=== PATIENT | female | born 2000 | race Caucasian/White ===

== ENCOUNTER 2024-01-07 12:00 | Outpatient (AMB) | payer OTHER, SELFPAY ==
--- NOTE | 2024-01-07 12:00 | A.OFFWM_ITS ---
Intake Intake Visit Reasons: VIDEO OP Therapy Behavioral Health Assessment Weight Management Therapy Therapy Notes Details PT presents for initial session at this facility. She is transferring to [facility] [place] with this provider to continue counseling services. PT reports she is looking to continue receiving support navigating new life events impacting her emotional health. In May her parents went through a divorce after years of marriage issues and in July her health started declining, leading to her being formally diagnosed with PCOS and endometriosis in September. PT has been gaining weight due to medical issues impacting her body image, self-esteem, and quality of life, her relationship is also going through an adjustment as her sexual health has been impacted by new medical issues. Today we focused on completed the Intake assessment and Other topics covered in this encounter were: informed consent, privacy and confidentiality, practice policies, cancellation and communication procedures, telehealth protocol, fee agreements, and billing policies. PT will continue attending counseling on a weekly basis. Presenting Concerns Referral Source [facility] - Michelle Haas [facility] Reason for referral This Provider is now working timekeeper at [facility] [place] and patient wanted to continue counseling with same provider. Precipitating Event Pt has been in need of support navigating new life events impacting her emotional health. Living Situation Current Living Situation Relative's/Guardian's Chepe At risk of losing current housing? No Satisfied with current living situation? Yes Comments PT rotates in between her mom and dad's house. Social History Family history and relationship PT is the middle child. She has an older brother (29) and a youngest sister (19). They are very close. Her parents recently got (), and she's close to her dad, and her relationship with mom has it's ups and downs. Her maternal grandparents and paternal grandmother are alive and living close to her. She has a lot of cousins and aunts/uncles nearby. 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 Overall normal development. Diagnosed with ADHD in college around 2020. Social support Pt has a boyfriend, and they have been together for over 2 years. She has some close friends and considers herself a social person. Her family and boyfriend's family. Community support Providers. Alevism/Spirituality Raised Jew Cultural/Ethnic information . Legal Involvement and History Current or historical involvement with the legal system? None Education Highest grade completed PT has a Bachelor's in Psychology, Currently enrolled in educational program? Yes (currently enrolled in a Master's in mental health counseling program, expected to graduate in .) Interested in further educational program? No Educational Interests/Skills PT considers she has good communication skills, and is very organized, independent, and responsible. Employment Employment Status School Wants help to find employment? No Meaningful activities At night she plays a music meditation, reads a lot, and lately has been doing outside walks. Reading, listening to podcast, outside activities. Financial Situation Describe current financial situation Comfortable Financial assistance? 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 No Mental Health and Addiction Treatment Current/Past substance abuse? No Comments Uses cannabis 2-3 times a week (edibles, smokes) at night for sleep. Current/Past addictive behavior concerns? No Psychiatric history PT reports that her soares has been generally low since May, she has been more stressed, dealing with sleeping issues (falling and staying asleep), feeling sad, with low energy, isolated, and generally depressed. Feeling current life transitions such as her parent's divorce, moving with a partner to be close to college, enrolling in a Master's program, and new medical diagnosis are causing her the described emotional challenges. Psychiatric History: PT first started going to therapy at age 12, and saw multiple therapists from [age]. Went back to counseling and saw a psychiatrist at age 20. she was diagnosed with MANISHA younger, moderate depression, and ADHD. Got prescribed fluoxetine in college. Presented with SI at age 13 when as side effects from a medication Family Psychiatric History: Sister: anxiety and depression. Current Medications: - control -Metformin 500M, -Phentermine 15mg for weight management. -Magnesium at night -Inositol 1/2TBS 2 times a day. -Adderall as needed. Haven't used it in several months. Prescribed by Dr. Simba Baez MD. Medical and Physical Health Summary Additional Medical History not covered in history PCOS, endometriosis. Sees a seals engraver through [facility]. Sexual History concerns Related to endometriosis and pelvic inflamation. Physical exam in the last year? Yes Pain Screening Current pain? No Pain in the last few months? Yes (due to endometriosis.) Medications Is the patient compliant with medications? Yes ( control -Metformin 500M, -Phentermine 15mg for weight management. -Magnesium at night -Inositol 1/2TBS 2 times a day. -Adderall as needed. Haven't used it in several months. Prescribed by Dr. Simba Baez MD.) Does the patient have Tavera Guardian in place? Not applicable Does the patient use complimentary health approaches? Yes Trauma/Abuse History History of trauma? Yes Assessment & Plan Assessment & Plan (1) ADD (attention deficit disorder): Code(s): F98.8 - Other specified behavioral and emotional disorders with onset usually occurring in childhood and adolescence Qualifiers: Attention deficit-hyperactivity disorder type: predominantly inattentive (2) Adjustment disorder with depressed mood: Code(s): F43.21 - Adjustment disorder with depressed mood Plan We will continue meeting weekly via telehealth, and during the next 2 sessions, we will fully develop the treatment plan. Some of the client goals the patient identified today to guide treatment planning were 1) Learning to feel more in control of my emotions, 2) developing better coping skills, and 3) Navigating relationships. Next juan: 01/14/2024 Telehealth Telehealth Telehealth Platform: [place] Location of provider rendering services: practice address Location of patient: address on file Patient Identification confirmed using: Name, : Yes Telehealth method: video Patient verbally consented to treatment: Yes Patient verbally consented to billing insurance company: Yes Patient informed of any privacy concerns related to visit: Yes Minutes spent on Phone/Video with Pt.: 60 Coding Level of Care Code New Pt Tele Psy Diag Bree ([id number]) Patient Type New Diagnoses ADD (attention deficit disorder) F98.8 Attention deficit-hyperactivity disorder type: predominantly inattentive Adjustment disorder with depressed mood F43.21 Time Spent (min) 60 Comment Start time: 12:00, end time: 1:00pm
== END 2024-01-11 11:46 | disposition home or self-care (01) ==
LOC: HO.HOP 12:23
PROVIDERS: Visit Provider Counselor Mental Health
DX: F98.8 Other specified behavioral and emotional disorders with onset usually occurring in childhood and adolescence (principal); F43.21 Adjustment disorder with depressed mood
CPT/HCPCS: 90791

== ENCOUNTER → 2024-01-07 12:00 | Outpatient (BNVA) | payer OTHER, SELFPAY | PROVIDERS: Visit Provider Counselor Mental Health ==

== ENCOUNTER → 2024-01-14 13:09 | Outpatient (AMB) | payer OTHER, SELFPAY ==
--- NOTE | 2024-01-14 13:10 | A.OFFWM_ITS ---
Intake Intake Visit Reasons: VIDEO OP Therapy Behavioral Health Assessment Weight Management Therapy Therapy Notes Details Subjective: PT reports she has been dealing with medical issues related to endometriosis, also has been upset about a recent misunderstanding with her mother. Objective: Pt presents for a follow up visit via Telehealth Discussed functioning and Processed ongoing medical issues and new family conflicts with her mother. Validation and normalization of feelings, used reflective listening and provided feedback. Supported client navigating ways to resolve and approach events with mother and to start setting boundaries while dealing with guilty feelings. Psychoeducation around family dynamics/patterns provided. Treatment plan completed. Assessment/Response: * Mental status: stressed, sad but alert, oriented and functioning well. * Risk reported/identified: None PT responded well to modality Plan: Meet in 2 weeks. TREATMENT PLAN DATE: 10/14/2023 Diagnosis: F43.21 - Adjustment Disorder, With depressed mood. Chief complaint/presenting problem: Amalia is a 23 y/o female who presents to counseling services for support with a depressed mood triggered by life challenges and transition experiences this year. In May her parents went th rough a divorce after years of marriage issues and in July her health started declining, leading to her being formally diagnosed with PCOS and endometriosis in September. PT has been gaining weight due to medical issues impacting her body image, self-esteem, and quality of life, her relationship is also going through an adjustment as her sexual health has been impacted by new medical issues. PROBLEM 1: MEDICAL ISSUES. PT reports that she is adjusting to life with new medical conditions and this has been challenging, impacting her daily routine, relationship, and self-image. GOAL (1) Accept and adjust to life changes due to new medical conditions within the next 6 months. Objective: The client will develop coping mechanisms to manage emotional and physical adjustments related to medical conditions. Interventions: -Implement Behavioral Activation and Pro blem-Solving Therapy (BAPST) to help the client identify activities that are feasible with their new medical condition, promoting engagement and reducing feelings of helplessness. -Use Supportive Therapy (SpTh2) to provi de a safe space for the client to express concerns and grief about their medical changes and receive emotional validation and encouragement. PROBLEM 2: DEPRESSED MOOD. The patient is experiencing ongoing symptoms of depression that affect mood, energy levels, and overall daily functioning. GOAL (2): Learn to manage current symptoms of depression by learning useful strategies and processing sources of sadness within the next 4-6 months. Objective: The client will identify triggers of depressive mood and learn techniques to counter negative thoughts that lead to depression. Interventions: -Use Cognitive Behavioral Therapy (CBT) to help the client recognize and reframe negative thought patterns contributing to depressive moods. -Engage in Mindfulness-Based Cognitive T herapy (MBCT) to enhance the client?s awareness of the present moment and reduce rumination, fostering a more balanced emotional state. PROBLEM 3: RELATIONSHIP ISSUES. Pt stated current issues navigating relationship dynamics with parents post- divorce and addressing challenges in intimate relationships exacerbated by me dical issues. GOAL (3): Navigate changes in relationships with parents post-divorce and address issues in intimate relationships related to medical conditions effectively within the next 5 months. Objective: The client will improve communication skills and establish boundaries to foster healthier relationships. Interventions: -Use Supportive Therapy (SpTh2) to explo re feelings and develop strategies for communicating needs and expectations clearly to parents and partners. - Implement Cognitive Processing Therapy (CPT) to help the client process and reframe thoughts about self-worth and relational roles that have been affected by the medical condition, parental divorce, and issues with intimate partner. PLAN: -The proposed treatment plan focuses on addressing the client?s medical issues, depressive mood, and relationship challenges through a combination of cognitive- behavioral strategies, mindfulness, problem-solving, and supportive therapies. These interventions will aid in developing coping mechanisms, emotional regulation, and effective communication skills to improve the client's overall mental health and relational dynamics. -Therapy sessions will be held weekly. Assessment & Plan Assessment & Plan (1) ADD (attention deficit disorder): Code(s): F98.8 - Other specified behavioral and emotional disorders with onset usually occurring in childhood and adolescence Qualifiers: Attention deficit-hyperactivity disorder type: predominantly inattentive (2) Adjustment disorder with depressed mood: Code(s): F43.21 - Adjustment disorder with depressed mood Plan Next juan will be in 2 weeks. Next juan: 01/28/2024 at 1pm, via Telehealth. Telehealth Telehealth [facility]health [facility]: [facility] Location of provider rendering services: practice address Location of patient: address on file Patient Identification confirmed using: Name, : Yes Telehealth method: video Patient verbally consented to treatment: Yes Patient verbally consented to billing insurance company: Yes Patient informed of any privacy concerns related to visit: Yes Minutes spent on Phone/Video with Pt.: 50 Coding Level of Care Code Established Pt Tele Psytx 45 mins ([id number]) Patient Type Established Diagnoses ADD (attention deficit disorder) F98.8 Attention deficit-hyperactivity disorder type: predominantly inattentive Adjustment disorder with depressed mood F43.21 Time Spent (min) 50 Comment Start time:1:10pm - End time: 2:00pm
== END ==
PROVIDERS: Visit Provider Counselor Mental Health
DX: F98.8 Other specified behavioral and emotional disorders with onset usually occurring in childhood and adolescence (principal); F43.21 Adjustment disorder with depressed mood
CPT/HCPCS: 90834

== ENCOUNTER → 2024-01-14 13:09 | Outpatient (BNVA) | payer OTHER, SELFPAY | PROVIDERS: Visit Provider Counselor Mental Health ==

== ENCOUNTER → 2024-02-04 13:16 | Outpatient (BNVA) | payer OTHER, SELFPAY | PROVIDERS: Visit Provider Counselor Mental Health ==

== ENCOUNTER → 2024-02-04 13:16 | Outpatient (AMB) | payer OTHER, SELFPAY ==
--- NOTE | 2024-02-04 13:10 | A.OFFWM_ITS ---
Intake Intake Visit Reasons: VIDEO OP Therapy Behavioral Health Assessment Weight Management Therapy Therapy Notes Details Subjective: PT reports been better but still dealing with some family issues and stress around busy life/schedule. Objective: Reflective listening. Dicussed routine, soruces of stress and processed family dynamics/recent sohail olson and her perspective. Reflective listening implemented, constructive feedback provided. Reviewed communication approach and assertiveness. Behav. activation and organization tips provided. Assessment/Response: * Mental status: WNL * Risk reported/identified: None PT active, engaged. Interventions seemed appropriate. Assessment & Plan Assessment & Plan (1) ADD (attention deficit disorder): Code(s): F98.8 - Other specified behavioral and emotional disorders with onset usually occurring in childhood and adolescence Qualifiers: Attention deficit-hyperactivity disorder type: predominantly inattentive (2) Adjustment disorder with depressed mood: Code(s): F43.21 - Adjustment disorder with depressed mood Plan Next juan will be in 1 week. Next juan: 02/11/24 at 1pm, via Telehealth. Telehealth Telehealth Telehealth Platform: [facility] Location of provider rendering services: practice address Location of patient: address on file Patient Identification confirmed using: Name, : Yes Telehealth method: video Patient verbally consented to treatment: Yes Patient verbally consented to billing insurance company: Yes Patient informed of any privacy concerns related to visit: Yes Minutes spent on Phone/Video with Pt.: 55 (Start time:1:10pm - End time: ) Coding Level of Care Code Established Pt Tele Psytx 45 mins ([id number]) Patient Type Established Diagnoses ADD (attention deficit disorder) F98.8 Attention deficit-hyperactivity disorder type: predominantly inattentive Adjustment disorder with depressed mood F43.21 Time Spent (min) 50 Comment Start time: 1:10pm - End time: 2:00pm
== END ==
LOC: HO.HOP 13:16
PROVIDERS: Visit Provider Counselor Mental Health
DX: F98.8 Other specified behavioral and emotional disorders with onset usually occurring in childhood and adolescence (principal); F43.21 Adjustment disorder with depressed mood
CPT/HCPCS: 90834

== ENCOUNTER 2024-02-11 13:09 | Outpatient (AMB) | payer OTHER, SELFPAY ==
--- NOTE | 2024-02-11 13:00 | MHC.WMTHER ---
Intake Intake Visit Reasons: VIDEO OP Therapy Behavioral Health Assessment Weight Management Therapy Therapy Notes Details Subjective: Pt reports doing well but dealing with some tension as there has been some issues where she lives. Objective: Pt presents for a follow up session via Telehealth. Supportive listening, processes sources of stress. Used person-centered approach for validation, normalization of feelings and reflection while providing feedback. Problem-solving exercise. Sx management skills reviewed. Assessment/Response: Mental status: Tense but functioning well. Alert, oriented x3, cooperative Risk reported/identified: None PT active, engaged. Interventions seemed appropriate. Responded well to interventions and modalities. Assessment & Plan Assessment & Plan (1) ADD (attention deficit disorder): Code(s): F98.8 - Other specified behavioral and emotional disorders with onset usually occurring in childhood and adolescence Qualifiers: Attention deficit-hyperactivity disorder type: predominantly inattentive (2) Adjustment disorder with depressed mood: Code(s): F43.21 - Adjustment disorder with depressed mood Plan Continue weekly sessions. Next juan: 02/18/24 at 1pm, Telehealth Telehealth Telehealth [facility]health [facility] Location of provider rendering services: other Location of patient: address on file Patient Identification confirmed using: Name, : Yes Telehealth method: video Patient verbally consented to treatment: Yes Patient verbally consented to billing insurance company: Yes Patient informed of any privacy concerns related to visit: Yes Minutes spent on Phone/Video with Pt.: 60 Coding Level of Care Code Established Pt Tele Psytx >53 mins ([id number]) Patient Type Established Diagnoses ADD (attention deficit disorder) F98.8 Attention deficit-hyperactivity disorder type: predominantly inattentive Adjustment disorder with depressed mood F43.21 Time Spent (min) 60
== END 2024-02-11 14:00 | disposition home or self-care (01) ==
LOC: HO.HOP 13:09
PROVIDERS: Visit Provider Counselor Mental Health
DX: F98.8 Other specified behavioral and emotional disorders with onset usually occurring in childhood and adolescence (principal); F43.21 Adjustment disorder with depressed mood
CPT/HCPCS: 90837

== ENCOUNTER → 2024-02-11 13:09 | Outpatient (BNVA) | payer OTHER, SELFPAY | PROVIDERS: Visit Provider Counselor Mental Health ==

== ENCOUNTER → 2024-03-03 13:08 | Outpatient (AMB) | payer OTHER, SELFPAY ==
--- NOTE | 2024-03-03 12:45 | A.OFFWM_ITS ---
Intake Intake Visit Reasons: VIDEO OP Therapy Behavioral Health Assessment Weight Management Therapy Therapy Notes Details Subjective: PT reports she has been doing well for the most part. Sleeping, eating and health is well. She is dealing with some stress leading to not eating as well. Objective: PT presents for a follow up session via Telehealth. Discussed overall functioning and routine. 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 Worked in Stress-management, behavioral activation for priorities and self-care. Used CBT-based interventions for Sx management. Reflective feedback provided. Assessment/Response: * Mental status: WNL * Risk reported/identified:None PT responded well to modality. She was active and engaged. Plan: Continue weekly sessions. Assessment & Plan Assessment & Plan (1) ADD (attention deficit disorder): Code(s): F98.8 - Other specified behavioral and emotional disorders with onset usually occurring in childhood and adolescence Qualifiers: Attention deficit-hyperactivity disorder type: predominantly inattentive (2) Adjustment disorder with depressed mood: Code(s): F43.21 - Adjustment disorder with depressed mood Plan Next juan will be in 1 week. Next juan: 03/10/2024 at 1pm, via Telehealth. Telehealth [facility]health [facility] Location of provider rendering services: other Location of patient: address on file Patient Identification confirmed using: Name, : Yes Telehealth method: video Patient verbally consented to treatment: Yes Patient verbally consented to billing insurance company: Yes Patient informed of any privacy concerns related to visit: Yes Minutes spent on Phone/Video with Pt.: 60 Coding Level of Care Code Established Pt Tele Psytx >53 mins ([id number]) Patient Type Established Diagnoses ADD (attention deficit disorder) F98.8 Attention deficit-hyperactivity disorder type: predominantly inattentive Adjustment disorder with depressed mood F43.21 Time Spent (min) 60
== END ==
PROVIDERS: Visit Provider Counselor Mental Health
DX: F98.8 Other specified behavioral and emotional disorders with onset usually occurring in childhood and adolescence (principal); F43.21 Adjustment disorder with depressed mood
CPT/HCPCS: 90837

== ENCOUNTER → 2024-03-03 13:08 | Outpatient (BNVA) | payer OTHER, SELFPAY | PROVIDERS: Visit Provider Counselor Mental Health ==

== ENCOUNTER → 2024-03-17 13:26 | Outpatient (AMB) | payer OTHER, SELFPAY ==
--- NOTE | 2024-03-17 13:15 | A.OFFWM_ITS ---
Intake Intake Visit Reasons: VIDEO OP Therapy Behavioral Health Assessment Weight Management Therapy Therapy Notes Details Subjective: PT reports she had a great time with her family the last weekend celebrating her birthday. So far family dynamics are very well. On the other hand she is dealing with some stress due to issues with her school and changes to her Masters program. Lastly PT reported feeling with hard feelings due to current country political issues. Objective: PT presents for a follow up visit via Telehealth. Active listening, processed recent positive family activities and sources of stress. Processed current social/word-news events and her feelings after this weeks events. Validated and normalized feelings. Used CPT and CBT-based interventions. Assessment/Response: * Mental status: mild anxious/stress. Good functioning. Alert, oriented X3. * Risk reported/identified: None reported. Pt active and engaged and responded well to modality. Assessment & Plan Assessment & Plan (1) ADD (attention deficit disorder): Code(s): F98.8 - Other specified behavioral and emotional disorders with onset usually occurring in childhood and adolescence Qualifiers: Attention deficit-hyperactivity disorder type: predominantly inattentive (2) Adjustment disorder with depressed mood: Code(s): F43.21 - Adjustment disorder with depressed mood Plan Continue meeting on a weekly basis. Next juan: 03/24/2024 at 1pm, via Telehealth. Telehealth [facility]health [facility] Location of provider rendering services: practice address Location of patient: address on file Patient Identification confirmed using: Name, : Yes Telehealth method: video Patient verbally consented to treatment: Yes Patient verbally consented to billing insurance company: Yes Patient informed of any privacy concerns related to visit: Yes Minutes spent on Phone/Video with Pt.: 45 Coding Level of Care Code Established Pt Tele Psytx 45 mins ([id number]) Patient Type Established Diagnoses ADD (attention deficit disorder) F98.8 Attention deficit-hyperactivity disorder type: predominantly inattentive Adjustment disorder with depressed mood F43.21 Time Spent (min) 45 Comment Start time: 1:15pm, end time: 2:00pm
== END ==
LOC: HO.HOP 13:26
PROVIDERS: Visit Provider Counselor Mental Health
DX: F98.8 Other specified behavioral and emotional disorders with onset usually occurring in childhood and adolescence (principal); F43.21 Adjustment disorder with depressed mood
CPT/HCPCS: 90834

== ENCOUNTER → 2024-04-28 13:55 | Outpatient (AMB) | payer OTHER, SELFPAY ==
--- NOTE | 2024-04-28 13:20 | A.OFFWM_ITS ---
Intake Intake Visit Reasons: VIDEO OP Therapy Behavioral Health Assessment Weight Management Therapy Therapy Notes Details Subjective: The patient reports significant anxiety about upcoming medical procedures requiring anesthesia. She has also been experiencing a recent flare-up of endometriosis, which is causing frustration and additional stress. The patient is struggling with body image concerns and feelings of insecurity. During the session, she shared worries related to intimate relationships, particularly in light of her medical issues. Objective: The patient has not been seen since 03/17/2024. She presents for a telehealth counseling follow-up session. We utilized CBT and CPT-based interventions to address her concerns. We discussed strategies for practicing coping skills during moments of emotional stability to help rewire negative self-talk that is triggered when she is not feeling well. Assessment/Response: * Mental status: Euthymic with increased anxiety and frustration due to health issues. physical health-issues impacting functioning. * Risk reported/identified: None The patient was engaged in the session and actively participated in the interventions. She was open to practicing new coping techniques Assessment & Plan Assessment & Plan (1) ADD (attention deficit disorder): Code(s): F98.8 - Other specified behavioral and emotional disorders with onset usually occurring in childhood and adolescence Qualifiers: Attention deficit-hyperactivity disorder type: predominantly inattentive (2) Adjustment disorder with depressed mood: Code(s): F43.21 - Adjustment disorder with depressed mood Plan Follow up in a bi-weekly basis from now on. Next juan: 05/12/24 at 10am, telehealth. Telehealth Telehealth Telehealth Platform: [facility] Location of provider rendering services: practice address Location of patient: address on file Patient Identification confirmed using: Name, : Yes Telehealth method: video Patient verbally consented to treatment: Yes Patient verbally consented to billing insurance company: Yes Patient informed of any privacy concerns related to visit: Yes Minutes spent on Phone/Video with Pt.: 55 Coding Level of Care Code Established Pt Tele Psytx >53 mins ([id number]) Patient Type Established Diagnoses ADD (attention deficit disorder) F98.8 Attention deficit-hyperactivity disorder type: predominantly inattentive Adjustment disorder with depressed mood F43.21 Time Spent (min) 55 Comment Start time: 1:20, end tome: 2:15pm
--- OUTSIDE RECORDS SUMMARY | 2024-04-28 13:57 | XMS_ITS ---
Author Organization Rome Palm MD Address [address] [place] [phone] Care Team Providers Care Power Marketer Name Role Phone Cris Chang Primary Care Provider Allergies No Known Allergies REASON FOR VISIT Refill Medications Medication SIG (Take, Route, Fr equency, Duration) Notes Start Date End Date Status Phentermine HCl 15 MG 1 capsule Orally O nce a day for 30 days 01/14/2024 02/10/2024 Active Encounters Encounter Location Date Provider Diagnosis Rome Palm MD [address] [phone] 01/11/2024 Cris Chang Abnormal weight gain R63.5 Assessments Encounter Date Diagnosis (ICD Code) Assessment Notes Treatment Notes Treatment Clinical Notes Section Notes 01/11/2024 Abnormal weight gain (ICD-10 - R63.5) last filled per [facility]: 11/04/2023 Plan Of Treatment Medication Medication Name Sig Start Date Stop Date Notes Phentermine HCl 15 MG 1 capsule Orally O nce a day for 30 days 01/14/2024 02/10/2024 Next Appt Details Provider Name:Cris Chang , 05/11/2024 08:30:00 AM, [address] [place] [address], [phone], Progress Notes * Teressa JAQUEZOB:2000 (23 yo F)Acc No.[id number]:01/11/2024 Patient:?Paul JAQUEZobhan :2000???Age:23 Y???Sex:Female Address:[address] [place], [address] * Refills? Refill Phentermine HCl Capsule, 15 MG, Orally, 30 Capsule, 1 capsule, Once a day, 30 days, Refills=0 Subjective: * Chief Complaints: * ???Refill * Medical History:? * Surgical History:? * Hospitalization/Major Diagno stic Procedure:? * Medications:? * Allergies:?N.K.D.A.no[Allerg ies Verified] Objective: * Vitals:? Past Vitals:* 12/15/2023 Temp:97.0F, HR:90/min, Wt:13 3lbs, BMI:21.79Index, Ht:65.5in, Oxygen sat %:99% * 09/22/2023 Temp:96.3F, HR:70/min, Wt:14 3.7lbs, BMI:23.55Index, Ht:65.5in, Oxygen sat %:98% * 09/13/2023 HR:81/min, BP:108/68mm Hg, W t:143lbs, BMI:23.43Index, Ht:65.5in, Oxygen sat %:98% * Physical Examination:? Assessment: * Assessment: 1.?Abnormal weight gain - R6 3.5??? Plan: * Treatment: * Procedure Codes:? * true * Date:? Generated for Josue chris/Amish/Tristonitting on:?04/28/2024 01:57 PM EST
--- OUTSIDE RECORDS SUMMARY | 2024-04-28 13:57 | XMS_ITS | Patient Health Record ---
Author Organization [facility] Address [address] [place] [address] [id number] Care Team Providers Care Web Analytics Specialist Name Role Phone Cris Chang Primary Care Provider [phone] [facility] [phone] Allergies No Known Allergies Results Component Value Reference Range Notes PDF Report Reviewed date:09/01/2023 05:18:58 PM Interpretation: Performing Lab:[facility], [address] [place] [address], Phone - [phone], Director - Maulik Notes/Report: Ferritin-[id number] Reviewed date:09/01/2023 05:18:58 PM Interpretation: Performing Lab:[facility], [address] [facility], [place], Phone - [phone], Director - Maulik Notes/Report: Ferritin 67 15-150 ng/mL Insulin-[id number] Reviewed date:09/01/2023 05:18:58 PM Interpretation: Performing Lab:[facility], [address] [place] [address], Phone - [phone], Director - Maulik Notes/Report: Insulin 6.0 2.6-24.9 uIU/mL Cortisol-[id number] Reviewed date:09/01/2023 05:18:58 PM Interpretation: Performing Lab:[facility], [address] [facility] [facility], [place], Phone - [phone], Director - Maulik Notes/Report: Cortisol 12.9 6.2-19.4 ug/dL Please Note: The reference interval and flagging for this test is for an AM collection. If this is a PM collection please use: Cortisol PM: 2.3-11.9 [id number]-[id number] Reviewed date:09/01/2023 05:18:58 PM Interpretation: Performing Lab:[facility] [place], [address] [facility], Phone - [phone], Director Margarita Willingham Notes/Report: DHEA-Sulfate 169.0 110.0-431.7 ug/dL Iron and TIBC-[id number] Reviewed date:09/01/2023 05:18:57 PM Interpretation: Performing Lab:[facility] [place], [address] [facility], Phone - [phone], - Maulik Notes/Report: Iron Bind.Cap.(TIBC) 438 250-450 ug/dL UIBC 243 131-425 ug/dL Iron 195 27-159 ug/dL Iron Saturation 45 15-55 % Cortisol, Urinary Free-[id number] 2 Reviewed date:08/25/2023 11:15:22 AM Interpretation: Performing [facility], [address] [place] [address], Phone - [phone], Director - Jair Notes/Report: Test(s) 593144-Eydirlna,F,ug/L,U was developed and its performance characteristics determined by [facility]. It has not been cleared or approved by the Food and Drug Administration. Cortisol,F,ug/L,U 18 Undefined ug/L Cortisol,F,ug/24hr,U 38 6-42 ug/24 hr ACTH, Plasma-[id number] Reviewed date:09/05/2023 08:06:26 AM Interpretation: Performing Lab:[facility], [address] [place] [address], Phone - [phone], Director Margarita Willingham Notes/Report: ACTH, Plasma 8.2 7.2-63.3 pg/mL ACTH referenc e interval for samples collected between 7 and 10 AM. MR Abdomen Reviewed date:09/15/2023 04:21:56 PM Interpretation: Performing Lab: Notes/Report: Original Report PROCEDURE: MR ABDOMEN w + wo CONTRAST, MR PELVIS w + wo CONTRAST INDICATION: Excessive and frequent menstruation with irregular cycle. Patient presents with abdominal pains, fatigue, weight gain and bloating for 4 months. TECHNIQUE: Multiplanar unenhanced imaging followed by dynamic enhanced imaging through the abdomen following intravenous contrast. Multiplanar unenhanced followed by enhanced imaging was performed through the pelvis. Dotarem--14 mL was administered intravenously. 6 mL of the total vial is documented as waste. COMPARISON: None Available. FINDINGS: Abdomen: Liver morphology is normal. No pancreatic or biliary ductal dilatation. There are no focal renal masses or hydronephrosis. No focal masses in the spleen, adrenal glands, and pancreas. No lymphadenopathy or ascites. Pelvis: The bladder and urethra are unremarkable. Numerous small bilateral ovarian follicles. The uterus and cervix are unremarkable. No ascites or adenopathy. T1 and T2 signal in marrow and soft tissues is normal. No inguinal adenopathy. IMPRESSION: 1.No acute or suspicious findings. 2.Numerous small bilateral ovarian follicles. Correlate for possible polycystic ovarian syndrome. Signed by Susan Hayden MD Read by: SUSAN HAYDEN MD Reviewed and Electronically Signed by: SUSAN HAYDEN MD --- --------- Original Report -------- PROCEDURE: MR ABDOME N w + wo CONTRAST, MR PELVIS w + wo CONTRAST INDICATION: Excessiv e and frequent menstruation with irregular cycle. Patient presents with abdomi nal pains, fatigue, weight gain and bloating for 4 months. TECHNIQUE: Multiplan ar unenhanced imaging followed by dynamic enhanced imaging through the abdomen following intravenous contrast. Multiplanar unenhanced followed by enhanced imaging was performed through the pelvis. Dotarem--14 mL was administered intravenously. 6 mL of the total vial is documented as waste. COMPARISON: None Available. FINDINGS: Abdomen: Liver morphology is normal. No pancreatic or biliary ductal dilatation. There are no focal renal masses or hydronephrosis. No focal masses in t he spleen, adrenal glands, and pancreas. No lymphadenopathy or ascites. Pelvis: The bladder and uret hra are unremarkable. Numerous small bilateral ovarian follicles. The uterus and cervix are unremarkable. No ascites or adenopathy. T1 and T2 signal in marrow and soft tissues is normal. No inguinal adenopathy. IMPRESSION: 1.No acute or suspicious findings. 2.Numerous small bilateral ovarian follicles. Correlate for possible polycystic ovarian syndrome. Signed by Susan Hayden MD Read by: SUSAN Doan MD Reviewed and Electronically Signed by: SUSAN HAYDEN MD MR Pelvis (Organ) Reviewed date:09/15/2023 04:21:56 PM Interpretation: Performing Lab: Notes/Report: Original Report PROCEDURE: MR ABDOMEN w + wo CONTRAST, MR PELVIS w + wo CONTRAST INDICATION: Excessive and frequent menstruation with irregular cycle. Patient presents with abdominal pains, fatigue, weight gain and bloating for 4 months. TECHNIQUE: Multiplanar unenhanced imaging followed by dynamic enhanced imaging through the abdomen following intravenous contrast. Multiplanar unenhanced followed by enhanced imaging was performed through the pelvis. Dotarem--14 mL was administered intravenously. 6 mL of the total vial is documented as waste. COMPARISON: None Available. FINDINGS: Abdomen: Liver morphology is normal. No pancreatic or biliary ductal dilatation. There are no focal renal masses or hydronephrosis. No focal masses in the spleen, adrenal glands, and pancreas. No lymphadenopathy or ascites. Pelvis: The bladder and urethra are unremarkable. Numerous small bilateral ovarian follicles. The uterus and cervix are unremarkable. No ascites or adenopathy. T1 and T2 signal in marrow and soft tissues is normal. No inguinal adenopathy. IMPRESSION: 1.No acute or suspicious findings. 2.Numerous small bilateral ovarian follicles. Correlate for possible polycystic ovarian syndrome. Signed by Susan Hayden MD Read by: SUSAN HAYDEN MD Reviewed and Electronically Signed by: SUSAN HAYDEN MD --- --------- Original Report -------- PROCEDURE: MR ABDOME N w + wo CONTRAST, MR PELVIS w + wo CONTRAST INDICATION: Excessiv e and frequent menstruation with irregular cycle. Patient presents with abdomi nal pains, fatigue, weight gain and bloating for 4 months. TECHNIQUE: Multiplan ar unenhanced imaging followed by dynamic enhanced imaging through the abdomen following intravenous contrast. Multiplanar unenhanced followed by enhanced imaging was performed through the pelvis. Dotarem--14 mL was administered intravenously. 6 mL of the total vial is documented as waste. COMPARISON: None Available. FINDINGS: Abdomen: Liver morphology is normal. No pancreatic or biliary ductal dilatation. There are no focal renal masses or hydronephrosis. No focal masses in t he spleen, adrenal glands, and pancreas. No lymphadenopathy or ascites. Pelvis: The bladder and uret hra are unremarkable. Numerous small bilateral ovarian follicles. The uterus and cervix are unremarkable. No ascites or adenopathy. T1 and T2 signal in marrow and soft tissues is normal. No inguinal adenopathy. IMPRESSION: 1.No acute or suspicious findings. 2.Numerous small bilateral ovarian follicles. Correlate for possible polycystic ovarian syndrome. Signed by Susan Hayden MD Read by: SUSAN Doan MD Reviewed and Electronically Signed by: SUSAN HAYDEN MD Iron and TIBC-[id number] Reviewed date:01/14/2024 10:01:53 AM Interpretation: Performing Lab:[facility] [address], Phone - [phone], Director - [facility] Notes/Report: Iron Bind.Cap.(TIBC) 384 250-450 ug/dL UIBC 193 131-425 ug/dL Iron 191 27-159 ug/dL Iron Saturation 50 15-55 % Ferritin-[id number] Reviewed date:01/14/2024 10:01:53 AM Interpretation: Performing Lab:[facility] [address], Phone - [phone], Director [facility] Notes/Report: Ferritin 110 15-150 ng/mL CBC With Differential/Platel et-[id number] Reviewed date:01/14/2024 10:01:53 AM Interpretation: Performing Lab:[facility] [address], Phone - [phone], Director [facility] Notes/Report: WBC 8.7 3.4-10.8 x10E3/uL RBC 4.65 3.77-5.28 x10E6/uL Hemoglobin 14.6 11.1-15.9 g/dL Hematocrit 44.0 34.0-46.6 % MCV 95 79-97 fL MCH 31.4 26.6-33.0 pg MCHC 33.2 31.5-35.7 g/dL RDW 11.9 11.7-15.4 % Platelets 330 150-450 x10E3/uL Neutrophils 35 Not Estab. % Lymphs 38 Not Estab. % Monocytes 5 Not Estab. % Eos 21 Not Estab. % Basos 1 Not Estab. % Neutrophils (Absolute) 3.1 1.4-7.0 x10E3/uL Lymphs (Absolute) 3.2 0.7-3.1 x10E3/uL Monocytes(Absolute) 0.5 0.1-0.9 x10E3/uL Eos (Absolute) 1.9 0.0-0.4 x10E3/uL Baso (Absolute) 0.1 0.0-0.2 x10E3/uL Immature Granulocytes 0 Not Estab. % Immature Grans (Abs) 0.0 0.0-0.1 x10E3/uL Hematology Comments: Note: Verifie d by microscopic examination. PDF Report Reviewed date:01/14/2024 10:01:53 AM Interpretation: Performing Lab:[facility] [place], [facility], Phone - [phone], Director Margarita Willingham Notes/Report: PDF Report Reviewed date:09/05/2023 08:06:26 AM Interpretation: Performing Lab:[facility] [place], [address] [place] [address], Phone - [phone], Director Margarita Willingham Notes/Report: Cortisol-[id number] Reviewed date:08/10/2023 07:05:32 AM Interpretation: Performing Lab:[facility] [place] [facility], Phone - [phone], Director Margarita Willingham Notes/Report: Cortisol 23.3 6.2-19.4 ug/dL Please Note: The reference interval and flagging for this test is for an AM collection. If this is a PM collection please use: Cortisol PM: 2.3-11.9 Ferritin-[id number] Reviewed date:08/10/2023 07:05:32 AM Interpretation: Performing Lab:[facility], Phone - [phone], Director Margarita PEDRAZAJodry Notes/Report: Ferritin 99 15-150 ng/mL PDF Report Reviewed date:08/25/2023 11:15:22 AM Interpretation: Performing Lab:[facility] [place], Phone - [phone], Director - Jair Notes/Report: Test(s) 566120-Jnbbdacl,F,ug/L,U was developed and its performance characteristics determined by [facility]. It has not been cleared or approved by the Food and Drug Administration. Iron and TIBC-214134 Reviewed date:08/10/2023 07:05:32 AM Interpretation: Performing Lab:[facility], [address] [place] [address], Phone - [phone], Director - Maulik Notes/Report: Iron Bind.Cap.(TIBC) 426 250-450 ug/dL UIBC 196 131-425 ug/dL Iron 230 27-159 ug/dL Iron Saturation 54 15-55 % Vitamin G55-300001 Reviewed date:08/10/2023 07:05:32 AM Interpretation: Performing [facility], [address] [place] [address], Phone - [phone], - Maulik Notes/Report: Vitamin B12 066 667-5961 pg/mL CBC With Differential/Platel et-[id number] Reviewed date:08/10/2023 07:05:32 AM Interpretation: Performing Lab:[facility] [place], [address] [place] [address], Phone - [phone], Director Margarita Willingham Notes/Report: WBC 6.1 3.4-10.8 x10E3/uL RBC 4.65 3.77-5.28 x10E6/uL Hemoglobin 14.6 11.1-15.9 g/dL Hematocrit 43.4 34.0-46.6 % MCV 93 79-97 fL MCH 31.4 26.6-33.0 pg MCHC 33.6 31.5-35.7 g/dL RDW 12.0 11.7-15.4 % Platelets 255 150-450 x10E3/uL Neutrophils 42 Not Estab. % Lymphs 41 Not Estab. % Monocytes 7 Not Estab. % Eos 9 Not Estab. % Basos 1 Not Estab. % Neutrophils (Absolute) 2.6 1.4-7.0 x10E3/uL Lymphs (Absolute) 2.5 0.7-3.1 x10E3/uL Monocytes(Absolute) 0.4 0.1-0.9 x10E3/uL Eos (Absolute) 0.5 0.0-0.4 x10E3/uL Baso (Absolute) 0.1 0.0-0.2 x10E3/uL Immature Granulocytes 0 Not Estab. % Immature Grans (Abs) 0.0 0.0-0.1 x10E3/uL Thyroid Peroxidase (TPO) Ab- [id number] Reviewed date:08/10/2023 07:05:32 AM Interpretation: Performing Lab:[facility] [address], Phone - [phone], [facility] Maulik Notes/Report: Thyroid Peroxidase (TPO) Ab <9 0-34 IU/mL Thyroglobulin Antibody-[id number] 5 Reviewed date:08/10/2023 07:05:32 AM Interpretation: Performing Lab:[facility] [address] [place] [address], Phone - [phone], - Maulik Notes/Report: Thyroglobulin Antibody <1.0 0.0-0.9 IU/mL Thyroglobulin Antibody measured by [employer] . It should be noted that the presence of thyroglobulin antibodies may not be pathogenic nor diagnostic, especially at very low levels. The assay technology trainer has found that four percent of individuals without evidence of thyroid disease or autoimmunity will have positive TgAb levels up to 4 IU/mL. TSH reflex to [id number] Reviewed date:08/10/2023 07:05:32 AM Interpretation: Performing Lab:[facility] [address] [place] [address], Phone - [phone], Director - Maulik Notes/Report: TSH 1.320 0.450-4.500 uIU/mL PDF Report Reviewed date:08/10/2023 07:05:32 AM Interpretation: Performing Lab:[facility] [place] [address] [place] [address], Phone - [phone], - Maulik Notes/Report: US Pelvic Transabdominal Reviewed date:08/27/2023 05:09:07 PM Interpretation: Performing Lab: Notes/Report: Pelvic ultrasound dated August 26, 2023. No prior studies are available. HISTORY: Lower abdominal pain and irregular periods. FINDINGS: Transvesical imaging of the pelvis shows a uterus measuring 6.5 x 2.6 x 3.8 cm with a volume of 33 cc. The myometrium is uniform. Endometrial thickness is normal at 4 mm. The right ovary measures 2.7 x 1.6 x 2.4 cm with a volume of 5.4 cc. Normal follicles are appreciated. The left ovary measures 2.5 x 1.8 x 2.5 cm the volume of 5.8 cc. Small follicles are identified. No adnexal mass or free fluid is seen. IMPRESSION: Negative examination. Examination 42793. Thank you for allowing me to participate in the care of this patient. WSN: [id number] Ordering Physician: Cris Chang Dictated By: Filipe Guzman MD Pelvic ultrasound da jacoby August 26, 2023. No prior studies are available. HISTORY: Lower abdominal pain and irregular periods. FINDINGS: Transvesic al imaging of the pelvis shows a uterus measuring 6.5 x 2.6 x 3.8 cm with a volu me of 33 cc. The myometrium is uniform. Endometrial thickness is normal at 4 mm. The right ovary measures 2.7 x 1.6 x 2.4 cm with a volume of 5.4 cc. Normal follicles are appreciated. The left ovary measu res 2.5 x 1.8 x 2.5 cm the volume of 5.8 cc. Small follicles are identified. No adnexal mass or f ree fluid is seen. IMPRESSION: Negative examination. Examination 41520. Thank you for allowi ng me to participate in the care of this patient. WSN: [id number] Ordering Physician: Cris Chang Reason For Referral Reason Consult for Endometr iosis - any provider faxed No booking until jan need to call back end of September Diagnosis 1 Excessive and freque nt menstruation with irregular cycle (N92.1) Referral Organization [facility] Referring Provider First Name Cris Referring Provider Last Name Charlene Referring Provider Speciality Nurse Prac titioner Referred Provider Shayne Delacruz Referred Provider Specialty Ordnance Equipment Worker General Notes Danni MONSALVE 08/09 05:44:49 PM >faxed, Jenna MONSALVE 08/31/2023 03:52:42 PM > Called [phone] spoke to Nya right now They are booking in Jan recommend for patient to call directly to pre register. Called patient to notify., KEYSHAWNJOSÉJenna Che Anish 08/31/2023 03:55:13 PM > patient aware gave patient phone number Referral Priority Routine Referral Appointment Date 09/13/2023 Reason Patient recently shanice luated for endometriosis specialist who requested a gastroenterology evaluation to ensure endometriosis has not spread to bowels. We are pending endometriosis specialist notes which may be helpful to attach to this referral faxed Diagnosis 1 Deep endometriosis o f the uterus (N80.02) Referral Organization [facility] Referring Provider First Name Cris Referring Provider Last Name Charlene Referring Provider Speciality Nurse Prac titioneanish Referred Provider Marti Schofield Referred Provider Specialty Gastroentero logy General Notes KEYSHAWNMELLYElizabethharshil Oconnell 07/2023 01:35:14 PM > faxed, GRICELElizabethharshil Oconnell 09/22/2023 11:57:43 AM > faxed again Referral Priority Routine Medications Medication SIG (Take, Route, Frequency, Duration) Notes Start Date End Date Status metFORMIN HCl 500 MG 1 tablet with a meal Orally twice a day for 90 days Active Norgestimate-Eth Estradiol 0.25-35 MG-MCG 1 tablet Orally Once a day for 90 days Please supply pt with 3 months at a time Active Phentermine HCl 15 MG TAKE 1 CAPSULE BY MOUTH EVERY DAY FOR 30 DAYS for 30 04/17/2024 Active Lia 3-0.03 MG Oral for 84 Days Not-Taking Immunizations Vaccine Route Administration Date Status Comme nts *Gardasil 9-HPV9v Unknown 05/21/2014 Administered *Gardasil 9-HPV9v Unknown 07/20/2014 Administered *Gardasil 9-HPV9v Unknown 11/26/2014 Administered *Tdap Unknown 05/12/2010 Administered *Tdap Unknown 12/10/2021 Administered WSQSU-56-Plctkst Vaccine Unknown 08/29/2020 Administere d TLNST-75-Qgvysny Vaccine Unknown 09/26/2020 Administere d ITBZJ-84-Gzkzqjv Vaccine Unknown 05/01/2021 Administere d DTaP Unknown 2000 Administered DTaP Unknown 06/13/2001 Administered DTaP Unknown 03/31/2005 Administered GQnG-Uty-PLS Unknown 2000 Administered UCkH-Tel-KOI Unknown 2000 Administered Hep A, ped/adol, 2 dose Unknown 06/17/2017 Administered Hep A, ped/adol, 2 dose Unknown 09/12/2020 Administered Influenza-Afluria (IIV4) Unknown 06/02/2018 Administere d Influenza-Afluria (IIV4) Unknown 05/19/2019 Administere d Influenza-Afluria (IIV4) Unknown 03/19/2021 Administere d IPV Unknown 2000 Administered IPV Unknown 03/31/2005 Administered Meningococcal Group B Unknown 06/02/2018 Administered Meningococcal Group B Unknown 07/05/2018 Administered Meningococcal MCV4O (CVX 114) Unknown 06/02/2018 Admini stered Meningococcal MCV4O (CVX 136) Unknown 05/16/2012 Admini stered MMR Unknown 03/21/2004 Administered MMRV Unknown 03/11/2001 Administered Varicella Unknown 05/12/2010 Administered Social History Tobacco Use: Social History Observation Description Date Details (start date - stop date) Never Smoker NA - NA Tobacco Use/Smoking Question Answer Notes Are you a nonsmoker Alcohol Screen (Audit-C) Question Answer Notes Did you have a drink contain ing alcohol in the past year? Yes How often did you have a dri nk containing alcohol in the past year? Monthly or less (1 point) How many drinks did you have on a typical day when you were drinking in the past year? 1 or 2 drinks (0 point) How often did you have 6 or more drinks on one occasion in the past year? Never (0 point) Points 1 Interpretation Negative Section Notes: [facility] - mental health counselor [facility] - mental health counselor [facility] - mental health counselor [facility] mental health counselor [facility] mental health counselor [facility] mental health counselor [facility] mental health counselor Problems Problem Type SNOMED Code ICD Code Onset Dates Problem Status W/U Status Risk Notes Problem Iron deficiency anemia (33932220) Iron deficiency anemia, unspecified (D50.9) Active confirmed Problem 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 Problem Polycystic ovarian syndrome (E28.2) Active confirmed Problem Vitamin D deficiency (41632328) Vitamin D deficiency, unspecified (E55.9) Active confirmed Problem Mild recurrent major depression (16721273) Major depressive disorder, recurrent, mild (F33.0) Active confirmed Problem Irregular sleep-wake pattern (290489183) Circadian rhythm sleep disorder, 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 Problem Intermenstrual bleeding - irregular (63819634) Excessive and frequent menstruation with irregular cycle (N92.1) Active confirmed Vital Signs Heart Rate 90 /min 12/15/2023 Temperature 97.0 degrees Fahrenheit 12/15/2023 Blood pressure diastolic 68 mm Hg 09/13/2023 Oximetry 99 % 12/15/2023 Height 65.5 in 12/15/2023 Blood pressure systolic 108 mm Hg 09/13/2023 Weight 133 lbs 12/15/2023 BMI 21.79 kg/m2 12/15/2023 Encounters Encounter Location Date Provider Diagnosis [facility] MD [address] [id number] 07/29/2023 Cris Chang Excessive and freque nt menstruation with irregular cycle N92.1 and Circadian rhythm sleep disorder, irregular sleep wake type G47.23 [facility] MD [address] [id number] 08/30/2023 Cris Chang Excessive and freque nt menstruation with irregular cycle N92.1 ; Circadian rhythm sleep disorder, irregular sleep wake type G47.23 ; Lower abdominal pain, unspecified R10.30 ; Acne vulgaris L70.0 and Other adrenocortical overactivity E27.0 [facility] MD [address] [id number] 09/13/2023 Cris Chang Excessive and freque nt menstruation with irregular cycle N92.1 ; Lower abdominal pain, unspecified R10.30 and Deep endometriosis of the uterus N80.02 [facility] MD [address] [id number] 09/22/2023 Cris Chang Excessive and freque nt menstruation with irregular cycle N92.1 ; Deep endometriosis of the uterus N80.02 ; Polycystic ovarian syndrome E28.2 ; Major depressive disorder, recurrent, mild F33.0 and Encounter for surveillance of contraceptive pills Z30.41 [facility] MD [address] [id number] 12/15/2023 Cris Chang Iron deficiency anem ia, unspecified D50.9 ; Deep endometriosis of the uterus N80.02 ; Polycystic ovarian syndrome E28.2 ; Body mass index [BMI] 21.0-21.9, adult Z68.21 and Acute vaginitis N76.0 [facility] MD [address] [id number] 09/22/2023 Cris Chang [facility] MD [address] [id number] 07/26/2023 Cris Chang [facility] MD [address] [id number] 07/29/2023 Cris Chang [facility] MD [address] [id number] 08/10/2023 Cris Chang Other adrenocortical overactivity E27.0 [facility] MD [address] [id number] 08/16/2023 Cris Chang Lower abdominal pain , unspecified R10.30 [facility] MD [address] [id number] 08/25/2023 Cris Chang [facility] MD [address] [id number] 09/01/2023 Cris Chang Other adrenocortical overactivity E27.0 [facility] MD [address] [id number] 09/08/2023 Cris Chang [facility] MD [address] [id number] 09/15/2023 Cris Chang [facility] MD [address] [id number] 09/21/2023 Cris Chang [facility] MD [address] [id number] 09/30/2023 Cris Chang [facility] MD [address] [id number] 11/04/2023 Cris Chang Abnormal weight gain R63.5 [facility] MD [address] [id number] 11/29/2023 Cris Chang Encounter for surveillance of contraceptive pills Z30.41 [facility] MD [address] [place] [id number] 12/02/2023 [facility] Abnormal weight gain R63.5 [facility] MD [facility] [address] [place] [address] [id number] 12/03/2023 Cris Palm MD [facility] [address] [facility] [address] [place] [address] [id number] 01/06/2024 Cris Changharshil Palm MD [facility] [address] [facility] [address] [place] [address] [id number] 01/06/2024 Cris Chang Polycystic ovarian syndrome E28.2 and Abnormal weight gain R63.5 [facility] [address] [place] [address] [place] [address] [id number] 01/10/2024 Cris Chang Polycystic ovarian syndrome E28.2 [facility] MD [facility] [address] [place] [address] [place] [address] [id number] 01/11/2024 Cris Chang Abnormal weight gain R63.5 [facility] [address] [place] [address] [place] [address] [id number] 04/17/2024 Cris Chang [facility] [address] [place] [address] [place] [address] [id number] 08/16/2023 [facility] [address] [place] [address] [place] [address] [id number] 08/17/2023 [facility] [address] [place] [address] [place] [address] [id number] 08/19/2023 [facility] [address] [place] [address] [place] [address] [id number] 08/31/2023 [facility] [address] [place] [address] [place] [address] [id number] 09/01/2023 Cris [facility]harshil [facility] [address] [place] [address] [place] [address] [id number] 09/06/2023 [facility] [address] [place] [address] [id number] 09/08/2023 Cris Chang Deep endometriosis o f the uterus N80.02 [facility] [address] [place] [address] [place] [address] [id number] 09/16/2023 [facility] [address] [place] [address] [id number] 09/16/2023 Cris Palm MD [address] [id number] 09/16/2023 Cris Palm MD [address] [id number] 09/22/2023 Cris Palm MD [address] [id number] 09/27/2023 Cris Palm MD [address] [id number] 09/28/2023 Cris Chang Abnormal weight gain R63.5 Rome Palm MD [address] [id number] 10/05/2023 Cris Palm MD [address] [id number] 11/28/2023 Cris Chang Encounter for surveillance of contraceptive pills Z30.41 Rome Palm MD [address] [id number] 01/06/2024 Cris Palm MD [address] [id number] 01/17/2024 Cris Chang Assessments Encounter Date Diagnosis (ICD Code) Assessment Notes Treatment Notes Treatment Clinical Notes Section Notes 07/29/2023 Circadian rhythm sleep disorder, 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 Will obtain labs to further evaluate. Also discussed with patient that if there is no findings in her lab work she may benefit from a sleep consult.Also spent time discussing underlying depression as this could cause some fatigue symptoms and patient declined having any low moods or any life events that would cause increased depressive symptoms. Patient agreeable to have labs drawn and to follow-up in 4 to 6 weeks in office for further evaluation and determine if additional lab work is warranted given her symptoms 07/29/2023 Excessive and frequent menstruation with irregular cycle (ICD-10 - N92.1) Discussed with patient her change in her menstrual cycle since May. It is unclear what is the underlying cause but will obtain labs to assess for any thyroid dysfunction. 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 Patient admits to not having great sleep patterns due to college and the stress of her current medical symptoms. Discussed an underlying sleep study and patient would like to hold on moving forward with any additional testing until further evaluation by JUNIOR ESTIMATOR and endometriosis specialist is completed. Patient to continue working on better sleep hygiene practices and coping strategies to assist with underlying anxieties 08/30/2023 Excessive and frequent menstruation with irregular cycle (ICD-10 - N92.1) Discussed with patient her change in her menstrual cycle since May. She also experiences abdominal bloating, cramping, painful intercourse at times, and lower back pain. Discussed with patient that obtaining updated labs can help determine if there is an underlying PCOS diagnosis which is causing this change in her menstrual cycles. Other potential diagnosis would be endometriosis given her abdominal bloating, painful intercourse, and menstrual cycle changes along with weight gain. Will obtain an abd/pelvic MRI for further evaluation. Patient agreeable to have a referral placed to an endometriosis specialist for further evaluation as well.Patient states she is also seeing her pay per click strategist tomorrow for further evaluation for underlying symptoms and will update our office with any additional findings or concerns that her JUNIOR ESTIMATOR may have 09/22/2023 Deep endometriosis of the uterus (ICD-10 - N80.02) Reviewed high suspicion of endometriosis and patient is planning to schedule a surgery date but states that that surgery dates are booking out 1 year in advance. Patient to continue seeing the endometriosis specialist as scheduled and to follow-up in office with any new or concerning symptoms.Also discussed with patient she may want to adjust her diet to have low gluten as gluten does seem to be an irritant and can exacerbate endometriosis symptoms. 09/28/2023 Abnormal weight gain (ICD-10 - R63.5) checked [facility], no previous scripts listed 11/04/2023 Abnormal weight gain (ICD-10 - R63.5) last filled per [facility]: 09/28/2023 11/28/2023 Encounter for surveillance of contraceptive pills (ICD-10 - Z30.41) 11/29/2023 Encounter for surveillance of contraceptive pills (ICD-10 - Z30.41) 12/02/2023 Abnormal weight gain (ICD-10 - R63.5) 12/15/2023 Iron deficiency anemia, unspecified (ICD-10 - D50.9) Patient has had previous lab results with findings of elevated iron levels. 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 Patient to continue tracking her cycles and she is aware that for the first 3 months of this new medication regimen she may notice vaginal spotting. Patient to follow-up should she have any concerns other than some irregular spotting while adjusting to this medication regimen 09/13/2023 Lower abdominal pain, unspecified (ICD-10 - R10.30) See plan above 09/22/2023 Excessive and frequent menstruation with irregular cycle (ICD-10 - N92.1) Patient to continue taking her new combined oral contraceptive pills and to continuously cycle as discussed with her by the endometriosis specialist. Patient to continue tracking her cycles and she is aware that for the first 3 months of this new medication regimen she may notice vaginal spotting. Patient to follow-up should she have any concerns other than some irregular spotting while adjusting to this medication regimen 12/15/2023 Deep endometriosis of the uterus (ICD-10 - N80.02) Reviewed again the high suspicion of endometriosis and patient is planning to be seen by Endometriosis specialist in September. Also discussed with patient she may want to adjust her diet to have low gluten as gluten does seem to be an irritant and can exacerbate endometriosis symptoms. 01/06/2024 Polycystic ovarian syndrome (ICD-10 - E28.2) 01/10/2024 Polycystic ovarian syndrome (ICD-10 - E28.2) 01/11/2024 Abnormal weight gain (ICD-10 - R63.5) last filled per [facility]: 11/04/2023 01/06/2024 Abnormal weight gain (ICD-10 - R63.5) last filled: 11/04/2023 09/13/2023 Deep endometriosis of the uterus (ICD-10 - N80.02) Discussed with patient the endometriosis specialists agreement that her presenting symptoms seem consistent with that of endometriosis. Patient is pending an abdominal and pelvic MRI tomorrow patient is she aware that it is not uncommon for endometriosis to be missed on further imaging. Patient is planning to schedule a surgery date but states that that surgery dates are booking out 1 year in advance. Patient to continue seeing the endometriosis specialist as scheduled and to follow-up in office with any new or concerning symptoms.Also discussed with patient she may want to adjust her diet to have low gluten as gluten does seem to be an irritant and can exacerbate endometriosis symptoms. Patient to also consider beginning supplements such as Inositol and Vitex for further hormonal support 09/22/2023 Polycystic ovarian syndrome (ICD-10 - E28.2) Reviewed recent MRI findings that suggest PCOS given increased ovarian follicles. Discussed that PCOS and endometriosis can be found together and the best management for PCOS is to manage insulin resistance. Patient to begin metformin and would also like patient to start Wegovy to see if this cannot only assist in managing her insulin resistance, but assist with weight loss which I do suspect is due to hormonal imbalances, insulin resistance, and underlying PCOS 12/15/2023 Polycystic ovarian syndrome (ICD-10 - E28.2) Previous MRI findings did suggest PCOS given increased ovarian follicles. Discussed that PCOS and endometriosis can be found together and the best management for PCOS is to manage insulin resistance. Patient to begin metformin and patient to continue working on weight loss to assist with managing symptoms of underlying PCOS 08/30/2023 Lower abdominal pain, unspecified (ICD-10 - R10.30) See plan above 08/30/2023 Acne vulgaris (ICD-10 - L70.0) Discussed with patient her current acne concerns as well as minimal findings of areas of extreme acne on her face. Patient to continue her current face wash regimen and should her acne increase, patient to follow-up to discuss potential medication treatments. Discussed with patient that should her DHEA levels be elevated, patient may have underlying PCOS and we can begin treatment with metformin as well as topical MetroGel to assist with symptoms of PCOS 09/22/2023 Major depressive disorder, recurrent, mild (ICD-10 - F33.0) Patient has shared that her weight gain and new underlying diagnoses have caused much stress and anxiety. She feels as though these diagnoses are depressing at times and would like to have a therapist to discuss her feelings. She denies the need for medication at this time and encouraged patient to contact her insurance carrier to determine what therapists are in network in this area for her 12/15/2023 Body mass index [BMI] 21.0-21.9, adult (ICD-10 - Z68.21) Patient to continue working with her dietitian and adjusting her diet to assist with weight loss. She has lost 10 pounds since last visit the patient feels as though her symptoms are well-managed and she is feeling much better about herself since this weight loss. Patient follow-up in 3 months to reassess weight and ensure symptoms continue to improve 12/15/2023 Acute vaginitis (ICD-10 - N76.0) Discussed with patient her symptoms of increased vaginal discharge and discussed with patient that continuously cycling on her SUSANNAH's may be the underlying cause as we are now balancing her hormones. Discussed with patient that if she has no vaginal itching, odor, or urinary symptoms of concern, this may be a normal finding now that we are regulating her hormones. Patient to follow-up should she have any symptoms of concern and she is to continue with continuous cycling of her SUSANNAH's to help manage her underlying. 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 Patient did complete a 24-hour urine test for cortisol and those levels were within normal range. Will repeat patient's cortisol level for further evaluation and to determine if this remains elevated. Discussed with patient that increase stress and anxiety could cause elevation in her cortisol which could be an underlying factor in her inability to lose weight. Patient to continue working on coping strategies and decreasing her anxiety to further assist with weight loss 09/22/2023 Encounter for surveillance of contraceptive pills (ICD-10 - Z30.41) Pt to remain on current COCs as she likes this form of control Plan Of Treatment Pending Test Test Name Order Date QUANTIFERON TB GOLD 04/26/2023 Next Appt Details Provider Name:Cris R Charlene , 05/11/2024 08:30:00 AM, [address] [place] [address], [address], [place], [place], [phone], Insurance Providers Payer Name Payer Address Payer Phone Subscriber Number Group Number Insured Name Patient Relationship to Insured Coverage Start Date Coverage End Date [employer] [address] [place], [place] [address] [id number] Amalia Marquez Self - patient is the insured Medical (General) History Medical History History ICD Code Asthma (as a child - resolved) Surgical History Surgery Date(Month/Year) Hospitalization History Reason Date(Month/Year)
--- OUTSIDE RECORDS SUMMARY | 2024-04-28 13:57 | XMS_ITS ---
Author Organization Rome Palm MD Address [address] [place] [address] [phone] Care Team Providers Care Public Health Clinical Nurse Specialist Name Role Phone Cris Chang Primary Care Provider Allergies No Known Allergies REASON FOR VISIT refill Medications Medication SIG (Take, Route, Fr equency, Duration) Notes Start Date End Date Status Phentermine HCl 15 MG TAKE 1 CAPSULE BY MOUTH EVERY DAY FOR 30 DAYS for 30 04/17/2024 Active Encounters Encounter Location Date Provider Diagnosis Rome Palm MD [address] [place] [address] [place] [address] [phone] 04/17/2024 Cris Chang Plan Of Treatment Medication Medication Name Sig Start Date Stop Date Notes Phentermine HCl 15 MG TAKE 1 CAPSULE BY MOUTH EVERY DAY FOR 30 DAYS for 30 04/17/2024 Next Appt Details Provider Name:Cris Chang , 05/11/2024 08:30:00 AM, [address] [place] [address], [address], [phone], Progress Notes * Nicolas JAQUEZhanDOB:2000 (24 yo F)Acc No.[id number]:04/17/2024 Patient:?GISELE Amalia :2000???Age:24 Y???Sex:Female Address:[place], [address] * Refills? Refill Phentermine HCl Capsule, 15 MG, 30 Capsule, TAKE 1 CAPSULE BY MOUTH EVERY DAY FOR 30 DAYS, 30, Refills=0 Subjective: * Chief Complaints: * ???Refill [...] Oxygen sat %:98% * Physical Examination:? Assessment: Plan: * Treatment: * Procedure Codes:? * true * Date:? Generated for Josue chris/Amish/Ruchismitting on:?04/28/2024 01:56 PM EST
--- OUTSIDE RECORDS SUMMARY | 2024-04-28 13:57 | XMS_ITS ---
Author Organization Rome Palm MD Address [address] [place] [address] [phone] Care Team Providers Care Supervisor Rose Grading Name Role Phone Cris Chang Primary Care Provider REASON FOR VISIT Stomach pain Encounters Encounter Location Date Provider Diagnosis Rome Palm MD [address] [facility] [place] [address] [place] [address] [phone] 01/17/2024 Cris Chang Plan Of Treatment Next Appt Details Provider Name:Cris Chang , 05/11/2024 08:30:00 AM, [address] [place] [address], [place] [address], [place], [place], [phone], Progress Notes * Nicolas JAQUEZhanDOB:2000 (23 yo F)Acc No.[id number]:01/17/2024 Patient:?GISELE Amalia :2000???Age:23 Y???Sex:Female Address:[address], [place], [address] * true * Date:? Generated for Printi ng/Faalethag/eTransmitting on:?04/28/2024 01:56 PM EST
== END ==
LOC: HO.HOP 13:55
PROVIDERS: Visit Provider Counselor Mental Health
DX: F98.8 Other specified behavioral and emotional disorders with onset usually occurring in childhood and adolescence (principal); F43.21 Adjustment disorder with depressed mood
CPT/HCPCS: 90837

== ENCOUNTER 2024-06-23 12:11 | Outpatient (AMB) | payer OTHER, SELFPAY ==
--- NOTE | 2024-06-23 12:12 | MHC.WMTHER ---
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 Her health has been stable since her last relapse around . Objective: The patient presents for a follow-up visit via Telehealth. She has not been seen in nearly two months due to [place] of [place]. . We discussed her current functioning, daily routine, challenges, and progress. Cognitive Processing Therapy (CPT) and reflective listening were utilized to address symptoms and support the use of coping skills. Her feelings were validated, and her thoughts were reframed to help shift perspectives. Assessment/Response: Mental Status: Euthymic, oriented to person, place, and time (x3), alert. Demonstrates good functioning overall. Risk Reported/Identified: None. The patient was open, engaged, and actively participated in the session. Assessment & Plan Assessment & Plan (1) ADD (attention deficit disorder): Code(s): F98.8 - Other specified behavioral and emotional disorders with onset usually occurring in childhood and adolescence Qualifiers: Attention deficit-hyperactivity disorder type: predominantly inattentive (2) Adjustment disorder with depressed mood: Code(s): F43.21 - Adjustment disorder with depressed mood Plan Follow up in a bi-weekly basis. Next juan: 07/07/24 at 12am, telehealth. Telehealth [facility]health [facility] services: practice address Location of patient: address on file Patient Identification confirmed using: Name, : Yes Telehealth method: video Patient verbally consented to treatment: Yes Patient verbally consented to billing insurance company: Yes Patient informed of any privacy concerns related to visit: Yes Minutes spent on Phone/Video with Pt.: 50 Coding Level of Care Code Established Pt Tele Psytx 45 mins (13121) Patient Type Established Diagnoses ADD (attention deficit disorder) F98.8 Attention deficit-hyperactivity disorder type: predominantly inattentive Adjustment disorder with depressed mood F43.21 Time Spent (min) 50
--- OUTSIDE RECORDS SUMMARY | 2024-06-23 12:42 | XMS_ITS ---
Author Organization Rome Palm MD Address [address] [place] [address] [phone] Care Team Providers Care Farm Implement Engine Mechanic Name Role Phone Cris Chang Primary Care Provider [phone] Allergies No Known Allergies REASON FOR VISIT REFILL Medications Medication SIG (Take, Route, Fr equency, Duration) Notes Start Date End Date Status Phentermine HCl 15 MG 1 capsule Orally O nce a day for 30 days 06/14/2024 Active Encounters Encounter Location Date Provider Diagnosis Rome Palm MD [address] [place] [address] [phone] 06/15/2024 Cris Chang Plan Of Treatment Medication Medication Name Sig Start Date Stop Date Notes Phentermine HCl 15 MG 1 capsule Orally O nce a day for 30 days 06/14/2024 Next Appt Details Provider Name:Cris Chang , 07/27/2024 03:30:00 PM, [address] [place] [address], [address], [phone], Progress Notes * Nicolas JAQUEZhanDOB:2000 (24 yo F)Acc No.[id number]:06/15/2024 Patient:?GISELE Amalia :2000???Age:24 Y???Sex:Female [address] [facility] [place] [address] * Refills? Refill Phentermine HCl Capsule, 15 MG, Orally, 30 Capsule, 1 capsule, Once a day, 30 days, Refills=0 Subjective: * Chief Complaints: * ???REFILL * Medical History:? * Surgical History:? * [...] true * Date:? Generated for Josue chris/Amish/Tristonitting on:?06/23/2024 12:41 PM EST
--- OUTSIDE RECORDS SUMMARY | 2024-06-23 12:42 | XMS_ITS | Patient Health Record ---
Author Organization Rome Palm MD Address [address] [place] [address] [id number] Care Team Providers Care Advertising Agent Name Role Phone Cris Chang Primary Care Provider Rome Palm Unavailable [phone] Allergies No Known Allergies Results Component Value Reference Range Notes Cortisol, Urinary Free-04401 2 Reviewed date:08/25/2023 11:15:22 AM Interpretation: Performing Lab:[facility], [address] [place] [address], Phone - [phone], Director - Jair Notes/Report: Test(s) 638714-Fuwtczmr,F,ug/L,U was developed and its performance characteristics determined by [facility]. It has not been cleared or approved by the Food and Drug Administration. Cortisol,F,ug/L,U 18 Undefined ug/L Cortisol,F,ug/24hr,U 38 6-42 ug/24 hr PDF Report Reviewed date:08/25/2023 11:15:22 AM Interpretation: Performing Lab:[facility], [address] [place] [address], Phone - [phone], Director - Jair Notes/Report: Test(s) 513849-Lqicrovq,F,ug/L,U was developed and its performance characteristics determined by [facility]. It has not been cleared or approved by the Food and Drug Administration. ACTH, Plasma-303537 Reviewed date:09/05/2023 08:06:26 AM Interpretation: Performing Lab:[facility], [address] [place] [address], Phone - [phone], Director - Maulik Notes/Report: ACTH, Plasma 8.2 7.2-63.3 pg/mL ACTH referenc e interval for samples collected between 7 and 10 AM. PDF Report Reviewed date:09/05/2023 08:06:26 AM Interpretation: Performing Lab:[facility] [address] [place] [address], Phone - [phone], Maulik Notes/Report: Iron and TIBC-[id number] Reviewed date:09/01/2023 05:18:57 PM Interpretation: Performing Lab:[facility] [address], Phone - [phone], Director Margarita Willingham Notes/Report: Iron Bind.Cap.(TIBC) 438 250-450 ug/dL UIBC 243 131-425 ug/dL Iron 195 27-159 ug/dL Iron Saturation 45 15-55 % ALBK-[id number] Reviewed date:09/01/2023 05:18:58 PM Interpretation: Performing Lab:[facility] [address] [place] [address], Phone - [phone], Director Margarita Willingham Notes/Report: DHEA-Sulfate 169.0 110.0-431.7 ug/dL Cortisol-[id number] Reviewed date:09/01/2023 05:18:58 PM Interpretation: Performing Lab:[facility] [address] [place] [address], Phone - [phone], [facility] Notes/Report: Cortisol 12.9 6.2-19.4 ug/dL Please Note: The reference interval and flagging for this test is for an AM collection. If this is a PM collection please use: Cortisol PM: 2.3-11.9 Insulin-[id number] Reviewed date:09/01/2023 05:18:58 PM Interpretation: Performing Lab:[facility] [address] [place] [address], Phone - [phone], [facility] Notes/Report: Insulin 6.0 2.6-24.9 uIU/mL Ferritin-729272 Reviewed date:09/01/2023 05:18:58 PM Interpretation: Performing Lab:[facility] [address] [place] [address], Phone - [phone], [facility] Maulik Notes/Report: Ferritin 67 15-150 ng/mL PDF Report Reviewed date:09/01/2023 05:18:58 PM Interpretation: Performing Lab:[facility] [address] [place] [address], Phone - [phone], Director [facility] Notes/Report: Iron and TIBC-965495 Reviewed date:08/10/2023 07:05:32 AM Interpretation: Performing Lab:[facility], Phone - [phone], [facility] alison Notes/Report: Iron Bind.Cap.(TIBC) 426 250-450 ug/dL UIBC 196 131-425 ug/dL Iron 230 27-159 ug/dL Iron Saturation 54 15-55 % Vitamin [id number] Reviewed date:08/10/2023 07:05:32 AM Interpretation: Performing Lab:[facility], Phone - [phone], Maulik Notes/Report: Vitamin B12 857 940-6077 pg/mL Cortisol-346293 Reviewed date:08/10/2023 07:05:32 AM Interpretation: Performing Lab:[address], Phone - [phone], [facility] Notes/Report: Cortisol 23.3 6.2-19.4 ug/dL Please Note: The reference interval and flagging for this test is for an AM collection. If this is a PM collection please use: Cortisol PM: 2.3-11.9 Ferritin-[id number] Reviewed date:08/10/2023 07:05:32 AM Interpretation: Performing Lab:[facility], Phone - [phone], Maulik Notes/Report: Ferritin 99 15-150 ng/mL CBC With Differential/Platel et-571850 Reviewed date:08/10/2023 07:05:32 AM Interpretation: Performing Lab:[facility], Phone - [phone], Director - Maulik Notes/Report: WBC 6.1 3.4-10.8 x10E3/uL RBC 4.65 [...] 0.0 0.0-0.1 x10E3/uL Thyroid Peroxidase (TPO) Ab- 657295 Reviewed date:08/10/2023 07:05:32 AM Interpretation: Performing Lab:[facility] [place], Phone - [phone], Director - Bradlydry Notes/Report: Thyroid Peroxidase (TPO) Ab <9 0-34 IU/mL Thyroglobulin Antibody-92633 5 Reviewed date:08/10/2023 07:05:32 AM Interpretation: Performing Lab:[facility] [place] [address] [place] [address], Phone - [phone], Director - Shayy Notes/Report: Thyroglobulin Antibody <1.0 0.0-0.9 IU/mL Thyroglobulin Antibody measured by [facility] [employer] . It should be noted that the presence of thyroglobulin antibodies may not be pathogenic nor diagnostic, especially at very low levels. The assay flat sheet maker has found that four percent of individuals without evidence of thyroid disease or autoimmunity will have positive TgAb levels up to 4 IU/mL. TSH reflex to [id number] Reviewed date:08/10/2023 07:05:32 AM Interpretation: Performing Lab:[facility] [address] [place] [address], Phone - [phone], Director - Bradlydry Notes/Report: TSH 1.320 0.450-4.500 uIU/mL PDF Report Reviewed date:08/10/2023 07:05:32 AM Interpretation: Performing Lab:[facility] [address] [place] [address], Phone - [phone], Director - Maulik Notes/Report: US Pelvic Transabdominal Reviewed [...] fluid is seen. IMPRESSION: Negative examination. Examination 91120. Thank you for allowing me to participate in the care of this patient. WSN: [id number] Ordering Physician: Cris Chang Dictated By: Filipe [...] fluid is seen. IMPRESSION: Negative examination. Examination 94684. Thank you for allowi ng me to participate in the care of this patient. WSN: [id number] Ordering Physician: Cris Chang MR Abdomen Reviewed date:09/15/2023 04:21:56 PM Interpretation: [...] Signed by: SUSAN HAYDEN MD Iron and TIBC-170542 Reviewed date:01/14/2024 10:01:53 AM Interpretation: Performing Lab:[facility] [place], Phone - [phone], Director - Maulik Notes/Report: Iron Bind.Cap.(TIBC) 384 250-450 ug/dL UIBC 193 131-425 ug/dL Iron 191 27-159 ug/dL Iron Saturation 50 15-55 % Ferritin-253267 Reviewed date:01/14/2024 10:01:53 AM Interpretation: Performing Lab:[facility] [address], Phone - [phone], Director - Maulik Notes/Report: Ferritin 110 15-150 ng/mL CBC With Differential/Platel et-104666 Reviewed date:01/14/2024 10:01:53 AM Interpretation: Performing Lab:[facility] [place], [address] [facility], Phone - [phone], Director - Maulik Notes/Report: WBC 8.7 3.4-10.8 x10E3/uL RBC 4.65 [...] Reviewed date:01/14/2024 10:01:53 AM Interpretation: Performing Lab:[facility], [address] [facility], Phone - [phone], Director - Maulik Notes/Report: Reason For Referral Reason Consult for Endometr iosis - any provider faxed No booking until jan need to call back end of September Diagnosis 1 Excessive and freque nt menstruation with irregular cycle (N92.1) Referral Organization [facility] Referring Provider First Name Cris Referring Provider Last Name Charlene Referring Provider Speciality Nurse Prac esperanzaioner Referred Provider Shayne Delacruz Referred Provider Specialty Family Centered Specialist General Notes Danni MONSALVE 08/09 05:44:49 PM >faxedGRICEL Brooke R 08/31/2023 03:52:42 PM > Called [phone] spoke to Nya right now They are [...] Referred Provider Specialty Gastroentero logy General Notes GRICELElizabethharshil Oconnell 07/2023 01:35:14 PM > faxed, GRICELElizabethharshil [...] with 3 months at a time Active Lia 3-0.03 MG Oral for 84 Days Not-Taking Phentermine HCl 15 MG 1 capsule Orally Once a day for 30 days 06/14/2024 Active Immunizations Vaccine Route Administration Date Status Comme nts *Gardasil 9-HPV9v Unknown 05/21/2014 Administered *Gardasil 9-HPV9v Unknown 07/20/2014 Administered *Gardasil 9-HPV9v Unknown 11/26/2014 Administered *Tdap Unknown 05/12/2010 Administered *Tdap Unknown 12/10/2021 Administered WXYXG-83-Wmompag Vaccine Unknown 08/29/2020 Administere d JCPAX-43-Foomlse Vaccine Unknown 09/26/2020 Administere d NNVQM-64-Jourarp Vaccine Unknown 05/01/2021 Administere d DTaP Unknown 2000 Administered DTaP Unknown 06/13/2001 Administered DTaP Unknown 03/31/2005 Administered YGgB-Kzi-UMR Unknown 2000 Administered QRnI-Arn-GBW Unknown 2000 Administered Hep A, ped/adol, 2 [...] point) Points 1 Interpretation Negative Section Notes: [facility] - mental health counselor [facility] - mental health counselor [facility] - mental health counselor [facility] - mental health counselor [facility] mental health counselor [facility] mental health counselor [facility] mental health counselor Problems Problem Type SNOMED Code ICD Code Onset Dates Problem Status W/U Status Risk Notes Problem Iron deficiency anemia (98017656) Iron deficiency anemia, unspecified (D50.9) Active confirmed Problem 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) Active confirmed Problem Polycystic ovarian syndrome (E28.2) Active confirmed Problem Vitamin D deficiency (64465133) Vitamin D deficiency, unspecified (E55.9) Active confirmed Problem Mild recurrent major depression (61835714) Major depressive disorder, recurrent, mild (F33.0) Active confirmed Problem Irregular sleep-wake pattern (919607049) Circadian rhythm sleep disorder, 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 Problem Intermenstrual bleeding - irregular (06871076) Excessive and frequent menstruation with irregular cycle (N92.1) Active confirmed Vital Signs Heart Rate 90 /min 12/15/2023 Temperature 97.0 degrees Fahrenheit 12/15/2023 Blood pressure diastolic 68 mm Hg 09/13/2023 Oximetry 99 % 12/15/2023 Height 65.5 in 12/15/2023 Blood pressure systolic 108 mm Hg 09/13/2023 Weight 133 lbs 12/15/2023 BMI 21.79 kg/m2 12/15/2023 Encounters Encounter Location Date Provider Diagnosis Rome Palm MD [address] [id number] 07/29/2023 Cris Chang Excessive and freque nt menstruation with irregular cycle N92.1 and Circadian rhythm sleep disorder, irregular sleep wake type G47.23 Rome Palm MD [address] [id number] 08/30/2023 Cris Chang Excessive and freque nt menstruation with irregular cycle N92.1 ; Circadian rhythm sleep disorder, irregular sleep wake type G47.23 ; Lower abdominal pain, unspecified R10.30 ; Acne vulgaris L70.0 and Other adrenocortical overactivity E27.0 Rome Palm MD [address] [id number] 09/13/2023 Cris Chang Excessive and freque nt menstruation with irregular cycle N92.1 ; Lower abdominal pain, unspecified R10.30 and Deep endometriosis of the uterus N80.02 Rome Palm MD [address] [id number] 09/22/2023 Cris Chang Excessive and freque nt menstruation with irregular cycle N92.1 ; Deep endometriosis of the uterus N80.02 ; Polycystic ovarian syndrome E28.2 ; Major depressive disorder, recurrent, mild F33.0 and Encounter for surveillance of contraceptive pills Z30.41 Rome Palm MD [address] [id number] 12/15/2023 Cris Chang Iron deficiency anem ia, unspecified D50.9 ; Deep endometriosis of the uterus N80.02 ; Polycystic ovarian syndrome E28.2 ; Body mass index [BMI] 21.0-21.9, adult Z68.21 and Acute vaginitis N76.0 Rome Palm MD [address] [id number] 07/26/2023 Cris Palm MD [address] [id number] 07/29/2023 Cris Chang Rome Palm MD [address] [id number] 08/10/2023 Cris Chang Other adrenocortical overactivity E27.0 Rome Palm MD [address] [id number] 08/16/2023 Cris Chang Lower abdominal pain , unspecified R10.30 Rome Palm MD [address] [id number] 08/25/2023 Cris Chang Rome Palm MD [address] [id number] 09/01/2023 Cris Chang Other adrenocortical overactivity E27.0 Rome Palm MD [address] [id number] 09/08/2023 Cris Palm MD [address] [id number] 09/15/2023 Cris Charlene Palm MD [address] [id number] 09/21/2023 Cris Chang Rome Palm MD [address] [id number] 09/22/2023 Cris Chang [facility] Palm MD [address] [id number] 09/30/2023 Cris Palm MD [address] [id number] 11/04/2023 Cris Chang Abnormal weight gain R63.5 Rome Palm MD [address] [id number] 11/29/2023 Cris Chang Encounter for surveillance of contraceptive pills Z30.41 Rome Palm MD [address] [id number] 12/02/2023 Rome Palm Abnormal weight gain R63.5 Rome Palm MD [facility] [address] [facility] [address] [place] [address] [id number] 12/03/2023 Cris Changharshil Palm MD PC [address] [place] [address] [place] [address] [id number] 01/06/2024 Cris Chang [facility] MD [facility] [address] [facility] [address] [place] [address] [id number] 01/06/2024 Cris Chang Polycystic ovarian syndrome E28.2 and Abnormal weight gain R63.5 Rome Palm MD [facility] [address] [facility] [address] [place] [address] [id number] 01/10/2024 Cris Chang Polycystic ovarian syndrome E28.2 [facility] Palm MD [facility] [address] [place] [address] [id number] 01/11/2024 Cris Chang Abnormal weight gain R63.5 Rome Palm MD [facility] [address] [place] [address] [place] [address] [id number] 04/17/2024 Cris Charlene Palm MD PC [address] [place] [address] [place] [address] [id number] 06/15/2024 Cris Chang [facility] MD PC [address] [place] [address] [place] [address] [id number] 08/16/2023 Cris Palm MD PC [address] [place] [address] [id number] 08/17/2023 Cris Chang [facility] MD [facility] [address] [place] [address] [place] [address] [id number] 08/19/2023 Cris Palm MD PC [address] [place] [address] [place] [address] [id number] 08/31/2023 Cris Chang [facility] MD [facility] [address] [place] [address] [place] [address] [id number] 09/01/2023 Cris Chang [facility] MD [facility] [address] [place] [address] [place] [address] [id number] 09/06/2023 Cris Paml MD PC [address] [place] [address] [place] [address] [id number] 09/08/2023 Crisleyda Hammondse Deep endometriosis o f the uterus N80.02 [facility] MD [facility] [address] [place] [address] [id number] 09/16/2023 Cirs Palm MD [address] [id number] 09/16/2023 Cris Palm MD [address] [id number] 09/16/2023 Cris Palm MD [address] [id number] 09/22/2023 Cris Palm MD [address] [id number] 09/27/2023 Cris Palm MD [address] [id number] 09/28/2023 Cris Chang Abnormal weight gain R63.5 Rome Palm MD [address] [id number] 10/05/2023 Cris Palm MD [address] [id number] 11/28/2023 Cris Chang Encounter for surveillance of contraceptive pills Z30.41 Rome Palm MD [address] [id number] 01/06/2024 Cris Palm MD [address] [id number] 01/17/2024 Cris Chang Assessments Encounter Date Diagnosis (ICD Code) Assessment Notes Treatment Notes Treatment Clinical Notes Section Notes 12/15/2023 Deep endometriosis of the uterus (ICD-10 - N80.02) Reviewed again the high suspicion of endometriosis and patient is planning to be seen by Endometriosis specialist in September. Also discussed with patient she may want to adjust her diet to have low gluten as gluten does seem to be an irritant and can exacerbate endometriosis symptoms. 12/02/2023 Abnormal weight gain (ICD-10 - R63.5) 11/29/2023 Encounter for surveillance of contraceptive pills (ICD-10 - Z30.41) 11/28/2023 Encounter for surveillance of contraceptive pills (ICD-10 - Z30.41) 11/04/2023 Abnormal weight gain (ICD-10 - R63.5) last filled per [facility]: 09/28/2023 09/28/2023 Abnormal weight gain (ICD-10 - R63.5) checked [facility], no previous scripts listed 01/11/2024 Abnormal weight gain (ICD-10 - R63.5) [facility] 11/04/2023 01/10/2024 Polycystic ovarian syndrome (ICD-10 - E28.2) 01/06/2024 Polycystic ovarian syndrome (ICD-10 - E28.2) 12/15/2023 Iron deficiency anemia, unspecified (ICD-10 - D50.9) Patient has had previous lab results with findings of elevated iron levels. Will obtain an updated iron and ferritin level for further evaluation 09/22/2023 Excessive and frequent menstruation with irregular [...] spotting while adjusting to this medication regimen 09/22/2023 Deep endometriosis of the uterus (ICD-10 [...] an irritant and can exacerbate endometriosis symptoms. 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 Patient admits to not having great sleep patterns due to college and the stress of her current medical symptoms. Discussed an underlying sleep study and patient would like to hold on moving forward with any additional testing until further evaluation by WIRELESS COMMUNICATIONS ENGINEER and endometriosis specialist is completed. Patient to continue working on better sleep hygiene practices and coping strategies to assist with underlying anxieties 08/16/2023 Lower abdominal pain, unspecified (ICD-10 - R10.30) 08/10/2023 Other adrenocortical overactivity (ICD-10 - E27.0) 07/29/2023 Circadian rhythm sleep disorder, irregular sleep [...] cycles and taking her SUSANNAH's as prescribed 08/30/2023 Excessive and frequent menstruation with irregular [...] well.Patient states she is also seeing her coat maker tomorrow for further evaluation for underlying symptoms and will update our office with any additional findings or concerns that her WIRELESS COMMUNICATIONS ENGINEER may have 08/30/2023 Lower abdominal pain, unspecified (ICD-10 - R10.30) See plan above 09/13/2023 Deep endometriosis of the uterus (ICD-10 [...] Inositol and Vitex for further hormonal support 12/15/2023 Polycystic ovarian syndrome (ICD-10 - E28.2) Previous MRI findings did suggest PCOS given increased ovarian follicles. Discussed that PCOS and endometriosis can be found together and the best management for PCOS is to manage insulin resistance. Patient to begin metformin and patient to continue working on weight loss to assist with managing symptoms of underlying PCOS 01/06/2024 Abnormal weight gain (ICD-10 - R63.5) last filled: 11/04/2023 09/22/2023 Polycystic ovarian syndrome (ICD-10 - E28.2) [...] hormonal imbalances, insulin resistance, and underlying PCOS 09/22/2023 Major depressive disorder, recurrent, mild [...] in network in this area for her 08/30/2023 Acne vulgaris (ICD-10 - L70.0) Discussed [...] Metro[employer]el to assist with symptoms of PCOS 12/15/2023 Body mass index [BMI] 21.0-21.9, adult [...] her SUSANNAH's to help manage her underlying. 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 [...] anxiety to further assist with weight loss Plan Of Treatment Pending Test Test Name Order Date QUANTIFERON TB GOLD 04/26/2023 Next Appt Details Provider Name:Cris Chang , 07/27/2024 03:30:00 PM, [address] [place] [address], [address], [place], [place], [phone], Insurance Providers Payer Name Payer Address Payer Phone Subscriber Number Group Number Insured Name Patient Relationship to Insured Coverage Start Date Coverage End Date HILDA NELSON [address] [place], [place] [address] [phone] [id number] Amalia Marquez Self - patient is the insured Medical (General) History Medical History History ICD Code Asthma (as a child - resolved) Surgical History Surgery Date(Month/Year) Hospitalization History Reason Date(Month/Year)
--- OUTSIDE RECORDS SUMMARY | 2024-06-23 12:42 | XMS_ITS ---
Author Organization Unknown Patient Care team information Name Category Status Period Participants - - Proposed period not known - - - Proposed period not known -
--- OUTSIDE RECORDS SUMMARY | 2024-06-23 12:42 | XMS_ITS ---
Author Organization Rome Palm MD Address [address] [place] [address] [phone] Care Team Providers Care Loom Cleaner Name Role Phone Cris Chang Primary Care Provider [phone] Allergies No Known Allergies REASON FOR VISIT refill Medications Medication SIG (Take, Route, Fr equency, Duration) Notes Start Date End Date Status Phentermine HCl 15 MG TAKE 1 CAPSULE BY MOUTH EVERY DAY FOR 30 DAYS for 30 04/17/2024 Active Encounters Encounter Location Date Provider Diagnosis Rome Palm MD [address] [place] [address] [place] [address] [id number] 04/17/2024 Cris Chang Plan Of Treatment Medication Medication Name Sig Start Date Stop Date Notes Phentermine HCl 15 MG TAKE 1 CAPSULE BY MOUTH EVERY DAY FOR 30 DAYS for 30 04/17/2024 Next Appt Details Provider Name:Cris Chang , 07/27/2024 03:30:00 PM, [address] [place] [address], [address], [phone], Progress Notes * Nicolas JAQUEZhanDOB:2000 (24 yo F)Acc No.[id number]:04/17/2024 Patient:?GISELE Amalia :2000???Age:24 Y???Sex:Female Address:[place], [address] * Refills? Refill Phentermine HCl Capsule, 15 [...] true * Date:? Generated for Josue chris/Amish/Ruchismitting on:?06/23/2024 12:42 PM EST
--- OUTSIDE RECORDS SUMMARY | 2024-06-23 12:42 | XMS_ITS ---
Author Organization Rome Palm MD Address [address] [place] [address] [phone] Care Team Providers Care Assembled Wood Products Repairer Name Role Phone Cris Chang Primary Care Provider REASON FOR VISIT annual Encounters Encounter Location Date Provider Diagnosis [facility] Palm MD [address] [place] [address] [place] [address] [phone] 05/11/2024 Cris Chang Plan Of Treatment Next Appt Details Provider Name:Cris Chang , 07/27/2024 03:30:00 PM, [address] [place] [address], [place] [address], [place], [place], [phone], Progress Notes * GISELE NicolashanDOB:2000 (24 yo F)Acc No.[id number]:05/11/2024 Patient:?Paul JAQUEZobhan Appointment Provider:?RENÉ Avila :2000???Age:24 Y???Sex:Female D ate:05/11/2024 Address:[address] [id number] Subjective: * Chief Complaints: * ???1. Annual. * Medical History:? Objective: * Vitals:? Past Vitals:* 12/15/2023 Temp:97.0F, HR:90/min, Wt:13 3lbs, BMI:21.79Index, Ht:65.5in, Oxygen sat %:99% * 09/22/2023 Temp:96.3F, HR:70/min, Wt:14 3.7lbs, BMI:23.55Index, Ht:65.5in, Oxygen sat %:98% * 09/13/2023 HR:81/min, BP:108/68mm Hg, W t:143lbs, BMI:23.43Index, Ht:65.5in, Oxygen sat %:98% Assessment: Plan: * Treatment: * Images: Billing Information: * Visit Code:? * Procedure Codes:? * Electronic signature of Susan Chang DNP on 06/23/2024 at 12:42 PM EST Sign off status: Pending * Appointment Provider:?RENÉ Avila Date:?05/11/2024 Generated for Josue chris/Amish/Will on:?06/23/2024 12:42 PM EST
== END 2024-06-23 13:38 | disposition home or self-care (01) ==
LOC: HO.HOP 12:11
PROVIDERS: Visit Provider Counselor Mental Health
DX: F98.8 Other specified behavioral and emotional disorders with onset usually occurring in childhood and adolescence (principal); F43.21 Adjustment disorder with depressed mood
CPT/HCPCS: 90834

== ENCOUNTER 2024-07-13 12:13 | Outpatient (AMB) | payer OTHER, SELFPAY ==
--- NOTE | 2024-07-13 12:00 | A.OFFWM_ITS ---
Intake Intake Visit Reasons: VIDEO OP Therapy Behavioral Health Assessment Weight Management Therapy Therapy Notes Details Subjective: The patient reports struggling with her health due to an endometriosis flare-up that began on June 23. She is experiencing constipation and qpqpoyfx-[id number] pelvic pain. She notes feeling down, as she hasn't experienced symptoms this intense in several months. The patient shared that at times, she uses food to cope with her emotions. She expressed concern about her weight gain related to her illness (currently 132 lbs) and how it is impacting her emotionally. Objective: The patient presents for a follow-up visit via Telehealth. We processed her feelings of insecurity, discussed her support system, and ex plored what she feels she needs in order to feel more supported. The patient also reflected on recent triggers and her responses to them. We used Acceptance and Commitment Therapy (ACT) and Cognitive Processing Therapy (CPT) approaches to address the patient's thoughts and feelings, focusing on what is under her control versus what is outside of her control. Assessment/Response: * Mental Status: The patient is alert and oriented, presenting with a mildly dysphoric mood. She demonstrates good insight into her current challenges and coping mechanisms. * Risk Reported/Identified: No immediate safety risks identified at this time. The patient was engaged throughout the session, and we worked on strategies to manage her emotional responses and triggers in a healthy way. Assessment & Plan Assessment & Plan (1) ADD (attention deficit disorder): Code(s): F98.8 - Other specified behavioral and emotional disorders with onset usually occurring in childhood and adolescence Qualifiers: Attention deficit-hyperactivity disorder type: predominantly inattentive (2) Adjustment disorder with depressed mood: Code(s): F43.21 - Adjustment disorder with depressed mood Plan F/up in 2-3 weeks. Next juan: 08/03/2024 at 12pm, Telehealth. Telehealth Telehealth Telehealth Platform: [employer] Location of provider rendering services: other (Home office, [place], [place].) Location of patient: address on file Patient Identification confirmed using: Name, : Yes Telehealth method: video Patient verbally consented to treatment: Yes Patient verbally consented to billing insurance company: Yes Patient informed of any privacy concerns related to visit: Yes Minutes spent on Phone/Video with Pt.: 60 Coding Level of Care Code Established Pt Tele Psytx >53 mins (14410) Patient Type Established Diagnoses ADD (attention deficit disorder) F98.8 Attention deficit-hyperactivity disorder type: predominantly inattentive Adjustment disorder with depressed mood F43.21 Time Spent (min) 60
--- OUTSIDE RECORDS SUMMARY | 2024-07-13 14:46 | XMS_ITS ---
Author Organization Rome Palm MD Address [address] [place] [phone] Care Team Providers Care Deputy District Customs Director Name Role Phone Cris Chang Primary Care Provider REASON FOR VISIT annual Encounters Encounter Location Date Provider Diagnosis Rome Palm MD [address] [place] [address] [place] [phone] 05/11/2024 Cris Chang Plan Of Treatment Next Appt Details Provider Name:Cris Chang , 07/27/2024 03:30:00 PM, [address] [place] [address], [place] [address], [place], [place], [phone], Progress Notes * GISELE NicolashanDOB:2000 (24 yo F)Acc No.[id number]:05/11/2024 Patient:?Paul JAQUEZobhan Appointment Provider:?RENÉ Avila :2000???Age:24 Y???Sex:Female D ate:05/11/2024 Address:[address] [facility] [id number] Subjective: * Chief Complaints: * ???1. Annual. [...] Electronic signature of Susan Chang DNP on 07/13/2024 at 02:46 PM EST Sign off status: Pending * Appointment Provider:?RENÉ Avila Date:?05/11/2024 Generated for Josue chris/Amish/Will on:?07/13/2024 02:46 PM EST
--- OUTSIDE RECORDS SUMMARY | 2024-07-13 14:47 | XMS_ITS ---
Author Organization Rome Palm MD Address [address] [place] [phone] Care Team Providers Care Production Corrugator Name Role Phone Cris Chang Primary Care Provider [phone] Allergies No Known Allergies REASON FOR VISIT refill Medications Medication SIG (Take, Route, Fr equency, Duration) Notes Start Date End Date Status Phentermine HCl 15 MG TAKE 1 CAPSULE BY MOUTH EVERY DAY FOR 30 DAYS for 30 04/17/2024 Active Encounters Encounter Location Date Provider Diagnosis Rome Palm MD [address] [place] [address] [place] [phone] 04/17/2024 Cris Chang Plan Of Treatment Medication Medication Name Sig Start Date Stop Date Notes Phentermine HCl 15 MG TAKE 1 CAPSULE BY MOUTH EVERY DAY FOR 30 DAYS for 30 04/17/2024 Next Appt Details Provider Name:Cris Chang , 07/27/2024 03:30:00 PM, [address] [place] [address], [address], [phone], Progress Notes * Nicolas JAQUEZhanDOB:2000 (24 yo F)Acc No.[id number]:04/17/2024 Patient:?GISELE Amalia :2000???Age:24 Y???Sex:Female Address:[place] [address] [place], [address] * Refills? Refill Phentermine HCl Capsule, 15 [...] true * Date:? Generated for Josue chris/Amish/Ruchismitting on:?07/13/2024 02:46 PM EST
== END 2024-07-13 13:12 | disposition home or self-care (01) ==
LOC: HO.HOP 12:13
PROVIDERS: Visit Provider Counselor Mental Health
DX: F98.8 Other specified behavioral and emotional disorders with onset usually occurring in childhood and adolescence (principal); F43.21 Adjustment disorder with depressed mood
CPT/HCPCS: 90837

== ENCOUNTER → 2024-07-13 12:13 | Outpatient (BNVA) | payer OTHER, SELFPAY | PROVIDERS: Visit Provider Counselor Mental Health ==

== ENCOUNTER 2024-08-03 12:14 | Outpatient (AMB) | payer OTHER, SELFPAY ==
--- NOTE | 2024-08-03 12:00 | A.OFFWM_ITS ---
Intake Intake Visit Reasons: VIDEO OP Therapy Behavioral Health Assessment Weight Management Therapy Therapy Notes Details Subjective: The patient reports continuing to struggle with endometriosis-related issues. She will soon start a new medication to help manage her symptoms until she undergoes her procedure. After a recent visit to her PCP, the patient shifted her mindset towards a more accepting and realistic approach to her condition. Additionally, she shared a recent conflict with her boyfriend that occurred while she was not feeling at her best. The patient also made the decision to move by the next semester to prioritize herself and secure a space of her own. Objective: The patient presents for a follow-up visit via Telehealth. Explored the impact of her physical health on her emotional well-being and discussed recent challenges, including the conflict with her boyfriend. The patient showed improved insight into her emotional responses, especially after shifting her mindset following her PCP appointment. Interventions used during the session included: Explored cognitive distortions related to her stress and emotional responses, reframing negative thought patterns to help her develop more balanced perspectives. Focused on helping the patient embrace difficult emotions related to her condition and current life circumstances while identifying values and actions that align with her priorities (e.g., moving and prioritizing herself). Practiced mindfulness exercises to help the patient stay present, manage stress, and reduce emotional reactivity, particularly in the context of conflicts and health challenges. Assessment/Response: * Mental status: The patient appeared alert and oriented with a calm demeanor. She exhibited an overall mood of mild distress but demonstrated positive engagement and insight into her emotions and challenges. * Risk reported/identified: No immediate safety risks identified. The patient has appropriate coping mechanisms in place and is seeking support as needed. Assessment & Plan Assessment & Plan (1) ADD (attention deficit disorder): Code(s): F98.8 - Other specified behavioral and emotional disorders with onset usually occurring in childhood and adolescence Qualifiers: Attention deficit-hyperactivity disorder type: predominantly inattentive (2) Adjustment disorder with depressed mood: Code(s): F43.21 - Adjustment disorder with depressed mood Plan Follow-up in 2 weeks. Next appointment scheduled for 08/17/24 at 12:00 PM via Telehealth Telehealth Telehealth Telehealth [facility]: [facility] Location of provider rendering services: other (Home office, [place], [place].) Location of patient: address on file Patient Identification confirmed using: Name, : Yes Telehealth method: video Patient verbally consented to treatment: Yes Patient verbally consented to billing insurance company: Yes Patient informed of any privacy concerns related to visit: Yes Minutes spent on Phone/Video with Pt.: 60 Coding Level of Care Code Established Pt Tele Psytx >53 mins (70886) Patient Type Established Diagnoses ADD (attention deficit disorder) F98.8 Attention deficit-hyperactivity disorder type: predominantly inattentive Adjustment disorder with depressed mood F43.21 Time Spent (min) 60
--- OUTSIDE RECORDS SUMMARY | 2024-08-03 15:32 | XMS_ITS ---
Author Organization Rome Palm MD Address [address] [phone] Care Team Providers Care Milk Pickup Driver Name Role Phone Cris Chang Primary Care Provider Allergies No Known Allergies REASON FOR VISIT annual Medications Medication SIG (Take, Route, Frequency, Duration) Notes Start Date End Date Status Lia 3-0.03 MG Oral for 84 Days Not-Taking Phentermine HCl 15 MG 1 capsule Orally Once a day for 30 days 07/19/2024 08/13/2024 Active Junel .5 1.5-30 MG-MCG 1 tablet Orally Once a day for 21 days Dispense 3 months at a time 07/27/2024 Active metFORMIN HCl 500 MG 1 tablet with a meal Orally twice a day for 90 days Active Social History Tobacco Use: Social History Observation [...] point) Points 1 Interpretation Negative 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 Problems Problem Type SNOMED Code ICD Code Onset Dates Problem Status W/U Status Risk Notes Problem Deep endometrios is of the uterus (N80.02) Active confirmed Vital Signs Temperature 96.1 degrees Fahrenheit 07/28/19 25 Blood pressure systolic 112 mm Hg 07/28/19 25 Blood pressure diastolic 66 mm Hg 025 Heart Rate 93 /min 07/27/2024 Height 65.5 in 07/27/2024 Weight 135 lbs 07/27/2024 BMI 22.12 kg/m2 07/27/2024 Oximetry 98 % 07/27/2024 Encounters Encounter Location Date Provider Diagnosis Rome Palm MD [address] [phone] 07/27/2024 Cris Chang Encounter for genera l adult medical examination without abnormal findings Z00.00 ; Encounter for screening for cardiovascular disorders Z13.6 ; Encounter for immunization Z23 ; Encounter for antibody response examination Z01.84 ; Encounter for screening for other viral diseases Z11.59 ; Vitamin D deficiency, unspecified E55.9 ; Iron deficiency anemia, unspecified D50.9 ; Deep endometriosis of the uterus N80.02 ; Polycystic ovarian syndrome E28.2 ; Encounter for screening for malignant neoplasm of cervix Z12.4 and Encounter for screening examination for other mental health and behavioral disorders Z13.39 Assessments Encounter Date Diagnosis (ICD Code) Assessment Notes Treatment Notes Treatment Clinical Notes Section Notes 07/27/2024 Encounter for general adult medical examination without abnormal findings (ICD-10 - Z00.00) General healthcare up-to-date. Will obtain updated routine labs.Plan will be for annual in 1 year 07/27/2024 Encounter for screening for cardiovascular disorders (ICD-10 - Z13.6) Blood pressure stable. Will check for comorbidity of hyperlipidemia and hyperglycemia to further assess risk 07/27/2024 Encounter for immunization (ICD-10 - Z23) Vaccines up-to-date 07/27/2024 Encounter for antibody response examination (ICD-10 - Z01.84) Titers have been checked in the past and there is immunity to rubeola 07/27/2024 Encounter for screening for other viral diseases (ICD-10 - Z11.59) Will screen for hepatitis C as per general recommendation 07/27/2024 Vitamin D deficiency, unspecified (ICD-10 - E55.9) Will clevel to verify that there is no deficiency 07/27/2024 Iron deficiency anemia, unspecified (ICD-10 - D50.9) Patient has had previous low iron levels which I suspect is related to underlying endometriosis. Will obtain an updated iron and ferritin level to ensure improvement 07/27/2024 Deep endometriosis of the uterus (ICD-10 - N80.02) Discussed with patient again the high suspicion of endometriosis as the underlying cause for her irregular menstrual cycles as well as increased associated pain, bloating, and weight gain during her menstrual cycles. Patient is scheduled in October to have exploratory surgery for concerns of deep endometriosis. Encouraged patient to begin 600 mg Motrin every 6 hours when menstrual pain begins to see if this can further manage not only her discomfort but also her menstrual flow. Also discussed with patient her increased symptoms and will adjust her SUSANNAH's to increase her estrogen and progesterone amounts while still continuously cycling to further manage her symptoms while she waits for her surgery date 07/27/2024 Polycystic ovarian syndrome (ICD-10 - E28.2) Previous MRI findings did suggest PCOS given increased ovarian follicles. Discussed that PCOS and endometriosis can be found together and the best management for PCOS is to manage insulin resistance. Patient to remain on current medication regimen and SUSANNAH's as well as follow-up with endometriosis specialist for her surgery in 07/27/2024 Encounter for screening for malignant neoplasm of cervix (ICD-10 - Z12.4) Patient is followed by [facility] APPRENTICE and did complete an updated Pap smear in 2023. Patient aware that Pap smears are completed every 3 years to ensure she remains up-to-date with cervical cancer screenings 07/27/2024 Encounter for screening examination for other mental health and behavioral disorders (ICD-10 - Z13.39) PHQ score reviewed no further interventions warranted at this time 07/27/2024 Other Plan Of Treatment Medication Medication Name Sig Start Date Stop Date Notes 1.5-30 MG-MCG 1 tablet Orally Once a day for 21 days 07/27/2024 Dispense 3 months at a time Norgestimate-Eth Estradiol 0.25-35 MG-MCG 1 tablet Orally Once a day Please supply pt wit h 3 months at a time Pending Test Test Name Order Date Iron and TIBC-[id number] 07/27/2024 Hemoglobin L2f-[id number] 07/27/2024 Urinalysis, Complete-[id number] 07/27/2024 Ferritin-[id number] 07/27/2024 CBC With Differential/Platelet-[id number] Vitamin D, 90-Nzsgiha-[id number] 07/27/2024 Comp. Metabolic Panel ([id number] 2024 LP+Non-HDL Cholesterol-[id number] 07/27/2024 Anti-Mullerian Hormone (AMH)-[id number] 07/09 Next Appt Details Follow Up: f/u menstrual cyc le in 4 months, AWV in 1 year, Reason: Provider Name:Cris Chang , 11/23/2024 02:30:00 PM, [address] [place] [address], [address], [phone], Provider Name:Cris Chang , 08/02/2025 03:30:00 PM, [address] [place] [address], [address], [phone], Progress Notes * GISELE NicolashanDOB:2000 (24 yo F)Acc No.[id number]:07/27/2024 Progress Notes Patient:?Paul JAQUEZobhan Appointment Provider:?RENÉ Avila :2000???Age:24 Y???Sex:Female S upervising Provider:Rome Palm MD Date:07/27/2024 [id number] Subjective: * Chief Complaints: * ???1. Annual. * HPI: ???Annual:?Pt presents today for their annual visit. She states she is up-to-date with her dental cleaning and vision exams. ???Weight History::? Patient had previously been working with a dietitian, virtually, but could not continues to make dietary changes on her own as she felt as though her progress with the dietitian went as far as it could to assist with weight loss. She continues to use phentermine as well given her fluctuation of 10 pounds. She does notice that when her menstrual cycles are a bit irregular she does retain more water and gains more weight. 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 Oliveira (her new BOARD LINING MACHINE OPERATOR) who confirmed that her symptoms seem consistent with Endometriosis with PCOS given previous MRI findings of increased ovarian follicles. She is up-to-date with her pap smear as this was completed in 2023. She is pending apt with Dr. Franz's group for underlying concerns of endometriosis, and she states she is scheduled for October 19, 2024 for surgery to manage her Endometriosis. She continues to take her SUSANNAH's (continuous cycling) but is finding that her abdominal cramping and bloating has worsened over the past few menstrual cycles. She is experiencing weight gain and increased abdominal pain and cramping over the past few months despite SUSANNAH use. ???Constitutional:?Patient was recently evaluated by [place]astro[place] (Dr. Clemente) due to abdominal bloating and constipation. She had a recent flare of abdominal bloating and bowel changes when she was just seen by this GI provider a few weeks ago. He suggested a change in her COCs to further manage periods and to assist with menstrual cycles and underlying Endometriosis symptoms. ???Depression Screening:?PHQ-2 (2015 Edition)?Little interest or pleasure in doing things??Not at all ?Feeling down, depressed, or hopeless??Not at all ?Total Score?0 * ROS:?General/Constitutional:?Denies?Change in appetite.?Denies?Chills.?Denies?Fever.?Denies?Sleep disturbance.?Admits?Weight gain,?see HPI.?Respiratory:?Denies?Cough.?Denies?Shortness of breath.?Denies?Shortness of breath with exertion.?Denies?Sputum production.?Denies?Wheezing.?Cardiovascular:?Denies?Chest pain.?Denies?Chest pain with exertion.?Denies?Claudication.?Denies?Dizziness.?Denies?Dyspnea on exertion.?Denies?Irregular heartbeat.?Denies?Palpitations.?Denies?Shortness of breath.?Denies?Weight gain.?Gastrointestinal:?Denies?Dark Stools.?Admits?Abdominal pain,?see HPI.?Denies?Blood in stool.?Denies?Constipation.?Denies?Decreased appetite.?Denies?Heartburn.?Denies?Nausea.?Denies?Rectal bleeding.?Hematology:?Denies?Bleeding problems.?Denies?Easy bruising.?Denies?Prolonged bleeding.?Denies?Swollen glands.?Genitourinary:?Denies?Nocturia.?Denies?Blood in urine.?Denies?Difficulty urinating.?Denies?Frequent urination.? * Medical History:?Asthma (as a child - resolved). * Surgical History:?Denies Pas t Surgical History. * Ocular Surgical History:? Ocular Surgical History revi ewed with the patient. * Hospitalization/Major Diagno stic Procedure:?Denies Past Hospitalization. * Family History:?Father: dina chua.?Mother: alive.?Paternal Grand Father: , unknown cancer.?Paternal Grand Mother: alive.?Maternal Grand Father: alive.?Maternal Grand Mother: alive.?1 brother(s) , 1 sister(s) - healthy. .? * Social History:?Tobacco Use:?Tobacco Use/Smoking?Are you a?nonsmoker ???Drugs/Alcohol:?Drugs?Have you used drugs other than those for medical reasons in the past 12 months??No ?Alcohol Screen (Audit-C)?Did you have a drink containing alcohol in the past year??Yes ?How often did you have a drink containing alcohol in the past year??Monthly or less (1 point) ?How many drinks did you have on a typical day when you were drinking in the past year??1 or 2 drinks (0 point) ?How often did you have 6 or more drinks on one occasion in the past year??Never (0 point) ?Points?1 ?Interpretation?Negative ?Caffeine?Intake:?1-2 cups per day ?Do you smoke marijuana?: Admits occasionally. ?Do you drink alcohol?: Yes, Socially. ???Miscellaneous:?Exercise: yes, Patient exercises, three times a week, walking, weight lifting. 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 * Medications:?Taking Norgesti mate-Eth Estradiol 0.25-35 MG-MCG Tablet 1 tablet Orally Once a day , Notes to Pharmacist: Please supply pt with 3 months at a time, Taking metFORMIN HCl 500 MG Tablet 1 tablet with a meal Orally twice a day , Taking Phentermine HCl 15 MG Capsule 1 capsule Orally Once a day , stop date 08/13/2024, Not-Taking/PRN Lia 3-0.03 MG Tablet Oral , Medication List reviewed and reconciled with the patient * Allergies:?N.K.D.A. Objective: * Vitals:?Temp:96.1F, HR:93/mi n, BP:112/66mm Hg, Wt:135lbs, BMI:22.12Index, Ht:65.5in, Oxygen sat %:98%. Past Vitals:* 12/15/2023 Temp:97.0F, HR:90/min, Wt:13 3lbs, BMI:21.79Index, Ht:65.5in, Oxygen sat %:99% * 09/22/2023 Temp:96.3F, HR:70/min, Wt:14 3.7lbs, BMI:23.55Index, Ht:65.5in, Oxygen sat %:98% * 09/13/2023 HR:81/min, BP:108/68mm Hg, W t:143lbs, BMI:23.43Index, Ht:65.5in, Oxygen sat %:98% * Examination: ???General Examination: ?GENERAL APPEARANCE:?Age appropriate, in no acute distress, well developed, well nourished.?HEAD:?normocephalic, atraumatic.?EYES:?extraocular movement intact (EOMI), sclera non-icteric.?NECK/THYROID:?neck supple, full range of motion, no thyromegaly, thyroid normal.?LYMPH NODES:?no axillary, supraclavicular or inguinal adenopathy.?HEART:?regular rate and rhythm, S1, S2 normal.?LUNGS:?clear to auscultation bilaterally.?ABDOMEN:?no hepatosplenomegaly, soft, nontender, nondistended.?BACK:?no kyphosis, no scoliosis.?MUSCULOSKELETAL:?full range of motion of the hip, full range of motion of the knee.?EXTREMITIES:?no clubbing, cyanosis, or edema.?NEUROLOGIC:?nonfocal, alert and oriented, gait normal, motor strength normal upper and lower extremities, no tremor.?PSYCH:?alert, oriented, good eye contact.? Assessment: * Assessment: 1.?Encounter for general cheryl lt medical examination without abnormal findings - Z00.00 (Primary)???2.?Encounter for screening for cardiovascular disorders - Z13.6???3.?Encounter for immunization - Z23???4.?Encounter for antibody response examination - Z01.84???5.?Encounter for screening for other viral diseases - Z11.59???6.?Vitamin D deficiency, unspecified - E55.9???7.?Iron deficiency anemia, unspecified - D50.9???8.?Deep endometriosis of the uterus - N80.02???9.?Polycystic ovarian syndrome - E28.2???10.?Encounter for screening for malignant neoplasm of cervix - Z12.4???11.?Encounter for screening examination for other mental health and behavioral disorders - Z13.39??? Plan: * Treatment: 2.?Encounter for screening f or cardiovascular disorders?LAB: Urinalysis, Complete-[id number] ?LAB: CBC With Differential/Platelet-[id number] ?LAB: Comp. Metabolic Panel [id number] ?LAB: LP+Non-HDL Cholesterol-[id number] Clinical Notes: Blood pressure stable. Will check for comorbidity of hyperlipidemia and hyperglycemia to further assess risk?? 3.?Encounter for immunizatio n? Clinical Notes: Vaccines up-to-date?? 4.?Encounter for antibody re sponse examination? Clinical Notes: Titers have been checked in the past and there is immunity to rubeola?? 5.?Encounter for screening f or other viral diseases? Clinical Notes: Will screen for hepatitis C as per general recommendation?? 6.?Vitamin D deficiency, uns pecified?LAB: Vitamin D, 79-Nwxlncd-500010 Clinical Notes: Will clevel to verify that there is no deficiency?? 7.?Iron deficiency anemia, u nspecified?LAB: Iron and TIBC-[id number] ?LAB: Ferritin-925758 Clinical Notes: Patient has had previous low iron levels which I suspect is related to underlying endometriosis. Will obtain an updated iron and ferritin level to ensure improvement?? 8.?Deep endometriosis of the uterus? Stop Norgestimate-Eth Estradiol Tablet, 0.25-35 MG-MCG, 1 tablet, Orally, Once a day, Notes to Pharmacist: Please supply pt with 3 months at a time;?Start 1.5/30 Tablet, 1.5-30 MG-MCG, 1 tablet, Orally, Once a day, 21 days, 21, Refills 3, Notes to Pharmacist: Dispense 3 months at a time.?? Clinical Notes: Discussed with patient again the high suspicion of endometriosis as the underlying cause for her irregular menstrual cycles as well as increased associated pain, bloating, and weight gain during her menstrual cycles. Patient is scheduled in October to have exploratory surgery for concerns of deep endometriosis. Encouraged patient to begin 600 mg Motrin every 6 hours when menstrual pain begins to see if this can further manage not only her discomfort but also her menstrual flow. Also discussed with patient her increased symptoms and will adjust her SUSANNAH's to increase her estrogen and progesterone amounts while still continuously cycling to further manage her symptoms while she waits for her surgery date?? 9.?Polycystic ovarian syndro me?LAB: Hemoglobin O0z-[id number] ?LAB: Anti-Mullerian Hormone (AMH)-199818 Clinical Notes: Previous MRI findings did suggest PCOS given increased ovarian follicles. Discussed that PCOS and endometriosis can be found together and the best management for PCOS is to manage insulin resistance. Patient to remain on current medication regimen and SUSANNAH's as well as follow-up with endometriosis specialist for her surgery in October?? 10.?Encounter for screening for malignant neoplasm of cervix? Clinical Notes: Patient is followed by [facility] FIXER APPRENTICE and did complete an updated Pap smear in 2023. Patient aware that Pap smears are completed every 3 years to ensure she remains up-to-date with cervical cancer screenings?? 11.?Encounter for screening examination for other mental health and behavioral disorders? Clinical Notes: PHQ score reviewed no further interventions warranted at this time?? * Procedure Codes:?18727 P/M C OUNSEL, INDIV 15 MIN * Follow Up:?f/u menstrual cyc le in 4 months, AWV in 1 year Care Plan: * Problems:? * Images: Billing Information: * Visit Code:? 27096 Preventive Care Est Pt. Age 18-39. * Procedure Codes:? 37237 P/M POLE SETTER, INDIV 15 MIN. * Electronic signature of Melissa Palm MD on 08/03/2024 at 03:31 PM EDT Sign off status: Pending * Appointment Provider:?RENÉ Avila Date:?07/27/2024 Generated for Josue chris/Amish/eTransmitting on:?08/03/2024 03:31 PM EDT History and Physical Notes * HPI (History of Present Illness) Category Sub-Category Detail Notes Category Not es Depression Screening PHQ-2 (2015 Edition) Little interest or pleasure in doing things?: Not at all Feeling down, depressed, or hopeless?: N ot at all Total Score: 0 Examination Category Sub-Category Detail Notes Category Not es General Examination GENERAL APPEARANCE: Age appr opriate, in no acute distress, well developed, well nourished HEAD: normocephalic, atrau matic EYES: extraocular movement intact (EOMI), sclera non-icteric NECK/THYROID: neck supple, full ra nge of motion, no thyromegaly, thyroid normal HEART: regular rate and rhy thm, S1, S2 normal LUNGS: clear to auscultatio n bilaterally ABDOMEN: no hepatosplenomegal y, soft, nontender, nondistended NEUROLOGIC: nonfocal, alert and oriented, gait normal, motor strength normal upper and lower extremities, no tremor EXTREMITIES: no clubbing, cyanosi s, or edema BACK: no kyphosis, no scol iosis MUSCULOSKELETAL: full range of motion of the hip, full range of motion of the knee LYMPH NODES: no axillary, supracl avicular or inguinal adenopathy PSYCH: alert, oriented, goo d eye contact
--- OUTSIDE RECORDS SUMMARY | 2024-08-03 15:32 | XMS_ITS ---
Author Organization Rome Palm MD Address [address] [place] [phone] Care Team Providers Care Obiee Obia Solution Architect Name Role Phone Cris Chang Primary Care Provider [phone] Allergies No Known Allergies REASON FOR VISIT REFILL Medications Medication SIG (Take, Route, Fr equency, Duration) Notes Start Date End Date Status Phentermine HCl 15 MG 1 capsule Orally O nce a day for 30 days 06/14/2024 Active Encounters Encounter Location Date Provider Diagnosis Rome Palm MD [address] [place] [phone] 06/15/2024 Cris Chang Plan Of Treatment Medication Medication Name Sig Start Date Stop Date Notes Phentermine HCl 15 MG 1 capsule Orally O nce a day for 30 days 06/14/2024 Next Appt Details Provider Name:Cris Chang , 11/23/2024 02:30:00 PM, [address] [place] [address], [phone], Provider Name:Cris Chang , 08/02/2025 03:30:00 PM, [address] [place] [address], [phone], Progress Notes * Nicolas JAQUEZhanDOB:2000 (24 yo F)Acc No.[id number]:06/15/2024 Patient:?GISELEPaulAmalia :2000???Age:24 Y???Sex:Female [address], [address] * Refills? Refill Phentermine HCl Capsule, 15 [...] * true * Date:? Generated for Josue chris/Amish/Will on:?08/03/2024 03:31 PM EDT
--- OUTSIDE RECORDS SUMMARY | 2024-08-03 15:32 | XMS_ITS ---
Author Organization Rome Palm MD Address [address] [place] [phone] Care Team Providers Care Commercial Litigation Attorney Name Role Phone Cris Chang Primary Care Provider [phone] REASON FOR VISIT refill Medications Medication SIG (Take, Route, Fr equency, Duration) Notes Start Date End Date Status Phentermine HCl 15 MG 1 capsule Orally O nce a day for 30 days 07/19/2024 08/13/2024 Active Encounters Encounter Location Date Provider Diagnosis Rome Palm MD [address] [place] [address] [place] [phone] 07/14/2024 Cris Chang Plan Of Treatment Medication Medication Name Sig Start Date Stop Date Notes Phentermine HCl 15 MG 1 capsule Orally O nce a day for 30 days 07/19/2024 08/13/2024 Next Appt Details Provider Name:Cris Chang , 11/23/2024 02:30:00 PM, [address] [place] [address], [phone], Provider Name:Cris Chang , 08/02/2025 03:30:00 PM, [address] [place] [address], [phone], Progress Notes * Nicolas JAQUEZhanDOB:2000 (24 yo F)Acc No.[id number]:07/14/2024 Patient:?Paul JAQUEZobhan :2000???Age:24 Y???Sex:Female [address] [place], [address] * Refills? Refill Phentermine HCl Capsule, 15 MG, Orally, 30 Capsule, 1 capsule, Once a day, 30 days, Refills=0 Subjective: * Chief Complaints: * ???Refill * Medical History:? * Surgical History:? * Hospitalization/Major Diagno stic Procedure:? * Medications:? * Allergies:?no[Allergies Veri fied] Objective: * Vitals:? Past Vitals:* 12/15/2023 Temp:97.0F, HR:90/min, Wt:13 3lbs, BMI:21.79Index, Ht:65.5in, Oxygen sat %:99% * 09/22/2023 Temp:96.3F, HR:70/min, Wt:14 3.7lbs, BMI:23.55Index, Ht:65.5in, Oxygen sat %:98% * 09/13/2023 HR:81/min, BP:108/68mm Hg, W t:143lbs, BMI:23.43Index, Ht:65.5in, Oxygen sat %:98% * Physical Examination:? Assessment: Plan: * Treatment: * Procedure Codes:? * true * Date:? Generated for Josue chris/Amish/Will on:?08/03/2024 03:32 PM EDT
--- OUTSIDE RECORDS SUMMARY | 2024-08-03 15:32 | XMS_ITS ---
Author Name [facility] Organization Unknown History of Medication Use Medication Directions Dispensed Refills Start Date End Date Stat us inositol Oral, 0 Refill(s) 11/02/2023 Or dered Vitex Vitex, 0 Refill(s) 11/02/2023 Or dered phentermine 15 mg oral capsule 1 cap, Oral, Daily, 0 Refill(s) 11/02/2023 Ordered metFORMIN 500 mg oral tablet 1 tab, Oral, BID, 0 Refill(s) 11/02/2023 Ordered norgestimate-ethinyl estradiol 0.25 mg-35 mcg oral tablet 1 tab, Oral, Daily, 0 Refill(s) 11/02/2023 Ordered Problems Problem Status Onset Date Problem Type Date of Resoluti on Source Constipation (disorder) active ProblemAct [facility] Abdominal bloating (finding) active ProblemAct [facility] Endometriosis (disorder) active ProblemAct [facility] Polycystic ovary syndrome active ProblemAct [facility] Encounters Encounter Type Encounter Reason Primary Diagnosis Location Date Ambulatory 6 MONTH FOLLOW UP OMER [facility] 07/12/2024 Ambulatory DIARRHEA/ CONSTIPATION, BLOATING NO APPETITE FATIGUE [facility] 11/02/2023 Care Team Organization Name Specialty Phone Email Start Date End Da willie [facility] 11/02/2023 [facility] Cris Chang Primary Care 11/02/2023 [facility] 09/20/2023
== END 2024-08-03 13:12 | disposition home or self-care (01) ==
LOC: HO.HOP 12:14
PROVIDERS: Visit Provider Counselor Mental Health
DX: F98.8 Other specified behavioral and emotional disorders with onset usually occurring in childhood and adolescence (principal); F43.21 Adjustment disorder with depressed mood
CPT/HCPCS: 90837

== ENCOUNTER 2024-08-17 12:00 | Outpatient (AMB) | payer OTHER, SELFPAY ==
--- NOTE | 2024-08-17 12:05 | A.OFFWM_ITS ---
Intake Intake Visit Reasons: VIDEO OP Therapy Behavioral Health Assessment Weight Management Therapy Therapy Notes Details Subjective: PT reports she is starting to feel better this week as she started a new pill 2 weeks ago. However as side effects she has been more irritable and snappy. Also her sleep has been bad, getting 8 hr but disrupted and waking up multiple times at night. Objective: PT presents for a f/up visit via Telehealth. . Provided supportive counseling to explore the patient's recent medication changes and the associated emotional and physical side effects, such as increased irritability and disrupted sleep. Normalized her experience with adjusting to new medications and discussed the typical timelines for side effects. Utilized cognitive-behavioral techniques to help the patient identify triggers for irritability and practice more adaptive coping strategies, including deep breathing, taking time-outs, and journaling. Reviewed basic sleep hygiene strategies to address disrupted sleep, incorporating relaxation and meditation techniques. Introduced a meditation practice and recommended a suitable juan. Encouraged the patient to maintain ongoing communication with her prescriber regarding medication side effects and overall symptom management. Assessment/Response: * Mental status: Sensitive, mood changes. Alert, oriented X3, cooperative and engaged in session despite functioning challenges. * Risk reported/identified: None. Assessment & Plan Assessment & Plan (1) ADD (attention deficit disorder): Code(s): F98.8 - Other specified behavioral and emotional disorders with onset usually occurring in childhood and adolescence Qualifiers: Attention deficit-hyperactivity disorder type: predominantly inattentive (2) Adjustment disorder with depressed mood: Code(s): F43.21 - Adjustment disorder with depressed mood Plan Follow-up in 1 week. Next appointment: 08/24/2024 Telehealth Telehealth Telehealth Platform: [employer] Location of provider rendering services: other ([facility], [place], [place].) Location of patient: address on file Patient Identification confirmed using: Name, : Yes Telehealth method: video Patient verbally consented to treatment: Yes Patient verbally consented to billing insurance company: Yes Patient informed of any privacy concerns related to visit: Yes Minutes spent on Phone/Video with Pt.: 60 Coding Level of Care Code Established Pt Tele Psytx >53 mins (09106) Patient Type Established Diagnoses ADD (attention deficit disorder) F98.8 Attention deficit-hyperactivity disorder type: predominantly inattentive Adjustment disorder with depressed mood F43.21 Time Spent (min) 55
--- OUTSIDE RECORDS SUMMARY | 2024-08-17 14:45 | XMS_ITS | Patient Health Record ---
Author Organization Rome Palm MD Address [address] [place] [phone] Care Team Providers Care Heel Attacher Name Role Phone Cris Chang Primary Care Provider Rome Palm Unavailable [phone] Allergies No Known Allergies Results Component Value Reference Range Notes Iron and TIBC-[id number] Reviewed date:09/01/2023 05:18:57 PM Interpretation: Performing Lab:[facility], [address] [place] [address], Phone - [phone], Director - Shayy Notes/Report: Iron Bind.Cap.(TIBC) 438 250-450 ug/dL UIBC 243 131-425 ug/dL Iron 195 27-159 ug/dL Iron Saturation 45 15-55 % MJHB-Vruabjf-[id number] Reviewed date:09/01/2023 05:18:58 PM Interpretation: Performing Lab:[facility], [address] [place], [place] [address], Phone - [phone], Director - Maulik Notes/Report: DHEA-Sulfate 169.0 110.0-431.7 ug/dL Cortisol-[id number] Reviewed date:09/01/2023 05:18:58 PM Interpretation: Performing Lab:[facility], [address] [place] [address], Phone - [phone], Director - MDTingdry Notes/Report: Cortisol 12.9 6.2-19.4 ug/dL Please Note: The reference interval and flagging for this test is for an AM collection. If this is a PM collection please use: Cortisol PM: 2.3-11.9 Insulin-[id number] Reviewed date:09/01/2023 05:18:58 PM Interpretation: Performing Lab:[facility], [address] [place] [address], Phone - [phone], Director - Maulik Notes/Report: Insulin 6.0 2.6-24.9 uIU/mL Ferritin-[id number] Reviewed date:09/01/2023 05:18:58 PM Interpretation: Performing Lab:[facility], [address] [place] [address], Phone - [phone], Director - Maulik Notes/Report: Ferritin 67 15-150 ng/mL PDF Report Reviewed date:09/01/2023 05:18:58 PM Interpretation: Performing Lab:[facility] [place], [address] [place] [address], Phone - [phone], Director - Maulik Notes/Report: PDF Report Reviewed date:01/14/2024 10:01:53 AM Interpretation: Performing Lab:[facility] [place], [address] [place] [address], Phone - [phone], Director - Maulik Notes/Report: CBC With Differential/Platel et-[id number] Reviewed date:01/14/2024 10:01:53 AM Interpretation: Performing [facility], [address] [place] [address], Phone - [phone], Director - Maulik Notes/Report: WBC 8.7 3.4-10.8 [...] Comments: Note: Verifie d by microscopic examination. Ferritin-[id number] Reviewed date:01/14/2024 10:01:53 AM Interpretation: Performing Lab:[address], Phone - [phone], Director - [facility] Notes/Report: Ferritin 110 15-150 ng/mL Iron and TIBC-[id number] Reviewed date:01/14/2024 10:01:53 AM Interpretation: Performing Lab:[address], Phone - [phone], Director - [facility] Notes/Report: Iron Bind.Cap.(TIBC) 384 250-450 ug/dL UIBC 193 131-425 ug/dL Iron 191 27-159 ug/dL Iron Saturation 50 15-55 % Iron and TIBC-[id number] Reviewed date:08/11/2024 12:58:45 PM Interpretation: Performing Lab:[address], Phone - [phone], Director - [facility] Notes/Report: Iron Bind.Cap.(TIBC) 438 250-450 ug/dL UIBC 277 131-425 ug/dL Iron 161 27-159 ug/dL Iron Saturation 37 15-55 % Hemoglobin W7l-[id number] Reviewed date:08/11/2024 12:58:45 PM Interpretation: Performing Lab:[address], Phone - [phone], Director [facility] Notes/Report: Hemoglobin A1c 5.1 4.8-5.6 % . Prediabetes: 5.7 - 6.4 Diabetes: >6.4 Glycemic control for adults with diabetes: <7.0 Urinalysis, Complete-[id number] Reviewed date:08/11/2024 12:58:45 PM Interpretation: Performing Lab:[address], Phone - [phone], Director [facility] Notes/Report: Specific [place] 1.014 1.005-1.030 pH 6.0 5.0-7.5 Urine-Color Yellow Yellow Appearance Clear Clear WBC Esterase Trace Negative Protein Negative Negative/Trace Glucose Negative Negative Ketones Negative Negative Occult Blood 1+ Negative Bilirubin Negative Negative Urobilinogen,Semi-Qn 0.2 0.2-1.0 mg/dL Nitrite, Urine Negative Negative Microscopic Examination See below: Micr oscopic was indicated and was performed. WBC 0-5 0 - 5 /hpf RBC 0-2 0 - 2 /hpf Epithelial Cells (non renal) 0-10 0 - 10 /hpf Casts None seen None seen /lpf Bacteria Few None seen/Few Ferritin-[id number] Reviewed date:08/11/2024 12:58:45 PM Interpretation: Performing Lab:[facility] [place], [address] [place] [address], Phone - [phone], Director - MDJodry Notes/Report: Ferritin 56 15-150 ng/mL CBC With Differential/Platel et-[id number] Reviewed date:08/11/2024 12:58:45 PM Interpretation: Performing Lab:[facility] [place], [address] [facility], [place], Phone - [phone], Director - MDJoy Notes/Report: WBC 8.7 3.4-10.8 x10E3/uL RBC 4.57 3.77-5.28 x10E6/uL Hemoglobin 14.3 11.1-15.9 g/dL Hematocrit 43.0 34.0-46.6 % MCV 94 79-97 fL MCH 31.3 26.6-33.0 pg MCHC 33.3 31.5-35.7 g/dL RDW 11.7 11.7-15.4 % Platelets 351 150-450 x10E3/uL Neutrophils 54 Not Estab. % Lymphs 30 Not Estab. % Monocytes 7 Not Estab. % Eos 8 Not Estab. % Basos 1 Not Estab. % Neutrophils (Absolute) 4.7 1.4-7.0 x10E3/uL Lymphs (Absolute) 2.6 0.7-3.1 x10E3/uL Monocytes(Absolute) 0.6 0.1-0.9 x10E3/uL Eos (Absolute) 0.7 0.0-0.4 x10E3/uL Baso (Absolute) 0.1 0.0-0.2 x10E3/uL Immature Granulocytes 0 Not Estab. % Immature Grans (Abs) 0.0 0.0-0.1 x10E3/uL Vitamin D, 50-Nstnprc-[id number] Reviewed date:08/11/2024 12:58:45 PM Interpretation: Performing Lab:[facility], [address] [facility], [place], Phone - [phone], Director - Maulik Notes/Report: Vitamin D, 25-Hydroxy 132.0 30.0-100.0 ng/mL Vitamin D deficiency has been defined by the [place] of [employer] and an Endocrine Society practice guideline as a level of serum 25-OH vitamin D less than 20 ng/mL (1,2). The Endocrine Society went on to further define vitamin D insufficiency as a level between 21 and 29 ng/mL (2). 1. IOM ([place] of Medicine). 2010. Dietary reference intakes for calcium and D. [place]: The National Academies Press. 2. Eunice MF, Vivek NGUYEN, Tu CELAYA, et al. Evaluation, treatment, and prevention of vitamin D deficiency: an Endocrine Society clinical practice guideline. JCEM. 2010; 96(7):1911-30. Comp. Metabolic Panel (14)-3 Reviewed date:08/11/2024 12:58:45 PM Interpretation: Performing Lab:[facility], [address] [facility], [place], Phone - [phone], Director - Maulik Notes/Report: Glucose 81 70-99 mg/dL BUN 19 6-20 mg/dL Creatinine 0.75 0.57-1.00 mg/dL eGFR 114 >59 mL/min/1.73 BUN/Creatinine Ratio 25 9-23 Sodium 140 134-144 mmol/L Potassium 4.7 3.5-5.2 mmol/L Chloride 102 96-106 mmol/L Carbon Dioxide, Total 21 20-29 mmol/L Calcium 10.0 8.7-10.2 mg/dL Protein, Total 6.7 6.0-8.5 g/dL Albumin 4.5 4.0-5.0 g/dL Globulin, Total 2.2 1.5-4.5 g/dL Bilirubin, Total 0.3 0.0-1.2 mg/dL Alkaline Phosphatase 45 44-121 IU/L AST (SGOT) 21 0-40 IU/L ALT (SGPT) 14 0-32 IU/L LP+Non-HDL Cholesterol-08980 5 Reviewed date:08/11/2024 12:58:45 PM Interpretation: Performing Lab:[facility], [address] [facility], [place], Phone - [phone], Director - Maulik Notes/Report: Cholesterol, Total 201 100-199 mg/dL Triglycerides 131 0-149 mg/dL HDL Cholesterol 79 >39 mg/dL VLDL Cholesterol Balwinder 22 5-40 mg/dL LDL Chol Calc (NIH) 100 0-99 mg/dL Non-HDL Cholesterol 122 0-129 mg/dL Anti-Mullerian Hormone (AMH) -[id number] Reviewed date:08/11/2024 12:58:45 PM Interpretation: Performing Lab:[facility], [address] [place], [place], Phone - [phone], Director - Maulik Notes/Report: Anti-Mullerian Hormone (AMH) 2.99 For assays employing antibodies, the possibility exists for interference by heterophile antibodies in the samples.1 1.Silvia Hess Interferences in Immunoassays - still a threat. Clin. Chem. 2000; 46: 1650-4274. This test was developed and its performance characteristics determined by [employer]. It has not been cleared or approved by the Food and Drug Administration. Reference Range: Females 20 - 25y: 1.23 - 11.51 Median 4.70 AMH concentrations of >= 1.06 ng/mL is correlated with a better response to ovarian stimulation, produced more retrievable oocytes and higher odds of live according to Keniaer et al. Fertility and Sterility. 2010: 94:4102-3702. The current AMH test method correlates with the study method with a slope of 0.94. Females at risk of ovarian hyperstimulation syndrome or polycystic ovarian syndrome (PCOS) may exhibit elevated serum AMH concentrations. AMH levels from PCOS patients may be 2 to 5 fold higher than age-appropriate reference interval values. Granulosa cell tumors of the ovary may secrete AMH along with other tumor markers. Elevated AMH is not specific for malignancy, and the assay should not be used exclusively to diagnose or exclude an AMH-secreting ovarian tumor. Abdomen Reviewed date:09/15/2023 04:21:56 PM Interpretation: Performing [...] and Electronically Signed by: SUSAN HAYDEN MD PDF Report Reviewed date:09/05/2023 08:06:26 AM Interpretation: Performing Lab:[facility], [address] [place] [address], [place], Phone - [phone], Director - Maulik Notes/Report: US Pelvic Transabdominal [...] fluid is seen. IMPRESSION: Negative examination. Examination 03971. Thank you for allowing me to participate in the care of this patient. WSN: [id number] Ordering Physician: Cris Chang Dictated By: Filipe [...] fluid is seen. IMPRESSION: Negative examination. Examination 02349. Thank you for allowi ng me to participate in the care of this patient. WSN: [id number] Ordering Physician: Cris Chang ACTH, Plasma-[id number] Reviewed date:09/05/2023 08:06:26 AM Interpretation: Performing Lab:[facility], [address] [place] [address], Phone - [phone], Director - Maulik Notes/Report: ACTH, Plasma 8.2 7.2-63.3 pg/mL ACTH referenc e interval for samples collected between 7 and 10 AM. Reason For Referral Reason Consult for Endometr iosis - any provider faxed No booking until jan need to call back end of September Diagnosis 1 Excessive and freque nt menstruation with irregular cycle (N92.1) Referral Organization [facility] Referring Provider First Name Cris Referring Provider Last Name Charlene Referring Provider Speciality Nurse Prac titioner Referred Provider Shayne Delacruz Referred Provider Specialty Herb Grower General Notes Danni MONSALVE 08/09 05:44:49 PM >faxedGRICEL Brooke R 08/31/2023 03:52:42 PM > Called [phone] spoke to Nya right now They are booking in Jan recommend for patient to call directly to pre register. Called patient to notify., Jenna MONSALVE Anish 08/31/2023 03:55:13 PM > patient aware [...] Name Charlene Referring Provider Speciality Nurse Prac marcos Referred Provider Marti Schofield Referred Provider Specialty Gastroentero logy General Notes KEYSHAWNJOSÉJenna Che Anish 07/2023 01:35:14 PM > faxed, Jenna MONSALVE Anish 09/22/2023 11:57:43 AM > faxed again Referral Priority Routine Medications Medication SIG (Take, Route, Frequency, Duration) Notes Start Date End Date Status Phentermine HCl 15 MG 1 capsule Orally Once a day for 30 days 07/19/2024 09/15/2024 Active Lia 3-0.03 MG Oral for 84 Days Not-Taking Junel 1.5-30 MG-MCG 1 tablet Orally Once a day for 21 days Dispense 3 months at a time 07/27/2024 Active metFORMIN HCl 500 MG 1 tablet with a meal Orally twice a day for 90 days Active Immunizations Vaccine Route Administration Date Status Comme nts Hep A, ped/adol, 2 dose Unknown 06/17/2017 Administered Hep A, ped/adol, 2 dose Unknown 09/12/2020 Administered KHgY-Pkf-AJW Unknown 2000 Administered HVwZ-Srz-YYH Unknown 2000 Administered DTaP Unknown 2000 Administered DTaP Unknown 06/13/2001 Administered DTaP Unknown 03/31/2005 Administered XIKNC-49-Dsbmbpa Vaccine Unknown 08/29/2020 Administere d SRSJV-05-Dsqlxwf Vaccine Unknown 09/26/2020 Administere d BTOSV-90-Kzocpzv Vaccine Unknown 05/01/2021 Administere d *Tdap Unknown 05/12/2010 Administered *Tdap Unknown 12/10/2021 Administered *Gardasil 9-HPV9v Unknown 05/21/2014 Administered *Gardasil 9-HPV9v Unknown 07/20/2014 Administered *Gardasil 9-HPV9v Unknown 11/26/2014 Administered Influenza-Afluria (IIV4) Unknown 06/02/2018 Administere d [...] point) Points 1 Interpretation Negative Section Notes: [facility] - mental health counselor [facility] - mental health counselor [facility] - mental health counselor [facility] mental health counselor [facility] mental health counselor [facility] mental health counselor [facility] mental health counselor [facility] mental health counselor Problems Problem Type SNOMED Code ICD Code Onset Dates Problem Status W/U Status Risk Notes Problem Iron deficiency anemia (49189050) Iron deficiency anemia, unspecified (D50.9) Active confirmed Problem 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) Active confirmed Problem Polycystic ovary syndrome (disorder) (444465312) Polycystic ovarian syndrome (E28.2) Active confirmed Problem Vitamin D deficiency (86301220) Vitamin D deficiency, unspecified (E55.9) Active confirmed Problem Mild recurrent major depression (32829294) Major depressive disorder, recurrent, mild (F33.0) Active confirmed Problem Irregular sleep-wake pattern (778567285) Circadian rhythm sleep disorder, 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 Problem Intermenstrual bleeding - irregular (52691969) Excessive and frequent menstruation with irregular cycle (N92.1) Active confirmed Problem Deep endometriosis of the uterus (N80.02) Active confirmed Vital Signs Heart Rate 93 /min 07/27/2024 Temperature 96.1 degrees Fahrenheit 07/27/2024 Blood pressure diastolic 66 mm Hg 07/27/2024 Oximetry 98 % 07/27/2024 Height 65.5 in 07/27/2024 Blood pressure systolic 112 mm Hg 07/27/2024 Weight 135 lbs 07/27/2024 BMI 22.12 kg/m2 07/27/2024 Encounters Encounter Location Date Provider Diagnosis Rome Palm MD [address] [id number] 08/30/2023 Cris Chang Excessive and freque nt menstruation with irregular cycle N92.1 ; Circadian rhythm sleep disorder, irregular sleep wake type G47.23 ; Lower abdominal pain, unspecified R10.30 ; Acne vulgaris L70.0 and Other adrenocortical overactivity E27.0 Rome Palm MD [address] [id number] 09/13/2023 Cris Chang Excessive and freque nt menstruation with irregular cycle N92.1 ; Lower abdominal pain, unspecified R10.30 and Deep endometriosis of the uterus N80.02 Rome Palm MD [address] [id number] 09/22/2023 Cris Chang Excessive and freque nt menstruation with irregular cycle N92.1 ; Deep endometriosis of the uterus N80.02 ; Polycystic ovarian syndrome E28.2 ; Major depressive disorder, recurrent, mild F33.0 and Encounter for surveillance of contraceptive pills Z30.41 Rome Palm MD [address] [id number] 12/15/2023 Cris Chang Iron deficiency anem ia, unspecified D50.9 ; Deep endometriosis of the uterus N80.02 ; Polycystic ovarian syndrome E28.2 ; Body mass index [BMI] 21.0-21.9, adult Z68.21 and Acute vaginitis N76.0 Rome Palm MD [address] [id number] 07/27/2024 Cris Chang Encounter for genera l [...] other mental health and behavioral disorders Z13.39 Rome Palm MD [address] [id number] 08/16/2024 Cris Palm MD [address] [id number] 08/25/2023 Cris Palm MD [address] [id number] 09/01/2023 Cris Chang Other adrenocortical overactivity E27.0 Rome Palm MD [address] [id number] 09/08/2023 Cris Palm MD [address] [id number] 09/15/2023 Cris Palm MD [address] [id number] 09/21/2023 Cris Palm MD [address] [id number] 09/22/2023 Cris Palm MD [address] [id number] 09/30/2023 Cris Palm MD [address] [id number] 11/04/2023 Cris Chang Abnormal weight gain R63.5 Rome Palm MD [address] [id number] 11/29/2023 Cris Chang Encounter for surveillance of contraceptive pills Z30.41 Rome Palm MD [address] [id number] 12/02/2023 Rome Palm Abnormal weight gain R63.5 Rome Palm MD [address] [place] [address] [id number] 12/03/2023 Cris Palm MD [address] [id number] 01/06/2024 Cris Palm MD [address] [id number] 01/06/2024 Cris Chang Polycystic ovarian syndrome E28.2 and Abnormal weight gain R63.5 Rome Palm MD [address] [id number] 01/10/2024 Cris Chang Polycystic ovarian syndrome E28.2 Rome Palm MD [address] [id number] 01/11/2024 Cris Chang Abnormal weight gain R63.5 Rome Palm MD [address] [id number] 04/17/2024 Cris Palm MD [address] [id number] 06/15/2024 Cris Palm MD [address] [id number] 07/14/2024 Cris Palm MD [address] [id number] 08/11/2024 Cris Palm MD [address] [id number] 08/19/2023 Cris Palm MD [address] [id number] 08/31/2023 Cris Palm MD [address] [id number] 09/01/2023 Cris Palm MD [address] [id number] 09/06/2023 Cris Palm MD [address] [id number] 09/08/2023 Cris Chang Deep endometriosis o f the uterus N80.02 Rome Palm MD [address] [id number] 09/16/2023 Cris Palm MD [address] [id number] 09/16/2023 Cris Palm MD [address] [id number] 09/16/2023 Cris Palm MD [address] [id number] 09/22/2023 Cris Palm MD [address] [id number] 09/27/2023 Cris Palm MD [address] [id number] 09/28/2023 Cris Chang Abnormal weight gain R63.5 Rome Palm MD [address] [id number] 10/05/2023 Cris Palm MD [address] [id number] 11/28/2023 Cris Chang Encounter for surveillance of contraceptive pills Z30.41 Rome Palm MD [address] [id number] 01/06/2024 Cris Palm MD [address] [id number] 01/17/2024 Cris Palm MD [address] [id number] 08/11/2024 Cris Chang Assessments Encounter Date Diagnosis (ICD Code) Assessment Notes Treatment Notes Treatment Clinical Notes Section Notes 08/30/2023 Circadian rhythm sleep disorder, irregular sleep wake type (ICD-10 - G47.23) Spent much time discussing patient's underlying anxiety surrounding her symptoms. Patient admits to not having great sleep patterns due to college and the stress of her current medical symptoms. Discussed an underlying sleep study and patient would like to hold on moving forward with any additional testing until further evaluation by GROUND INSTRUCTOR [employer] and endometriosis specialist is completed. Patient to [...] well.Patient states she is also seeing her spinner fixer tomorrow for further evaluation for underlying symptoms and will update our office with any additional findings or concerns that her [employer]OUND INSTRUCTOR [employer] may have 09/22/2023 Deep endometriosis of the [...] gain (ICD-10 - R63.5) last filled per [facility]: 09/28/2023 11/28/2023 Encounter for surveillance of contraceptive [...] spotting while adjusting to this medication regimen 01/10/2024 Polycystic ovarian syndrome (ICD-10 - E28.2) 01/11/2024 Abnormal weight gain (ICD-10 - R63.5) last filled per [facility]: 11/04/2023 12/15/2023 Deep endometriosis of the uterus (ICD-10 - N80.02) Reviewed again the high suspicion of endometriosis and patient is planning to be seen by Endometriosis specialist in September. Also discussed with patient she may want to adjust her diet to have low gluten as gluten does seem to be an irritant and can exacerbate endometriosis symptoms. 01/06/2024 Polycystic ovarian syndrome (ICD-10 - E28.2) 07/27/2024 Encounter for general adult medical examination without abnormal findings (ICD-10 - Z00.00) General healthcare up-to-date. Will obtain updated routine labs.Plan will be for annual in 1 year 07/27/2024 Encounter for screening for cardiovascular disorders (ICD-10 - Z13.6) Blood pressure stable. Will check for comorbidity of hyperlipidemia and hyperglycemia to further assess risk 07/27/2024 Encounter for immunization (ICD-10 - Z23) Vaccines up-to-date 01/06/2024 Abnormal weight gain (ICD-10 - R63.5) [...] weight and ensure symptoms continue to improve 07/27/2024 Encounter for antibody response examination (ICD-10 - Z01.84) Titers have been checked in the past and there is immunity to rubeola 07/27/2024 Encounter for screening for other viral diseases (ICD-10 - Z11.59) Will screen for hepatitis C as per general recommendation 12/15/2023 Acute vaginitis (ICD-10 - N76.0) Discussed [...] Other adrenocortical overactivity (ICD-10 - E27.0) Previous wage adjuster cortisol levels noted to be slightly elevated. [...] as she likes this form of control 07/27/2024 Vitamin D deficiency, unspecified (ICD-10 - [...] (ICD-10 - Z12.4) Patient is followed by [facility] MANAGER GENERAL and did complete an updated Pap smear in 2023. Patient aware that Pap smears are completed every 3 years to ensure she remains up-to-date with cervical cancer screenings 07/27/2024 Encounter for screening examination for other mental health and behavioral disorders (ICD-10 - Z13.39) PHQ score reviewed no further interventions warranted at this time 07/27/2024 Other Plan Of Treatment Pending Test Test Name Order Date QUANTIFERON TB GOLD 04/26/2023 Next Appt Details Provider Name:Cris Chang , 11/23/2024 02:30:00 PM, [address] [place] [address], [phone], Provider Name:Cris Chang , 08/02/2025 03:30:00 PM, [address] [place] [address], [phone], Insurance Providers Payer Name Payer Address Payer Phone Subscriber Number Group Number Insured Name Patient Relationship to Insured Coverage Start Date [facility]age End Date [facility] [address] [place] [id number] [phone] [id number] Amalia Marquez Self - patient is the insured Medical (General) History Medical History History ICD Code Asthma (as a child - resolved) Surgical History Surgery Date(Month/Year) Hospitalization History Reason Date(Month/Year)
--- OUTSIDE RECORDS SUMMARY | 2024-08-17 14:45 | XMS_ITS ---
Author Organization Rome Palm MD Address [address] [place] [address] [phone] Care Team Providers Care Pipeline Superintendent Name Role Phone Cris Chang Primary Care Provider REASON FOR VISIT RE:results Encounters Encounter Location Date Provider Diagnosis Rome Palm MD [address] [place] [address] [place] [address] [id number] 08/11/2024 Cris Chang Plan Of Treatment Next Appt Details Provider Name:Cris Chang , 11/23/2024 02:30:00 PM, [address] [place] [address], [phone], Provider Name:Cris Chang , 08/02/2025 03:30:00 PM, [address] [place] [address], [phone], Progress Notes * Nicolas JAQUEZhanDOB:2000 (24 yo F)Acc No.[id number]:08/11/2024 Patient:?GISELE Amalia :2000???Age:24 Y???Sex:Female Address:[address] [place], [address] * true * Date:? Generated for Printi aries/Faalethag/eTransmitting on:?08/17/2024 02:45 PM EDT
--- OUTSIDE RECORDS SUMMARY | 2024-08-17 14:46 | XMS_ITS ---
Author Organization Rome Palm MD Address [address] [place] [address] [phone] Care Team Providers Care Administrative Tech Name Role Phone Cris Chang Primary Care Provider REASON FOR VISIT refill Medications Medication SIG (Take, Route, Fr equency, Duration) Notes Start Date End Date Status Phentermine HCl 15 MG 1 capsule Orally O nce a day for 30 days 07/19/2024 09/15/2024 Active Encounters Encounter Location Date Provider Diagnosis Rome Palm MD [address] [place] [address] [place] [address] [phone] 08/16/2024 Cris Chang Plan Of Treatment Medication Medication Name Sig Start Date Stop Date Notes Phentermine HCl 15 MG 1 capsule Orally O nce a day for 30 days 07/19/2024 09/15/2024 Next Appt Details Provider Name:Cris Chang , 11/23/2024 02:30:00 PM, [address] [place] [address], [phone], Provider Name:Cris Chang , 08/02/2025 03:30:00 PM, [address] [place] [address], [phone], Progress Notes * Nicolas JAQUEZhanDOB:2000 (24 yo F)Acc No.[id number]:08/16/2024 Patient:?Paul JAQUEZobhan :2000???Age:24 Y???Sex:Female Address:[address] [place], [address] * Refills? Refill Phentermine HCl Capsule, 15 MG, Orally, 30 Capsule, 1 capsule, Once a day, 30 days, Refills=0 Subjective: * Chief Complaints: * ???Refill * Medical History:? * Surgical History:? * Hospitalization/Major Diagno stic Procedure:? * Medications:? * Allergies:?no[Allergies Veri fied] Objective: * Vitals:? Past Vitals:* 07/27/2024 Temp:96.1F, HR:93/min, BP:11 2/66mm Hg, Wt:135lbs, BMI:22.12Index, Ht:65.5in, Oxygen sat %:98% * 12/15/2023 Temp:97.0F, HR:90/min, Wt:13 3lbs, BMI:21.79Index, Ht:65.5in, Oxygen sat %:99% * 09/22/2023 Temp:96.3F, HR:70/min, Wt:14 3.7lbs, BMI:23.55Index, Ht:65.5in, Oxygen sat %:98% * Physical Examination:? Assessment: Plan: * Treatment: * Procedure Codes:? * * Date:?
--- OUTSIDE RECORDS SUMMARY | 2024-08-17 14:46 | XMS_ITS ---
Author Organization Rome Palm MD Address [address] [phone] Care Team Providers Care Childcare Attendant Name Role Phone Cris Chang Primary Care Provider [phone] REASON FOR VISIT results Encounters Encounter Location Date Provider Diagnosis Rome Palm MD 50 [facility] [place] [address] [place] [address] [phone] 08/11/2024 Cris Chang Plan Of Treatment Next Appt Details Provider Name:Cris Chang , 11/23/2024 02:30:00 PM, [address] [place] [address], [phone], Provider Name:Cris Chang , 08/02/2025 03:30:00 PM, [address] [place] [address], [phone], Progress Notes * Nicolas JAQUEZhanDOB:2000 (24 yo F)Acc No.[id number]:08/11/2024 Patient:?GISELE Amalia :2000???Age:24 Y???Sex:Female Address:[address] [place], [address] * true * Date:? Generated for Printi aries/Faalethag/eTransmitting on:?08/17/2024 02:45 PM EDT
== END 2024-08-18 08:30 | disposition home or self-care (01) ==
LOC: HO.HOP 12:12
PROVIDERS: Visit Provider Counselor Mental Health
DX: F98.8 Other specified behavioral and emotional disorders with onset usually occurring in childhood and adolescence (principal); F43.21 Adjustment disorder with depressed mood
CPT/HCPCS: 90837

== ENCOUNTER 2024-09-14 12:08 | Outpatient (AMB) | payer OTHER, SELFPAY ==
--- NOTE | 2024-09-14 12:05 | MHC.WMTHER ---
Intake Intake Visit Reasons: VIDEO OP Therapy Behavioral Health Assessment Weight Management Therapy Therapy Notes Details Subjective: The patient reports feeling overwhelmed by the many recent changes she is experiencing and is also having difficulty sleeping. She recently started a new medication, and reports that her endometriosis symptoms have been mild and manageable. The patient shared experiencing recent miscommunication that led to interpersonal conflict and emotional dysregulation, which she identified as a primary focus for today?s session. Objective: During today?s session, CBT techniques were employed to address the patient?s feelings of overwhelm and emotional dysregulation. We began with cognitive restructuring, helping the patient identify and challenge unhelpful thoughts related to current stressors and conflicts, fostering more balanced and realistic thinking. To improve mood and reduce overwhelm, behavioral activation was introduced by encouraging engagement in small, enjoyable activities and establishing a consistent routine to support better sleep. We discussed emotional regulation strategies, including deep breathing and mindfulness grounding techniques, to help manage intense emotions triggered by interpersonal conflicts. Additionally, we worked on communication skills, practicing assertive expression and conflict resolution strategies to improve interactions. Finally, problem-solving therapy was used to break down current challenges into manageable steps and explore practical solutions, empowering the patient to regain greater control over her situation. Assessment/Response: Mental status: Anxious, tense, overwhelmed at the start of the session; showed improvement by session end. Risk reported/identified: None The patient was engaged and responsive throughout the session, demonstrating insight into her emotional patterns and motivation to apply learned coping strategies. She expressed feeling validated and hopeful about managing her stressors more effectively moving forward. Assessment & Plan Assessment & Plan (1) ADD (attention deficit disorder): Code(s): F98.8 - Other specified behavioral and emotional disorders with onset usually occurring in childhood and adolescence Qualifiers: Attention deficit-hyperactivity disorder type: predominantly inattentive (2) Adjustment disorder with depressed mood: Code(s): F43.21 - Adjustment disorder with depressed mood Plan F/up in 1 month - Next juan 10/19/2024 Telehealth Telehealth Telehealth Platform: [employer] Location of provider rendering services: other ([facility], [place], [place].) Location of patient: address on file Patient Identification confirmed using: Name, : Yes Telehealth method: video Patient verbally consented to treatment: Yes Patient verbally consented to billing insurance company: Yes Patient informed of any privacy concerns related to visit: Yes Minutes spent on Phone/Video with Pt.: 60 Coding Level of Care Code Established Pt Tele Psytx >53 mins ([id number]) Patient Type Established Diagnoses ADD (attention deficit disorder) F98.8 Attention deficit-hyperactivity disorder type: predominantly inattentive Adjustment disorder with depressed mood F43.21 Time Spent (min) 60
--- OUTSIDE RECORDS SUMMARY | 2024-09-14 13:32 | XMS_ITS ---
Author Organization Rome Palm MD Address [address] [place] [address] [phone] Care Team Providers Care Artists' Model Name Role Phone Cris Chang Primary Care Provider REASON FOR VISIT refill Medications Medication SIG (Take, Route, Fr equency, Duration) Notes Start Date End Date Status Phentermine HCl 15 MG 1 capsule Orally O nce a day for 30 days 08/17/2024 09/15/2024 Active Encounters Encounter Location Date Provider Diagnosis Rome Palm MD [address] [place] [address] [place] [address] [phone] 08/16/2024 Cris Chang Plan Of Treatment Medication Medication Name Sig Start Date Stop Date Notes Phentermine HCl 15 MG 1 capsule Orally O nce a day for 30 days 08/17/2024 09/15/2024 Next Appt Details Provider Name:Cris Chang , 11/23/2024 02:30:00 PM, [address] [place] [address], [phone], Provider Name:Cris Chang , 08/02/2025 03:30:00 PM, [address] [place] [address], [phone], Progress Notes * Nicolas JAQUEZhanDOB:2000 (24 yo F)Acc No.[id number]:08/16/2024 Patient:?Paul JAQUEZobhan :2000???Age:24 Y???Sex:Female Address:[address] [place], [address] * Refills? Refill Phentermine HCl Capsule, 15 [...] true * Date:? Generated for Josue chris/Amish/Will on:?09/14/2024 01:32 PM EDT
--- OUTSIDE RECORDS SUMMARY | 2024-09-14 13:32 | XMS_ITS | Patient Health Record ---
Author Organization Rome Palm MD Address [address] [phone] Care Team Providers Care Coil Inspector Name Role Phone Cris Chang Primary Care Provider Rome Palm Unavailable [phone] Allergies No Known Allergies Results Component Value Reference Range Notes Iron and TIBC-[id number] Reviewed date:08/11/2024 12:58:45 PM Interpretation: Performing Lab:[facility], [address] [place] [address], Phone - [phone], Director - Shayy Notes/Report: Iron Bind.Cap.(TIBC) 438 250-450 ug/dL UIBC 277 131-425 ug/dL Iron 161 27-159 ug/dL Iron Saturation 37 15-55 % Hemoglobin D9w-[id number] Reviewed date:08/11/2024 12:58:45 PM Interpretation: Performing Lab:[facility], [address] [place] [address], Phone - [phone], Director - Maulik Notes/Report: Hemoglobin A1c 5.1 4.8-5.6 % . Prediabetes: 5.7 - 6.4 Diabetes: >6.4 Glycemic control for adults with diabetes: <7.0 Urinalysis, Complete-[id number] Reviewed date:08/11/2024 12:58:45 PM Interpretation: Performing Lab:[facility], [address] [place] [address], Phone - [phone], Director - Bradlydry Notes/Report: Specific [place] 1.014 1.005-1.030 pH 6.0 5.0-7.5 Urine-Color Yellow [...] None seen /lpf Bacteria Few None seen/Few Ferritin-258267 Reviewed date:08/11/2024 12:58:45 PM Interpretation: Performing Lab:[facility], [address] [place] [address], Phone - [phone], Director - MDJodry Notes/Report: Ferritin 56 15-150 ng/mL CBC With Differential/Platel et-257720 Reviewed date:08/11/2024 12:58:45 PM Interpretation: Performing Lab:[facility], [address] [place] [address], [place], Phone - [phone], Director - MDJodry Notes/Report: WBC 8.7 3.4-10.8 x10E3/uL RBC 4.57 [...] Grans (Abs) 0.0 0.0-0.1 x10E3/uL Vitamin D, 05-Jytsatu-503192 Reviewed date:08/11/2024 12:58:45 PM Interpretation: Performing Lab:[facility], [address] [facility], Phone - [phone], Director - Maulik Notes/Report: Vitamin D, 25-Hydroxy 132.0 30.0-100.0 ng/mL Vitamin D deficiency has been defined by the [place] of [employer] and an Endocrine Society practice guideline as a level of serum 25-OH vitamin D less than 20 ng/mL (1,2). The Endocrine Society went on to further define vitamin D insufficiency as a level between 21 and 29 ng/mL (2). 1. IOM ([place] [employer]). 2010. Dietary reference intakes for calcium and D. [place]: The National Academies Press. 2. Eunice MF, Vivek NC, Tu CELAYA, et al. Evaluation, treatment, and prevention of vitamin D deficiency: an Endocrine Society clinical practice guideline. JCEM. 2010; 96(7):1911-30. Comp. Metabolic Panel (14)-3 66265 Reviewed date:08/11/2024 12:58:45 PM Interpretation: Performing Lab:[facility], [address] [facility], Phone - [phone], Director - Maulik Notes/Report: Glucose 81 70-99 [...] IU/L ALT (SGPT) 14 0-32 IU/L LP+Non-HDL Cholesterol-28154 5 Reviewed date:08/11/2024 12:58:45 PM Interpretation: Performing Lab:[facility], [address] [place] [address], Phone - [phone], Director - [facility] Notes/Report: Cholesterol, Total 201 100-199 mg/dL Triglycerides 131 0-149 mg/dL HDL Cholesterol 79 >39 mg/dL VLDL Cholesterol Balwinder 22 5-40 mg/dL LDL Chol Calc (NIH) 100 0-99 mg/dL Non-HDL Cholesterol 122 0-129 mg/dL Anti-Mullerian Hormone (AMH) -633153 Reviewed date:08/11/2024 12:58:45 PM Interpretation: Performing Lab:[facility], [facility], Phone - [phone], Director - [facility] Notes/Report: Anti-Mullerian Hormone (AMH) 2.99 For assays employing antibodies, the possibility exists for interference by heterophile antibodies in the samples.1 1.Silvia Hess Interferences in Immunoassays - still a threat. Clin. Chem. 2000; 46: 1897-2039. This test was developed and its performance characteristics determined by [employer]. It has not been cleared or approved by the Food and Drug Administration. Reference Range: Females 20 - 25y: 1.23 - 11.51 Median 4.70 AMH concentrations of >= 1.06 ng/mL is correlated with a better response to ovarian stimulation, produced more retrievable oocytes and higher odds of live according to Gleicher et al. Fertility and Sterility. 2010: 94:7781-9936. The current AMH test method correlates with [...] diagnose or exclude an AMH-secreting ovarian tumor. Iron and TIBC-[id number] Reviewed date:01/14/2024 10:01:53 AM Interpretation: Performing Lab:[facility], [place], Phone - [phone], Director - [facility] Notes/Report: Iron Bind.Cap.(TIBC) 384 250-450 ug/dL UIBC 193 131-425 ug/dL Iron 191 27-159 ug/dL Iron Saturation 50 15-55 % Ferritin-617653 Reviewed date:01/14/2024 10:01:53 AM Interpretation: Performing Lab:[facility], [facility], Phone - [phone], Director - Maulik Notes/Report: Ferritin 110 15-150 ng/mL CBC With Differential/Platel et-666555 Reviewed date:01/14/2024 10:01:53 AM Interpretation: Performing Lab:[facility], [address] [facility], Phone - [phone], Director - Maulik Notes/Report: WBC 8.7 3.4-10.8 [...] Reviewed date:01/14/2024 10:01:53 AM Interpretation: Performing Lab:[facility], [address] [facility], Phone - [phone], Director - Maulik Notes/Report: Reason For Referral No Information Medications Medication SIG (Take, Route, Frequency, Duration) Notes Start Date End Date Status Phentermine HCl 15 MG 1 capsule Orally Once a day for 30 days 08/17/2024 09/15/2024 Active Lia 3-0.03 MG Oral for 84 Days Not-Taking Junel 1.5-30 MG-MCG 1 tablet Orally Once a day for 21 days Dispense 3 months at a time 07/27/2024 Active metFORMIN HCl 500 MG 1 tablet with a meal Orally twice a day for 90 days Active Immunizations Vaccine Route Administration Date Status Comme nts Varicella Unknown 05/12/2010 Administered MMRV Unknown 03/11/2001 Administered MMR Unknown 03/21/2004 Administered Meningococcal MCV4O (CVX 136) Unknown 05/16/2012 Admini stered Meningococcal MCV4O (CVX 114) Unknown 06/02/2018 Admini stered Meningococcal Group B Unknown 06/02/2018 Administered Meningococcal Group B Unknown 07/05/2018 Administered IPV Unknown 2000 Administered IPV Unknown 03/31/2005 Administered Influenza-Afluria (IIV4) Unknown 06/02/2018 Administere d Influenza-Afluria (IIV4) Unknown 05/19/2019 Administere d Influenza-Afluria (IIV4) Unknown 03/19/2021 Administere d Hep A, ped/adol, 2 dose Unknown 06/17/2017 Administered Hep A, ped/adol, 2 dose Unknown 09/12/2020 Administered AScU-Ich-LOI Unknown 2000 Administered XJmQ-Wjn-KHD Unknown 2000 Administered DTaP Unknown 2000 Administered DTaP Unknown 06/13/2001 Administered DTaP Unknown 03/31/2005 Administered ELROP-20-Iiwnwfj Vaccine Unknown 08/29/2020 Administere d RMDYH-84-Zmxmxjo Vaccine Unknown 09/26/2020 Administere d RNEFT-63-Rehwalb Vaccine Unknown 05/01/2021 Administere d *Tdap Unknown 05/12/2010 Administered *Tdap Unknown 12/10/2021 Administered *Gardasil 9-HPV9v Unknown 05/21/2014 Administered *Gardasil 9-HPV9v Unknown 07/20/2014 Administered *Gardasil 9-HPV9v Unknown 11/26/2014 Administered Social History Tobacco Use: Social History [...] Points 1 Interpretation Negative Section Notes: [facility] counselor [facility] counselor [facility] counselor [facility] counselor [facility] counselor [facility] counselor [facility] counselor [facility] counselor Problems Problem Type SNOMED Code ICD Code Onset Dates Problem Status W/U Status Risk Notes Problem Iron deficiency anemia (46725088) Iron deficiency anemia, unspecified (D50.9) Active confirmed Problem 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) Active confirmed Problem Polycystic ovary syndrome (disorder) (481616537) Polycystic ovarian syndrome (E28.2) Active confirmed Problem Vitamin D deficiency (33200305) Vitamin D deficiency, unspecified (E55.9) Active confirmed Problem Mild recurrent major depression (11551634) Major depressive disorder, recurrent, mild (F33.0) Active confirmed Problem Irregular sleep-wake pattern (726972886) Circadian rhythm sleep disorder, 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 Problem Intermenstrual bleeding - irregular (92204572) Excessive and frequent menstruation with irregular cycle [...] Location Date Provider Diagnosis Rome Palm MD [address] [id number] 09/22/2023 Cris Chang Excessive and freque nt menstruation with irregular cycle N92.1 ; Deep endometriosis of the uterus N80.02 ; Polycystic ovarian syndrome E28.2 ; Major depressive disorder, recurrent, mild F33.0 and Encounter for surveillance of contraceptive pills Z30.41 Rome Palm MD [address] [id number] 12/15/2023 Cris Chang Iron deficiency anem ia, unspecified D50.9 ; Deep endometriosis of the uterus N80.02 ; Polycystic ovarian syndrome E28.2 ; Body mass index [BMI] 21.0-21.9, adult Z68.21 and Acute vaginitis N76.0 Rome Palm MD [address] [id number] 07/27/2024 Cris Chang Encounter for genera l [...] and behavioral disorders Z13.39 Rome Palm MD [address] [id number] 09/15/2023 Cris Palm MD [address] [id number] 09/21/2023 Cris Palm MD [address] [id number] 09/22/2023 Cris Palm MD [address] [id number] 09/30/2023 Cris Palm MD [address] [id number] 11/04/2023 Cris Chang Abnormal weight gain R63.5 Rome Palm MD [address] [id number] 11/29/2023 Cris Chang Encounter for surveillance of contraceptive pills Z30.41 Rome Palm MD [address], [place] [id number] 12/02/2023 Rome Palm Abnormal weight gain R63.5 Rome Palm MD PC [address] [facility] [address] [place] [address] [id number] 12/03/2023 Cris Palm MD PC 50 [facility] [address] [place] [address] [id number] 01/06/2024 Cris Chang Rome Palm MD PC 50 [facility] [address] [place] [address] [id number] 01/06/2024 Cris Chang Polycystic ovarian syndrome E28.2 and Abnormal weight gain R63.5 Rome Palm MD PC 50 [facility] [address] [place] [address] [id number] 01/10/2024 Cris Chang Polycystic ovarian syndrome E28.2 Rome Palm MD PC 50 [facility] [address] [place] [address] [id number] 01/11/2024 Cris Chang Abnormal weight gain R63.5 Rome Palm MD PC 50 [facility] [address] [place] [address] [id number] 04/17/2024 Cris Palm MD PC 50 [facility] [address] [place] [address] [id number] 06/15/2024 Cris Palm MD PC 50 [facility] [address] [place] [address] [id number] 07/14/2024 Cris Palm MD PC 50 [facility] [address] [place] [address] [id number] 08/11/2024 Cris Palm MD PC 50 [facility] [address] [place] [address] [id number] 08/16/2024 Cris Palm MD PC 50 [facility] [address] [place] [address] [id number] 09/16/2023 Cris Palm MD PC 50 [facility] [address] [place] [address] [id number] 09/16/2023 Cris Palm MD PC 50 [facility] [address] [place] [address] [id number] 09/16/2023 Cris Palm MD PC 50 [facility] [address] [place] [address] [id number] 09/22/2023 Cris Palm MD PC 50 [facility] [address] [place] [address] [id number] 09/27/2023 Cris Palm MD [address] [id number] 09/28/2023 Cris Chang Abnormal weight gain R63.5 Rome Palm MD [address] [id number] 10/05/2023 Cris Palm MD [address] [id number] 11/28/2023 Cris Chang Encounter for surveillance of contraceptive pills Z30.41 Rome Palm MD [address] [id number] 01/06/2024 Cris Palm MD [address] [id number] 01/17/2024 Cris Palm MD [address] [id number] 08/11/2024 Cris Chang Assessments Encounter Date Diagnosis (ICD Code) Assessment Notes Treatment Notes Treatment Clinical Notes Section Notes 09/22/2023 Deep endometriosis of the uterus (ICD-10 [...] gain (ICD-10 - R63.5) last filled per [facility]: 09/28/2023 11/28/2023 Encounter for surveillance of contraceptive [...] assist with managing symptoms of underlying PCOS 09/22/2023 Major depressive disorder, recurrent, [...] (ICD-10 - Z12.4) Patient is followed by [facility] DERMATOLOGY SALES REPRESENTATIVE and did complete an updated Pap smear [...] Provider Name:Cris Chang , 11/23/2024 02:30:00 PM, [address] [place] [address], [address], [phone], Provider Name:Cris Chang , 08/02/2025 03:30:00 PM, [address] [place] [address], [address], [phone], Insurance Providers Payer Name Payer Address Payer Phone Subscriber Number Group Number Insured Name Patient Relationship to Insured Coverage Start Date Coverage End Date HILDA NELSON [id number] [place], [place] [id number] Amalia Marquez Self - patient is the insured Medical (General) History Medical History History ICD Code Asthma (as a child - resolved) Surgical History Surgery Date(Month/Year) Hospitalization History Reason Date(Month/Year)
--- OUTSIDE RECORDS SUMMARY | 2024-09-14 13:32 | XMS_ITS ---
Author Organization Rome Palm MD Address [address] [place] [address] [phone] Care Team Providers Care Bark Fitter Name Role Phone Cris Chang Primary Care Provider REASON FOR VISIT RE:results Encounters Encounter Location Date Provider Diagnosis Rome Palm MD [address] [place] [address] [place] [address] [id number] 08/11/2024 Cris Chang Plan Of Treatment Next Appt Details Provider Name:Cris Chang , 11/23/2024 02:30:00 PM, [address] [place] [address], [phone], Provider Name:Cris Chang , 08/02/2025 03:30:00 PM, [address] [place] [address], [phone], Progress Notes * Nicolas JAQUEZhanDOB:2000 (24 yo F)Acc No.[id number]:08/11/2024 Patient:?GISELE Amalia :2000???Age:24 Y???Sex:Female Address:[address] [place], [address] * true * Date:? Generated for Printi aries/Faalethag/eTransmitting on:?09/14/2024 01:32 PM EDT
--- OUTSIDE RECORDS SUMMARY | 2024-09-14 13:33 | XMS_ITS ---
Author Organization Rome Palm MD Address [address] [phone] Care Team Providers Care Senior Design Engineer Name Role Phone Cris Chang Primary Care Provider REASON FOR VISIT results Encounters Encounter Location Date Provider Diagnosis Rome Palm MD 50 [facility] [place] [address] [place] [address] [phone] 08/11/2024 Cris Chang Plan Of Treatment Next Appt Details Provider Name:Cris Chang , 11/23/2024 02:30:00 PM, [address] [place] [address], [phone], Provider Name:Cris Chang , 08/02/2025 03:30:00 PM, [address] [place] [address], [phone], Progress Notes * Nicolas JAQUEZhanDOB:2000 (24 yo F)Acc No.[id number]:08/11/2024 Patient:?GISELE Amalia :2000???Age:24 Y???Sex:Female Address:[address] [facility], [address] * true * Date:? Generated for Printi aries/Faalethag/eTransmitting on:?09/14/2024 01:32 PM EDT
== END 2024-09-14 13:14 | disposition home or self-care (01) ==
LOC: HO.HOP 12:08
PROVIDERS: Visit Provider Counselor Mental Health
DX: F98.8 Other specified behavioral and emotional disorders with onset usually occurring in childhood and adolescence (principal); F43.21 Adjustment disorder with depressed mood
CPT/HCPCS: 90837

== ENCOUNTER 2024-11-23 12:19 | Outpatient (AMB) | payer OTHER, SELFPAY ==
--- NOTE | 2024-11-23 12:05 | MHC.WMTHER ---
Intake Intake Visit Reasons: VIDEO OP Therapy Behavioral Health Assessment Weight Management Therapy Therapy Notes Details Subjective: Patient reports graduating with her master?s degree in September. She underwent surgery last month for endometriosis, which was found in several areas; her recovery has been going well. The patient has decided to move to [place] alone and hopes to complete the move by December. She remains in a relationship with her boyfriend, but notes that the relationship is changing, which is causing her to feel sad and uncertain at times. She describes feeling as though she is going through many transitions, which is impacting her mood and contributing to feelings of stress and emotional fluctuation. Objective: Patient presented for a follow-up behavioral health appointment via telehealth; this is her first session since 09/14/2024. During the session, the patient appeared well-groomed, alert, and cooperative. Her speech was clear and coherent, and her thought process was logical and goal-directed. Mood was described as ?up and down,? with affect congruent to the topics discussed. No psychomotor agitation or retardation was observed. Interventions during the session included processing recent life transitions, such as her graduation, surgical recovery, and upcoming move. Supportive counseling was provided to help her identify and validate her emotions related to these changes. Cognitive-behavioral strategies were introduced to help her reframe negative thoughts and manage uncertainty about her relationship and future plans. Psychoeducation was provided on the normalcy of experiencing a range of emotions during periods of significant change. Coping skills were reviewed and encouraged to help her manage stress and mood fluctuations. The importance of maintaining social connections and self-care routines during this period of transition was also emphasized. Assessment/Response: Mental status: Alert and oriented x3, mood mildly dysphoric but appropriate to circumstances, affect congruent, speech normal, thought process logical, no evidence of psychosis or cognitive impairment, insight and judgment intact. Risk reported/identified: WNL Assessment & Plan Assessment & Plan (1) ADD (attention deficit disorder): Code(s): F98.8 - Other specified behavioral and emotional disorders with onset usually occurring in childhood and adolescence Qualifiers: Attention deficit-hyperactivity disorder type: predominantly inattentive (2) Adjustment disorder with depressed mood: Code(s): F43.21 - Adjustment disorder with depressed mood Plan Continue supportive therapy with a focus on adjustment, coping skills, and emotional regulation during transitions. Monitor mood and adjustment to new living situation and relationship changes. Follow up in 1 weeks. Next appointment scheduled for 11/29/2024, via telehealth. Telehealth Telehealth Telehealth Platform: [employer] Location of provider rendering services: other (Home office. [place], [place]) Location of patient: address on file Patient Identification confirmed using: Name, : Yes Telehealth method: video Patient verbally consented to treatment: Yes Patient verbally consented to billing insurance company: Yes Patient informed of any privacy concerns related to visit: Yes Minutes spent on Phone/Video with Pt.: 55 Coding Level of Care Code Established Pt Tele Psytx >53 mins (43634) Patient Type Established Diagnoses ADD (attention deficit disorder) F98.8 Attention deficit-hyperactivity disorder type: predominantly inattentive Adjustment disorder with depressed mood F43.21 Time Spent (min) 55
--- OUTSIDE RECORDS SUMMARY | 2024-11-23 12:51 | XMS_ITS ---
Author Name [facility] Organization Unknown History of Medication Use Medication Directions Dispensed Refills Start Date End Date Stat us Aurovela 1.5/30 oral tablet 1 tab, Oral, Daily, 0 Refill(s) 11/14/2024 Ordered inositol Oral, 0 Refill(s) 11/02/2023 Or dered metFORMIN 500 mg oral tablet 1 tab, Oral, BID, 0 Refill(s) 11/02/2023 Ordered norgestimate-ethinyl estradiol 0.25 mg-35 mcg oral tablet 1 tab, Oral, Daily, 0 Refill(s) 11/02/2023 Ordered phentermine 15 mg oral capsule 1 cap, Oral, Daily, 0 Refill(s) 11/02/2023 Ordered Vitex Vitex, 0 Refill(s) 11/02/2023 Or dered Problems Problem Status Onset Date Problem Type Date of Resoluti on Source Constipation (disorder) active ProblemAct [facility] Abdominal bloating (finding) active ProblemAct [facility] Polycystic ovary syndrome active ProblemAct [facility] Endometriosis (disorder) active ProblemAct [facility] Encounters Encounter Type Encounter Reason Primary Diagnosis Location Date Ambulatory 4 MONTH FOLLOW UP [facility] 11/14/2024 Ambulatory 6 MONTH FOLLOW UP [facility] 07/12/2024 Ambulatory DIARRHEA/ CONSTIPATION, BLOATING NO APPETITE FATIGUE [facility] 11/02/2023 Care Team Organization Name Specialty Phone Email Start Date End Da te [facility] 11/02/2023 [facility] 11/02/2023 [facility] 09/20/2023
--- OUTSIDE RECORDS SUMMARY | 2024-11-23 12:51 | XMS_ITS | Patient Health Record ---
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 Name Role Phone Cris Chang Primary Care Provider [phone] Rome Palm Unavailable [phone] Allergies No Known Allergies Results Component Value Reference Range Notes Iron and TIBC-[id number] Reviewed date:01/14/2024 10:01:53 AM Interpretation: Performing Lab:[facility] [place], [address] [place] [address], Phone - [phone], Director - Shayy Notes/Report: Iron Bind.Cap.(TIBC) 384 250-450 ug/dL UIBC 193 131-425 ug/dL Iron 191 27-159 ug/dL Iron Saturation 50 15-55 % Ferritin-[id number] Reviewed date:01/14/2024 10:01:53 AM Interpretation: Performing Lab:[facility] [place], [address] [place] [address], Phone - [phone], Director - MDJodry Notes/Report: Ferritin 110 15-150 ng/mL CBC With Differential/Platel et-[id number] Reviewed date:01/14/2024 10:01:53 AM Interpretation: Performing Lab:[facility] [place], [address] [place] [address], Phone - [phone], Director - MDJodry Notes/Report: WBC 8.7 3.4-10.8 x10E3/uL RBC 4.65 [...] Report Reviewed date:01/14/2024 10:01:53 AM Interpretation: Performing Lab:[facility] [address], Phone - [phone], Director - Maulik Notes/Report: Iron and TIBC-[id number] Reviewed date:08/11/2024 12:58:45 PM Interpretation: Performing Lab:[facility] [address], Phone - [phone], - Maulik Notes/Report: Iron Bind.Cap.(TIBC) 438 250-450 ug/dL UIBC 277 131-425 ug/dL Iron 161 27-159 ug/dL Iron Saturation 37 15-55 % Hemoglobin J1q-[id number] Reviewed date:08/11/2024 12:58:45 PM Interpretation: Performing Lab:[facility] [address] [place] [address], Phone - [phone], Director - Maulik Notes/Report: Hemoglobin A1c 5.1 4.8-5.6 % . Prediabetes: 5.7 - 6.4 Diabetes: >6.4 Glycemic control for adults with diabetes: <7.0 Urinalysis, Complete-[id number] Reviewed date:08/11/2024 12:58:45 PM Interpretation: Performing Lab:[facility] [address], Phone - [phone], Director Margarita Willingham Notes/Report: Specific Flasher 1.014 1.005-1.030 pH 6.0 5.0-7.5 Urine-Color Yellow [...] None seen /lpf Bacteria Few None seen/Few Ferritin-[id number] Reviewed date:08/11/2024 12:58:45 PM Interpretation: Performing Lab:[facility], [address] [place] [address], Phone - [phone], Director - MDJodry Notes/Report: Ferritin 56 15-150 ng/mL CBC With Differential/Platel et-[id number] Reviewed date:08/11/2024 12:58:45 PM Interpretation: Performing Lab:[facility], [address] [facility], [place], Phone - [phone], Director - MDJodry Notes/Report: WBC 8.7 3.4-10.8 [...] Grans (Abs) 0.0 0.0-0.1 x10E3/uL Vitamin D, 89-Pvxujau-[id number] Reviewed date:08/11/2024 12:58:45 PM Interpretation: Performing Lab:[facility] [place], [address] [place] [address], Phone - [phone], Director - Maulik Notes/Report: Vitamin D, 25-Hydroxy 132.0 30.0-100.0 ng/mL Vitamin D deficiency has been defined by the [place] of [employer] and an Endocrine Society practice guideline as a level of serum 25-OH vitamin D less than 20 ng/mL (1,2). The Endocrine Society went on to further define vitamin D insufficiency as a level between 21 and 29 ng/mL (2). 1. IOM ([place] of Medicine). 2010. Dietary reference intakes for calcium and D. [place]: The National AcademPubMatic Press. 2. Eunice MF, Vivek NC, Tu CELAYA, et al. Evaluation, treatment, and prevention of vitamin D deficiency: an Endocrine Society clinical practice guideline. JCEM. 2010; 96(7):1911-30. Comp. Metabolic Panel (14)-3 87998 Reviewed date:08/11/2024 12:58:45 PM Interpretation: Performing Lab:[facility] [place], [address] [place] [address], [place], Phone - [phone], Director - Maulik Notes/Report: Glucose 81 70-99 [...] IU/L ALT (SGPT) 14 0-32 IU/L LP+Non-HDL Cholesterol-62566 5 Reviewed date:08/11/2024 12:58:45 PM Interpretation: Performing Lab:[facility], [address] [facility], [place], Phone - [phone], Director - [facility] Notes/Report: Cholesterol, Total 201 100-199 mg/dL Triglycerides 131 0-149 mg/dL HDL Cholesterol 79 >39 mg/dL VLDL Cholesterol Balwinedr 22 5-40 mg/dL LDL Chol Calc (NIH) 100 0-99 mg/dL Non-HDL Cholesterol 122 0-129 mg/dL Anti-Mullerian Hormone (AMH) -256901 Reviewed date:08/11/2024 12:58:45 PM Interpretation: Performing Lab:[facility], [facility], [place], Phone - [phone], Director - [facility] Notes/Report: Anti-Mullerian Hormone (AMH) 2.99 For assays employing antibodies, the possibility exists for interference by heterophile antibodies in the samples.1 1.Silvia Hess Interferences in Immunoassays - still a threat. Clin. Chem. 2000; 46: 5413-5599. This test was developed and its performance characteristics determined by [employer]. It has not been cleared or approved by the Food and Drug Administration. Reference Range: Females 20 - 25y: 1.23 - 11.51 Median 4.70 AMH concentrations of >= 1.06 ng/mL is correlated with a better response to ovarian stimulation, produced more retrievable oocytes and higher odds of live according to Gleicher et al. Fertility and Sterility. 2010: 94:4605-9614. The current AMH test method correlates with [...] diagnose or exclude an AMH-secreting ovarian tumor. Reason For Referral No Information Medications Medication SIG (Take, Route, Frequency, Duration) Notes Start Date End Date Status Aurovela 1.5/30 1.5-30 MG-MCG TAKE 1 TABLET BY MOUTH EVERY DAY; Duration: 84 Active Lia 3-0.03 MG Oral; Duration: 84 Days Not-Taking metFORMIN HCl 500 MG 1 tablet with a peyton l Orally twice a day; Duration: 90 days Active Immunizations Vaccine Route Administration Date Status Comme nts [id number]-Euf-NQD Unknown 2000 Administered GXgK-Jtq-AXA Unknown 2000 Administered Hep A, ped/adol, 2 dose Unknown 06/17/2017 Administered Hep A, ped/adol, 2 dose Unknown 09/12/2020 Administered DTaP Unknown 2000 Administered DTaP Unknown 06/13/2001 Administered DTaP Unknown 03/31/2005 Administered DGOPP-94-Tbwihbq Vaccine Unknown 08/29/2020 Administere d JVVKM-94-Fsonaqn Vaccine Unknown 09/26/2020 Administere d IJLAD-66-Ufrvaqh Vaccine Unknown 05/01/2021 Administere d *Tdap Unknown [...] point) Points 1 Interpretation Negative Section Notes: [facility] counselor [facility] counselor [facility] counselor [facility] counselor [facility] health counselor [facility] counselor [facility] counselor [facility] counselor Problems Problem Type SNOMED Code ICD Code Onset Dates Problem Status W/U Status Risk Notes Problem Iron deficiency anemia (70151971) Iron deficiency anemia, unspecified (D50.9) Active confirmed Problem 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) Active confirmed Problem Polycystic ovary syndrome (disorder) (945380118) Polycystic ovarian syndrome (E28.2) Active confirmed Problem Vitamin D deficiency (18407611) Vitamin D deficiency, unspecified (E55.9) Active confirmed Problem Mild recurrent major depression (90254851) Major depressive disorder, recurrent, mild (F33.0) Active confirmed Problem Irregular sleep-wake pattern (327361415) Circadian rhythm sleep disorder, 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 Problem Intermenstrual bleeding - irregular (62529614) Excessive and frequent menstruation with irregular cycle [...] Location Date Provider Diagnosis Rome Palm MD [address] [id number] 12/15/2023 Cris Chang Iron deficiency anem ia, unspecified D50.9 ; Deep endometriosis of the uterus N80.02 ; Polycystic ovarian syndrome E28.2 ; Body mass index [BMI] 21.0-21.9, adult Z68.21 and Acute vaginitis N76.0 Rome Palm MD [address] [id number] 07/27/2024 Cris Chang Encounter for genera l [...] and behavioral disorders Z13.39 Rome Palm MD [address] [id number] 11/29/2023 Cris Chang Encounter for surveillance of contraceptive pills Z30.41 Rome Palm MD [address] [id number] 12/02/2023 Rome Palm Abnormal weight gain R63.5 Rome Palm MD [address] [id number] 12/03/2023 Cris Palm MD [address] [id number] 01/06/2024 Cris Palm MD [address] [id number] 01/06/2024 Cris Chang Polycystic ovarian syndrome E28.2 and Abnormal weight gain R63.5 Rome Palm MD [address] [id number] 01/10/2024 Cris Chang Polycystic ovarian syndrome E28.2 Rome Palm MD [address] [id number] 01/11/2024 Cris Chang Abnormal weight gain R63.5 Rome Palm MD [address] [id number] 04/17/2024 Cris Palm MD [address] [id number] 06/15/2024 Cris Palm MD [address] [id number] 07/14/2024 Cris Palm MD [address] [id number] 08/11/2024 Cris Palm MD [address] [id number] 08/16/2024 Cris Palm MD [address] [id number] 09/19/2024 Rome Palm MD [address] [id number] 11/28/2023 Cris Chang Encounter for surveillance of contraceptive pills Z30.41 Rome Palm MD [address] [id number] 01/06/2024 Cris Palm MD [address] [id number] 01/17/2024 Cris Palm MD [address] [id number] 08/11/2024 Cris Chang Assessments Encounter Date Diagnosis (ICD Code) Assessment Notes Treatment Notes Treatment Clinical Notes Section Notes 11/28/2023 Encounter for surveillance of contraceptive pills (ICD-10 - Z30.41) 11/29/2023 Encounter for surveillance of contraceptive pills (ICD-10 - Z30.41) 12/02/2023 Abnormal weight gain (ICD-10 - R63.5) 12/15/2023 Iron deficiency anemia, unspecified (ICD-10 - D50.9) Patient has had previous lab results with findings of elevated iron levels. Will obtain an updated iron and ferritin level for further evaluation 01/10/2024 Polycystic ovarian syndrome (ICD-10 - E28.2) 01/11/2024 Abnormal weight gain (ICD-10 - R63.5) [facility] per [facility]: 11/04/2023 12/15/2023 Deep endometriosis of the uterus [...] gain (ICD-10 - R63.5) last filled: 11/04/2023 12/15/2023 Polycystic ovarian syndrome (ICD-10 - E28.2) Previous MRI findings did suggest PCOS given increased ovarian follicles. Discussed that PCOS and endometriosis can be found together and the best management for PCOS is to manage insulin resistance. Patient to begin metformin and patient to continue working on weight loss to assist with managing symptoms of underlying PCOS 12/15/2023 Body mass index [BMI] 21.0-21.9, [...] her SUSANNAH's to help manage her underlying. 07/27/2024 Vitamin D deficiency, unspecified (ICD-10 - [...] (ICD-10 - Z12.4) Patient is followed by [facility] and did complete an updated Pap smear [...] Provider Name:Cris Chang , 11/23/2024 02:30:00 PM, [address] [place] [address], [phone], Provider Name:Cris Chang , 08/02/2025 03:30:00 PM, [address] [place] [address], [place], [place], [phone], Insurance Providers Payer Name Payer Address Payer Phone Subscriber Number Group Number Insured Name Patient Relationship to Insured Coverage Start Date Coverage End Date HILDA [employer]ELSON [address] [place] [address] [phone] [id number] Amalia Marquez Self - patient is the insured Medical (General) History Medical History History ICD Code Asthma (as a child - resolved) Surgical History Surgery Date(Month/Year) Hospitalization History Reason Date(Month/Year)
== END 2024-11-23 13:08 | disposition home or self-care (01) ==
LOC: HO.HOP 12:19
PROVIDERS: Visit Provider Counselor Mental Health
DX: F98.8 Other specified behavioral and emotional disorders with onset usually occurring in childhood and adolescence (principal); F43.21 Adjustment disorder with depressed mood
CPT/HCPCS: 90837

== ENCOUNTER 2024-12-12 13:14 | Outpatient (AMB) | payer OTHER, SELFPAY ==
--- NOTE | 2024-12-12 13:10 | A.OFFWM_ITS ---
Intake Intake Visit Reasons: VIDEO OP Therapy Behavioral Health Assessment Weight Management Therapy Therapy Notes Details Subjective: The patient reports experiencing increased anxiety and stress related to a current life transition. Despite these challenges, she notes that family dynamics are stable and her relationship with her boyfriend has improved. Objective: The patient presented for a follow-up visit via Telehealth. The session focused on supporting her through the ongoing transition and addressing the associated anxiety and stress. Interventions included exploring her current stressors and identifying specific triggers contributing to her anxiety. Cognitive-behavioral strategies were introduced to enhance her decision-making skills and promote adaptive coping. Psychoeducation was provided on stress management techniques, including deep breathing and grounding exercises. The patient was encouraged to utilize a daily routine and self-monitor her mood and anxiety levels. Motivational interviewing was used to reinforce her progress in managing interpersonal relationships and to support her continued engagement in positive behavioral changes. Assessment/Response: * Mental status: The patient appeared alert and oriented, with appropriate affect and mood congruent with the content discussed. Thought processes were logical and goal-directed. No evidence of psychosis, suicidal ideation, or homicidal ideation was observed. * Risk reported/identified: No acute safety concerns identified. The patient denied any thoughts of self-harm or harm to others. Assessment & Plan Assessment & Plan (1) ADD (attention deficit disorder): Code(s): F98.8 - Other specified behavioral and emotional disorders with onset usually occurring in childhood and adolescence Qualifiers: Attention deficit-hyperactivity disorder type: predominantly inattentive (2) Adjustment disorder with depressed mood: Code(s): F43.21 - Adjustment disorder with depressed mood Plan Follow-up in 1 week. Next appointment scheduled for 12/19/2024. Telehealth Telehealth Telehealth Platform: [employer] Location of provider rendering services: other (Home office. [place], [place]) Location of patient: address on file Patient Identification confirmed using: Name, : Yes Telehealth method: video Patient verbally consented to treatment: Yes Patient verbally consented to billing insurance company: Yes Patient informed of any privacy concerns related to visit: Yes Minutes spent on Phone/Video with Pt.: 55 Coding Level of Care Code Established Pt Tele Psytx >53 mins (41952) Patient Type Established Diagnoses ADD (attention deficit disorder) F98.8 Attention deficit-hyperactivity disorder type: predominantly inattentive Adjustment disorder with depressed mood F43.21 Time Spent (min) 55
--- OUTSIDE RECORDS SUMMARY | 2024-12-12 13:52 | XMS_ITS | Patient Health Record ---
Author Organization Rome Palm MD Address [address] [place] [address] [phone] Care Team Providers Care Professor Criminal Justice Name Role Phone Cris Chang Primary Care Provider Rome Palm Unavailable [phone] Allergies No Known Allergies Results Component Value Reference Range Notes PDF Report Reviewed date:01/14/2024 10:01:53 AM Interpretation: Performing Lab:[facility], [address] [place] [address], Phone - [phone], Director - Maulik Notes/Report: Iron and TIBC-[id number] Reviewed date:08/11/2024 12:58:45 PM Interpretation: Performing Lab:[facility], [email or web address], Phone - [phone], - Maulik Notes/Report: Iron Bind.Cap.(TIBC) 438 250-450 ug/dL UIBC 277 131-425 ug/dL Iron 161 27-159 ug/dL Iron Saturation 37 15-55 % Hemoglobin [id number] Reviewed date:08/11/2024 12:58:45 PM Interpretation: Performing Lab:[facility], [email or web address] [place], Phone - [phone], Director - Maulik Notes/Report: Hemoglobin A1c 5.1 4.8-5.6 % . Prediabetes: 5.7 - 6.4 Diabetes: >6.4 Glycemic control for adults with diabetes: <7.0 Urinalysis, Complete-[id number] Reviewed date:08/11/2024 12:58:45 PM Interpretation: Performing Lab:[facility], [address] [place], [place] [address] [place], Phone - [phone], Director Margarita Willingham Notes/Report: Specific [place] 1.014 1.005-1.030 pH 6.0 5.0-7.5 Urine-Color Yellow [...] None seen /lpf Bacteria Few None seen/Few Ferritin-[id number] Reviewed date:08/11/2024 12:58:45 PM Interpretation: Performing Lab:[facility], [address] [place] [address], Phone - [phone], Director - MDdry Notes/Report: Ferritin 56 15-150 ng/mL CBC With Differential/Platel et-155043 Reviewed date:08/11/2024 12:58:45 PM Interpretation: Performing Lab:[facility], [address] [facility], [place], Phone - [phone], Director - MDJodry Notes/Report: WBC 8.7 3.4-10.8 [...] Grans (Abs) 0.0 0.0-0.1 x10E3/uL Vitamin D, 56-Mxcudhn-263122 Reviewed date:08/11/2024 12:58:45 PM Interpretation: Performing Lab:[facility], [address] [facility], Phone - [phone], Director - Maulik Notes/Report: Vitamin D, 25-Hydroxy 132.0 30.0-100.0 ng/mL Vitamin D deficiency has been defined by the [place] of Medicine and an Endocrine Society practice guideline as a level of serum 25-OH vitamin D less than 20 ng/mL (1,2). The Endocrine Society went on to further define vitamin D insufficiency as a level between 21 and 29 ng/mL (2). 1. IOM ([place] of Medicine). 2010. Dietary reference intakes for calcium and D. [place]: The National Academies Press. 2. Eunice MF, Vivek NC, Tu CELAYA, et al. Evaluation, treatment, and prevention of vitamin D deficiency: an Endocrine Society clinical practice guideline. JCEM. 2010; 96(7):1911-30. Comp. Metabolic Panel (14)-3 [id number] Reviewed date:08/11/2024 12:58:45 PM Interpretation: Performing Lab:[facility], [address] [facility], [place], Phone - [phone], Director - Maulik Notes/Report: Glucose 81 70-99 [...] IU/L ALT (SGPT) 14 0-32 IU/L LP+Non-HDL Cholesterol-80420 5 Reviewed date:08/11/2024 12:58:45 PM Interpretation: Performing Lab:[facility], Phone - [phone], Director - [facility] Notes/Report: Cholesterol, Total 201 100-199 mg/dL Triglycerides 131 0-149 mg/dL HDL Cholesterol 79 >39 mg/dL VLDL Cholesterol Balwinder 22 5-40 mg/dL LDL Chol Calc (NIH) 100 0-99 mg/dL Non-HDL Cholesterol 122 0-129 mg/dL Anti-Mullerian Hormone (AMH) -020647 Reviewed date:08/11/2024 12:58:45 PM Interpretation: Performing Lab:[facility], Phone - [phone], Director - [facility] Notes/Report: Anti-Mullerian Hormone (AMH) 2.99 For assays employing antibodies, the possibility exists for interference by heterophile antibodies in the samples.1 1.Silvia Hess Interferences in Immunoassays - still a threat. Clin. Chem. 2000; 46: 7120-1287. This test was developed and its performance characteristics determined by [employer]. It has not been cleared or approved by the Food and Drug Administration. Reference Range: Females 20 - 25y: 1.23 - 11.51 Median 4.70 AMH concentrations of >= 1.06 ng/mL is correlated with a better response to ovarian stimulation, produced more retrievable oocytes and higher odds of live according to Gleicher et al. Fertility and Sterility. 2010: 94:0428-5539. The current AMH test method correlates with [...] exclude an AMH-secreting ovarian tumor. Iron and TIBC-174001 Reviewed date:01/14/2024 10:01:53 AM Interpretation: Performing Lab:[facility], Phone - [phone], Director - Maulik Notes/Report: Iron Bind.Cap.(TIBC) 384 250-450 ug/dL UIBC 193 131-425 ug/dL Iron 191 27-159 ug/dL Iron Saturation 50 15-55 % Ferritin-410446 Reviewed date:01/14/2024 10:01:53 AM Interpretation: Performing Lab:[facility] [place], [address] [facility], [place], Phone - [phone], Director - Maulik Notes/Report: Ferritin 110 15-150 ng/mL CBC With Differential/Platel et-857552 Reviewed date:01/14/2024 10:01:53 AM Interpretation: Performing Lab:[facility] [place], [address] [facility], [place], Phone - [phone], Director - Maulik Notes/Report: WBC 8.7 3.4-10.8 [...] Comments: Note: Verifie d by microscopic examination. Reason For Referral No Information Medications Medication SIG (Take, Route, Fr equency, Duration) Notes Start Date End Date Status metFORMIN HCl 500 MG TAKE 1 TABLET BY [facility] TWICE A DAY WITH A MEAL FOR 90 DAYS; Duration: 90 Active Immunizations Vaccine Route Administration Date Status [...] A, ped/adol, 2 dose Unknown 09/12/2020 Administered [id number]-[id number]-OYZ Unknown 2000 Administered JHvK-Lry-XTY Unknown 2000 Administered DTaP Unknown 2000 Administered DTaP Unknown 06/13/2001 Administered DTaP Unknown 03/31/2005 Administered LUXJL-85-Ttkxzwg Vaccine Unknown 08/29/2020 Administere d DYNQM-13-Fslpdfr Vaccine Unknown 09/26/2020 Administere d SHEQS-29-Oqiuscr Vaccine Unknown 05/01/2021 Administere d *Tdap Unknown [...] point) Points 1 Interpretation Negative Section Notes: [facility] - mental health counselor [facility] mental health counselor [facility] health [facility] mental health [facility] mental health [facility] health counselor Problems Problem Type SNOMED Code ICD Code Onset Dates Problem Status W/U Status Risk Notes Problem Iron deficiency anemia (41674390) Iron deficiency anemia, unspecified (D50.9) Active confirmed Problem 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) Active confirmed Problem Polycystic ovary syndrome (disorder) (908356025) Polycystic ovarian syndrome (E28.2) Active confirmed Problem Vitamin D deficiency (75437244) Vitamin D deficiency, unspecified (E55.9) Active confirmed Problem Mixed hyperlipidemia (716365697) Mixed hyperlipidemia (E78.2) Active confirmed Problem Mild recurrent major depression (96221328) Major depressive disorder, recurrent, mild (F33.0) Active confirmed Problem Irregular sleep-wake pattern (811296074) Circadian rhythm sleep disorder, 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 Problem Intermenstrual bleeding - irregular (43275392) Excessive and frequent menstruation with irregular cycle (N92.1) Active confirmed Problem Deep endometriosis of the uterus (N80.02) Active confirmed Vital Signs Heart Rate 73 /min 11/23/2024 Temperature 96.3 degrees Fahrenheit 11/23/2024 Blood pressure diastolic 66 mm Hg 11/23/2024 Oximetry 98 % 11/23/2024 Height 65.5 in 11/23/2024 Blood pressure systolic 108 mm Hg 11/23/2024 Weight 139 lbs 11/23/2024 BMI 22.78 kg/m2 11/23/2024 Encounters Encounter Location Date Provider Diagnosis Rome Palm MD [address] [id number] 12/15/2023 Cris Chang Iron deficiency anem ia, unspecified D50.9 ; Deep endometriosis of the uterus N80.02 ; Polycystic ovarian syndrome E28.2 ; Body mass index [BMI] 21.0-21.9, adult Z68.21 and Acute vaginitis N76.0 Rome Palm MD [address] [id number] 07/27/2024 Cris Charlene Encounter for genera l adult medical examination [...] and behavioral disorders Z13.39 Rome Palm MD [address] [id number] 11/23/2024 Cris Chang Deep endometriosis o f the uterus N80.02 ; Polycystic ovarian syndrome E28.2 ; Impaired fasting glucose R73.01 and Mixed hyperlipidemia E78.2 Rome Palm MD [address] [id number] 01/06/2024 Cris Palm MD [address] [id number] 01/06/2024 Cris Chang Polycystic ovarian syndrome E28.2 and Abnormal weight gain R63.5 Rome Palm MD [address] [id number] 01/10/2024 Cris Chang Polycystic ovarian syndrome E28.2 Rome Palm MD [address] [id number] 01/11/2024 Cris Chang Abnormal weight gain R63.5 Rome Palm MD [address] [id number] 04/17/2024 Cris Palm MD [address] [id number] 06/15/2024 Cris Palm MD [address] [id number] 07/14/2024 Cris Palm MD [address] [id number] 08/11/2024 Cris Palm MD [address] [id number] 08/16/2024 Cris Palm MD [address] [id number] 09/19/2024 Rome Palm MD [address] [id number] 01/06/2024 Cris Palm MD [address] [id number] 01/17/2024 Cris Palm MD [address] [id number] 08/11/2024 Cris Chang Assessments Encounter Date Diagnosis (ICD Code) Assessment Notes Treatment Notes Treatment Clinical Notes Section Notes 12/15/2023 Iron deficiency anemia, unspecified (ICD-10 - D50.9) Patient has had previous lab results with findings of elevated iron levels. Will obtain an updated iron and ferritin level for further evaluation 01/10/2024 Polycystic ovarian syndrome (ICD-10 - E28.2) 01/11/2024 Abnormal weight gain (ICD-10 - R63.5) last filled per [facility]: 11/04/2023 12/15/2023 Deep endometriosis of the uterus [...] hyperlipidemia and hyperglycemia to further assess risk 11/23/2024 Polycystic ovarian syndrome (ICD-10 - E28.2) Reviewed again that PCOS and endometriosis can be found together and best management would be to continue regulating cycles and managing insulin resistance. Patient admits to stopping her metformin and did discuss with patient that we can track her cycles for 3 months and have a follow-up visit then to determine if there is period irregularity. If cycles are not regular at next follow-up consider restarting metformin to further improve risk of insulin resistance 11/23/2024 Deep endometriosis of the uterus (ICD-10 - N80.02) Patient recently underwent exploratory surgery and surgical notes reviewed which did confirm patient did have areas of endometriomas. Spent much time discussing this surgical procedure as well as plans for the future and ensuring patient does not have recurrent episodes of endometriomas/end ometriosis. Patient is interested in not returning back to any hormonal form of control as she would like to see if her periods regulate. Encouraged patient to track her cycles for 3 months with follow-up to discuss how periods have been post surgery. Did spend a great amount of time during today's visit discussing that SUSANNAH's or progesterone IUD would help keep the lining of her uterus then decreasing her risk for recurrent endometriosis episodes. Patient to consider both forms and plan will be to follow-up in 3 months, review menstrual cycle history, and discuss what avenue she would like to take for future control options 11/23/2024 Impaired fasting glucose (ICD-10 - R73.01) See plan above.Patient remains off metformin at this time. Encouraged patient to work on diet and exercise and we will plan to reassess labs at this time to ensure hemoglobin A1c and insulin levels are within normal range 07/27/2024 Encounter for immunization (ICD-10 - Z23) [...] past and there is immunity to rubeola 11/23/2024 Mixed hyperlipidemia (ICD-10 - E78.2) Patient shared concerns of previous elevated lipid levels due to her father's history of hyperlipidemia. Discussed with patient that her overall cardiovascular risk is low given her age but will obtain updated lipid panel to assess LDL level 07/27/2024 Encounter for screening for other viral [...] (ICD-10 - Z12.4) Patient is followed by [facility] [employer] and did complete an updated Pap smear [...] Name Order Date QUANTIFERON TB GOLD 04/26/2023 Hemoglobin [id number] 11/23/2024 Insulin-[id number] 11/23/2024 Comp. Metabolic Panel ([id number] 2024 LP+Non-HDL Cholesterol-169116 11/23/2024 Next Appt Details Provider Name:Cris Chang , 03/05/2025 03:30:00 PM, [address] [place] [address], [phone], Provider Name:Cris Chang , 08/02/2025 03:30:00 PM, [address] [place] [address], [phone], Insurance Providers Payer Name Payer Address Payer Phone Subscriber Number Group Number Insured Name Patient Relationship to Insured Coverage Start Date Coverage End Date [facility] [address] [place] [address] [id number] Amalia Marquez Self - patient is the insured Medical (General) History Medical History History ICD Code Asthma (as a child - resolved) Surgical History Surgery Date(Month/Year) laparoscopic incision of endometriosis 0 10/2024 Hospitalization History Reason Date(Month/Year)
== END 2024-12-12 14:14 | disposition home or self-care (01) ==
LOC: HO.HOP 13:14
PROVIDERS: Visit Provider Counselor Mental Health
DX: F98.8 Other specified behavioral and emotional disorders with onset usually occurring in childhood and adolescence (principal); F43.21 Adjustment disorder with depressed mood
CPT/HCPCS: 90837

== ENCOUNTER 2024-12-26 13:39 | Outpatient (AMB) | payer OTHER, SELFPAY ==
--- NOTE | 2024-12-26 13:30 | A.OFFWM_ITS ---
Intake Intake Visit Reasons: VIDEO OP Therapy Behavioral Health Assessment Weight Management Therapy Therapy Notes Details Subjective: Patient reports recent medication changes, including discontinuation of Metformin and control. She expresses feeling upset and disappointed, as she initially believed her surgery would resolve her health issues. She is now coming to terms with endometriosis as a lifelong, chronic condition and is experiencing increased emotional distress related to ongoing symptoms and their impact on various aspects of her life, including mood, daily functioning, and future planning. Patient describes frustration, sadness, and some anxiety about managing chronic pain and uncertainty about her health trajectory. She reports difficulty maintaining motivation and is struggling with negative self-talk and feelings of discouragement. Patient is open to learning new coping strategies and expresses interest in improving her emotional resilience and pain management skills. Objective: PT presents for a F/up BH juan via Telehealth. * Engaged patient in identifying and challenging cognitive distortions, with a focus on suq-it-yrrljwl thinking. * Introduced and practiced the use of Subjective Units of Distress Scale (SUDS) to monitor pain and emotional distress. * Provided psychoeducation on chronic illness adjustment and the importance of self-compassion. * Explored behavioral activation strategies to support engagement in valued activities despite pain. * Reviewed relaxation and grounding techniques for acute distress. * Encouraged use of a mood and pain diary to track symptoms and identify patterns. Assessment/Response: * Mental status: Alert, oriented, mood congruent with situation, affect appropriate, thought process logical, no evidence of psychosis. * Risk reported/identified: None Assessment & Plan Assessment & Plan (1) ADD (attention deficit disorder): Code(s): F98.8 - Other specified behavioral and emotional disorders with onset usually occurring in childhood and adolescence Qualifiers: Attention deficit-hyperactivity disorder type: predominantly inattentive (2) Adjustment disorder with depressed mood: Code(s): F43.21 - Adjustment disorder with depressed mood Plan * Continue cognitive restructuring and pain management interventions. * Encourage use of mood/pain diary and practice coping skills between sessions. * Monitor adjustment to medication changes and ongoing emotional response to chronic illness. Follow up in 1 week. Next juan: 01/02/25 at 12 via Telehealth Telehealth Telehealth Telehealth Platform: [employer] [place] Location of provider rendering services: other (Home office, [place], [place].) Location of patient: address on file Patient Identification confirmed using: Name, : Yes Telehealth method: video Patient verbally consented to treatment: Yes Patient verbally consented to billing insurance company: Yes Patient informed of any privacy concerns related to visit: Yes Minutes spent on Phone/Video with Pt.: 35 Coding Level of Care Code Established Pt Tele Psytx 30 mins (44239) Patient Type Established Diagnoses ADD (attention deficit disorder) F98.8 Attention deficit-hyperactivity disorder type: predominantly inattentive Adjustment disorder with depressed mood F43.21 Time Spent (min) 35
--- OUTSIDE RECORDS SUMMARY | 2024-12-26 14:55 | XMS_ITS | Patient Health Record ---
Author Organization Rome Palm MD Address [address] [id number] Care Team Providers Care Telephone Maintainer Name Role Phone Cris Chang Primary Care Provider [phone] Rome Palm Unavailable [phone] Allergies No Known Allergies Results Component Value Reference Range Notes Iron and TIBC-120415 Reviewed date:08/11/2024 12:58:45 PM Interpretation: Performing Lab:[facility], [address] [place] [address], Phone - [phone], Director - Shayy Notes/Report: Iron Bind.Cap.(TIBC) 438 250-450 ug/dL UIBC 277 131-425 ug/dL Iron 161 27-159 ug/dL Iron Saturation 37 15-55 % Hemoglobin S5d-[id number] Reviewed date:08/11/2024 12:58:45 PM Interpretation: Performing Lab:[facility], [address] [place] [address], Phone - [phone], Director - Maulik Notes/Report: Hemoglobin A1c 5.1 4.8-5.6 % . Prediabetes: 5.7 - 6.4 Diabetes: >6.4 Glycemic control for adults with diabetes: <7.0 Urinalysis, Complete-[id number] Reviewed date:08/11/2024 12:58:45 PM Interpretation: Performing Lab:[facility], [address] [place] [address], Phone - [phone], Director - Bradlydry Notes/Report: Specific [place] 1.014 1.005-1.030 pH 6.0 5.0-7.5 Urine-Color Yellow [...] None seen /lpf Bacteria Few None seen/Few Ferritin-[id number] Reviewed date:08/11/2024 12:58:45 PM Interpretation: Performing Lab:[facility] [place], [address] [place] [address], Phone - [phone], Director - MDJodry Notes/Report: Ferritin 56 15-150 ng/mL CBC With Differential/Platel et-953711 Reviewed date:08/11/2024 12:58:45 PM Interpretation: Performing Lab:[facility] [place], [address] [place] [address], [place], Phone - [phone], Director - MDJodry Notes/Report: WBC 8.7 3.4-10.8 [...] Grans (Abs) 0.0 0.0-0.1 x10E3/uL Vitamin D, 59-Jszthez-079013 Reviewed date:08/11/2024 12:58:45 PM Interpretation: Performing Lab:[facility], [address] [facility], Phone - [phone], Director - Maulik Notes/Report: Vitamin D, 25-Hydroxy 132.0 30.0-100.0 ng/mL Vitamin D deficiency has been defined by the [place] of Medicine and an Endocrine Society practice guideline as a level of serum 25-OH vitamin D less than 20 ng/mL (1,2). The Endocrine Society went on to further define vitamin D insufficiency as a level between 21 and 29 ng/mL (2). 1. IOM ([place] of [employer]). 2010. Dietary reference intakes for calcium and D. [place]: The National Academies Press. 2. Eunice MF, Vivek NC, Tu CELAYA, et al. Evaluation, treatment, and prevention of vitamin D deficiency: an Endocrine Society clinical practice guideline. JCEM. 2010; 96(7):1911-30. Comp. Metabolic Panel (14)-[id number] [id number] Reviewed date:08/11/2024 12:58:45 PM Interpretation: Performing Lab:[facility], [address] [facility], Phone - [phone], Director - Maulik Notes/Report: Glucose 81 70-99 [...] IU/L ALT (SGPT) 14 0-32 IU/L LP+Non-HDL Cholesterol-71650 5 Reviewed date:08/11/2024 12:58:45 PM Interpretation: Performing Lab:[facility], [address] [facility], Phone - [phone], Director - MTJeremy Notes/Report: Cholesterol, Total 201 100-199 mg/dL Triglycerides 131 0-149 mg/dL HDL Cholesterol 79 >39 mg/dL VLDL Cholesterol [place] 22 5-40 mg/dL LDL Chol Calc (NIH) 100 0-99 mg/dL Non-HDL Cholesterol 122 0-129 mg/dL Anti-Mullerian Hormone (AMH) -[id number] Reviewed date:08/11/2024 12:58:45 PM Interpretation: Performing Lab:[facility], [address], [place], Phone - [phone], Director - Maulik Notes/Report: Anti-Mullerian Hormone (AMH) 2.99 For assays employing antibodies, the possibility exists for interference by heterophile antibodies in the samples.1 1.Silvia Hess Interferences in Immunoassays - still a threat. Clin. Chem. 2000; 46: 3202-8393. This test was developed and its performance characteristics determined by [facility]. It has not been cleared or approved by the Food and Drug Administration. Reference Range: Females 20 - 25y: 1.23 - 11.51 Median 4.70 AMH concentrations of >= 1.06 ng/mL is correlated with a better response to ovarian stimulation, produced more retrievable oocytes and higher odds of live according to Gleicher et al. Fertility and Sterility. 2010: 94:8385-8565. The current AMH test method correlates with [...] HCl 500 MG TAKE 1 TABLET BY [facility] TWICE A DAY WITH A MEAL FOR [...] A, ped/adol, 2 dose Unknown 09/12/2020 Administered CSnI-Vvs-KRG Unknown 2000 Administered WXbX-Ekb-CSF Unknown 2000 Administered DTaP Unknown 2000 Administered DTaP Unknown 06/13/2001 Administered DTaP Unknown 03/31/2005 Administered CHZIW-01-Dnptyjb Vaccine Unknown 08/29/2020 Administere d VKJNI-82-Hbmbdgp Vaccine Unknown 09/26/2020 Administere d ONXAK-95-Kfzdzuy Vaccine Unknown 05/01/2021 Administere d *Tdap Unknown [...] point) Points 1 Interpretation Negative Section Notes: [facility] - mental health counselor [facility] - mental health counselor [facility] - mental health counselor [facility] Problems Problem Type SNOMED Code ICD Code Onset Dates Problem Status W/U Status Risk Notes Problem Iron deficiency anemia (04141136) Iron deficiency anemia, unspecified (D50.9) Active confirmed Problem 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 confirmed Problem Polycystic ovary syndrome (disorder) (854403457) Polycystic ovarian syndrome (E28.2) Active confirmed Problem Vitamin D deficiency (07845010) Vitamin D deficiency, unspecified (E55.9) Active confirmed Problem Mixed hyperlipidemia (324270257) Mixed hyperlipidemia (E78.2) Active confirmed Problem Mild recurrent major depression (37925676) Major depressive disorder, recurrent, mild (F33.0) Active confirmed Problem Irregular sleep-wake pattern (630649080) Circadian rhythm sleep disorder, 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 Problem Intermenstrual bleeding - irregular (24321023) Excessive and frequent menstruation with irregular cycle (N92.1) Active confirmed Problem Deep endometriosis of the uterus (N80.02) Active confirmed Vital Signs Heart Rate 73 /min 11/23/2024 Temperature 96.3 degrees Fahrenheit 11/23/2024 Oximetry 98 % 11/23/2024 Blood pressure diastolic 66 mm Hg 11/23/2024 Height 65.5 in 11/23/2024 Blood pressure systolic 108 mm Hg 11/23/2024 Weight 139 lbs 11/23/2024 BMI 22.78 kg/m2 11/23/2024 Encounters Encounter Location Date Provider Diagnosis Rome Palm MD [address] [id number] 07/27/2024 Cris Chang Encounter for genera l [...] and behavioral disorders Z13.39 Rome Palm MD [address] [id number] 11/23/2024 Cris Chang Deep endometriosis o f the uterus N80.02 ; Polycystic ovarian syndrome E28.2 ; Impaired fasting glucose R73.01 and Mixed hyperlipidemia E78.2 Rome Palm MD [address] [id number] 01/06/2024 Cris Palm MD [address] [id number] 01/06/2024 Cris Chang Polycystic ovarian syndrome E28.2 and Abnormal weight gain R63.5 Rome Palm MD [address] [id number] 01/10/2024 Cris Charlene Polycystic ovarian syndrome E28.2 Rome Palm MD [address] [id number] 01/11/2024 Cris Charlene Abnormal weight gain R63.5 Rome Palm MD [address] [id number] 04/17/2024 Cris Palm MD [address] [id number] 06/15/2024 Cris Palm MD [address] [id number] 07/14/2024 Cris Palm MD [address] [id number] 08/11/2024 Cris Palm MD [address] [id number] 08/16/2024 Cris Palm MD [address] [id number] 09/19/2024 Rome Palm MD [address] [id number] 01/06/2024 Cris Palm MD [address] [id number] 01/17/2024 Cris Palm MD [address] [id number] 08/11/2024 Cris Chang Assessments Encounter Date Diagnosis (ICD Code) Assessment Notes Treatment Notes Treatment Clinical Notes Section Notes 01/10/2024 Polycystic ovarian syndrome (ICD-10 - E28.2) 01/11/2024 Abnormal weight gain (ICD-10 - R63.5) [facility]: 11/04/2023 01/06/2024 Polycystic ovarian syndrome (ICD-10 - E28.2) [...] gain (ICD-10 - R63.5) last filled: 11/04/2023 07/27/2024 Encounter for antibody response examination (ICD-10 [...] (ICD-10 - Z12.4) Patient is followed by [facility] [employer] and did complete an updated Pap smear [...] Order Date QUANTIFERON TB GOLD 04/26/2023 Hemoglobin [id number] 11/23/2024 Insulin-403316 11/23/2024 Comp. Metabolic Panel [id number] 2024 LP+Non-HDL Cholesterol-587406 11/23/2024 Next Appt Details Provider Name:Cris Chang , 03/05/2025 03:30:00 PM, [address] [place] [address], [phone], Provider Name:Cris Chang , 08/02/2025 03:30:00 PM, [address] [place] [address], [phone], Insurance Providers Payer Name Payer Address Payer Phone Subscriber Number Group Number Insured Name Patient Relationship to Insured Coverage Start Date Coverage End Date [employer] [address] [place] [address] [id number] Amalia Marquez Self - patient is the insured Medical (General) History Medical History History ICD Code Asthma (as a child - resolved) Surgical History Surgery Date(Month/Year) laparoscopic incision of endometriosis 0 10/2024 Hospitalization History Reason Date(Month/Year)
== END 2024-12-26 15:18 | disposition home or self-care (01) ==
LOC: HO.HOP 13:39
PROVIDERS: Visit Provider Counselor Mental Health
DX: F98.8 Other specified behavioral and emotional disorders with onset usually occurring in childhood and adolescence (principal); F43.21 Adjustment disorder with depressed mood
CPT/HCPCS: 90832